=== PATIENT | male | born 1990 | race Caucasian/White ===

== ENCOUNTER 2017-10-04 20:56 | Inpatient (IN) | payer SELFPAY ==
[2017-10-04 20:58] VITALS: BP 128/55; PULSE 138; RESP 20; TEMP 37.9; O2SAT 96; BMI 20.7
--- NOTE | 2017-10-04 21:19 | RAD_ITS ---
STUDY: X-RAY - LEFT FOOT CLINICAL: Male, 27 years old. Left foot pain TECHNIQUE: 2 view(s) of the foot. COMPARISON: None. FINDINGS: Normal talus, calcaneus, and tarsal bones. Normal visualized subtalar, talonavicular, calcaneocuboid, tarsal and tarsometatarsal articulations. Normal metatarsi. Normal metatarsophalangeal joint of the great toe. Normal tibial and fibular sesamoid bones. Normal interphalangeal joint of the great toe. Normal phalanges of the great toe. Normal second through fifth metatarsophalangeal joints. Normal interphalangeal joints and phalanges of the lesser toes. The soft tissue structures are unremarkable. RAD/Foot 2 Views IMPRESSION: Normal x-ray examination of the foot. Electronically Signed: Ashley Sandra MD at 23:39 EDT Tel , Service support ,
--- NOTE | 2017-10-04 21:20 | RAD_ITS ---
STUDY: X-RAY - LEFT KNEE REASON FOR EXAM: Male, 27 years old. Pain TECHNIQUE: 2 view(s) of the knee. COMPARISON: None. FINDINGS: There is no evidence of fracture or dislocation. There are no significant degenerative changes. There are no radiodense foreign bodies. RAD/Knee 1 or 2 Views IMPRESSION: No fracture or dislocation. Electronically Signed: Keith You, at 23:22 EDT Tel , Service support ,
--- NOTE | 2017-10-04 21:21 | RAD_ITS ---
STUDY: X-RAY - PELVIS REASON FOR EXAM: Male, 27 years old. Pelvic pain TECHNIQUE: One view of the pelvis was obtained. COMPARISON: None. FINDINGS: There is a non-specific bowel gas pattern. Normal visualized soft tissue structures. Normal bilateral iliac wings, sacroiliac joints and visualized sacrum. Normal visualized bilateral superior and inferior pubic rami. Normal pubic symphysis. Normal ischial tuberosities. Bony bump at the lateral aspect of junction femoral head-neck suggesting cam type femoral acetabular impingement. Normal right acetabulum. Normal right hip joint. Bony bump at the lateral aspect of junction femoral head-neck suggesting cam type femoral acetabular impingement. Normal left acetabulum. Normal left hip joint. RAD/Pelvis 1 or 2 Views IMPRESSION: No acute bone injury of the pelvis. Electronically Signed: Ashley Sandra MD at 23:40 EDT Tel , Service support ,
[2017-10-04 22:14] LABS: Mean Corp Hgb Conc 35.1 g/gl (32-36); Mean Corpuscular Hgb 30.8 pg (27.0-32.0); Mean Corpuscular Volume 87.7 fL (80-94); Mean Platelet Vol. 11.9 fl (6.2-12.0); Platelet Count 134 K/mm3 (150-450); RBC Distribution Width CV 13.1 % (11.6-14.6); RBC Distribution Width SD 42.2 fl (35.1-43.9); Red Blood Count 4.22 M/mm3 (4.6-6.2); White Blood Count 14.2 K/mm3 (4.4-11.0)
--- NOTE | 2017-10-04 22:14 | RAD_ITS ---
XR Femur Min 2 Views INDICATION: SHOT UP WITH METH 3 WEEKS AGO IN LEFT FOOT. STATES PAIN PROGRESSING UP LEG, UNABLE TO WALK ON IT NOW COMPARISON: None TECHNIQUE: Frontal and lateral views of the left femur FINDINGS: The left femur is intact and there is normal alignment at the left hip and left knee. No evidence of radiopaque foreign body. RAD/Femur Min 2 Views IMPRESSION: Left femur is intact. at 2302 Reported and signed by: Michelle Alvarenga MD Electronically Signed: Michelle Alvarenga MD at 22:01 EDT Tel , Service support ,
[2017-10-04 22:15] LABS: Erythrocyte Sedimentation Rate 57 mm/hr (0-15)
[2017-10-04 22:16] LABS: Differential Indicated MANUAL DIFF; POSITIVE COUNT YES; POSITIVE DIFFERENTIAL YES; POSITIVE MORPHOLOGY YES
[2017-10-04 22:20] LABS: International Normalized Ratio 1.3; Prothrombin Time (Protime)PT. 16.6 SECONDS (11.7-14.9)
[2017-10-04] MEDS: 0.9% Normal Saline 1,000 ML 1000 ML IV (22:25)
[2017-10-04] MEDS: Morphine 4 MG/ML Syringe IV (22:25)
[2017-10-04 22:31] LABS: Alcohol, Blood (Medical)-Serum < 3.0 mg/dL
[2017-10-04 22:40] LABS: Lactic Acid 1.4 mmol/L (0.4-2.0)
[2017-10-04 22:47] LABS: ALB/GLOB Ratio 0.7 RATIO (0.9-2.4); AST(SGOT) 107 U/L (15-37); Alanine Aminotransfer ALT/SGPT 38 U/L (16-61); Albumin, Serum 2.8 g/dL (3.2-5.0); Alkaline Phosphatase 62 U/L (45-117); Anion Gap 12 (5-15); BUN 21 mg/dL (7-18); BUN/Creat Ratio 22.2 RATIO (10-20); Calcium,Total 8.5 mg/dL (8.5-10.1); Chloride 101 mmol/L (98-107); Creatinine, Serum 0.94 mg/dL (0.70-1.30); EST Glomerular Filtration Rate 100 mL/min (>60); Est Glom Filt Rate - Afr Amer 121 mL/min (>60); Estimated Creatinine Clearance 92.99 ml/min; Globulin 4.2 g/dL (2.2-4.2); Glucose 136 mg/dL (74-106); Potassium 4.1 mmol/L (3.5-5.1); Sodium Level 131 mmol/L (136-145)
--- NOTE | 2017-10-04 23:00 | ED.VISSUMM ---
- ER Visit Summary Date of Service: 10/04/17 Chief Complaint: [] Left lower extremity pain History of Present Illness: The patient is a 27 M [] planing of left lower extremity pain Physical Examination: [] Test Results: [] CBC shows elevated white blood cell count 14.2. BMP reveals sodium of 131, bicarbonate 18. INR 1.3. ESR 57. Lactic acid 1.4. X-rays of the hip/pelvis, femur, knee, foot do not reveal gas and are unremarkable. Emergency Department Course and Treatment: [] Patient received intravenous fluids, morphine for symptom relief. Patient was tachycardic in the 130s. Patient given intravenous vancomycin and Zosyn for intravenous drug abuse and new onset of cellulitis. In light of the patient's high white blood cell count and tachycardia he meets septic criteria. Blood cultures were obtained prior to administration of antibiotics. X-rays of the left lower extremity are negative for gas with concern for possible necrotizing fasciitis with a physical exam out of proportion for pain. Treatment Plan: [] Admission for intravenous antibiotics, fluids. Disposition: [] Admit, stable. Impression: [] Left foot cellulitis IV drug abuse Sepsis This note was generated with [employer] dictation software. It may contain incorrect words, spelling, and punctuation that were not noted in review of the chart prior to signing ED Disposition - Plan for ED Patient: Chief Complaint: Lower Extremity Injury Referrals: Care Physician,No Primary [Primary Care Provider] -
[2017-10-04 23:03] LABS: Absolute Lymphocyte Count 0.57 X10^3/ul (0.83-4.51); Absolute Neutrophil Count 11.9 X10^3/uL (2.0-7.7); Lymphocyte # 0.57 X10^3/ul (4.0); Neutrophil # 11.93 X10^3/uL (2.7-7.7); Neutrophil-Band 23 % (0-5); Neutrophil-Segmented 61 % (47-70)
[2017-10-04 23:04] LABS: Differential Comment SCANNED; Lymphocyte 4 % (19-41); Monocyte 12 % (0-10); Platelet Estimate SLT DEC (ADEQ)
[2017-10-04 23:06] LABS: Vacuolated Cells 2+
[2017-10-04 23:12] LABS: Total Cells Counted 100 (MANUAL DIFF)
[2017-10-04 23:30] VITALS: BP 142/84; PULSE 115; RESP 20; O2SAT 96
[2017-10-04 23:41] LABS: Vista UDS pH Range 6
--- NOTE | 2017-10-04 23:59 | HP.PCM_ITS ---
Problem List (1) Tobacco use Status: Chronic (2) IV drug user Status: Chronic (3) Heroin abuse Status: Chronic (4) Methamphetamine abuse Status: Chronic (5) Adderall use disorder, mild, abuse Status: Chronic (6) Left leg cellulitis Status: Acute History of Present Illness Date of Admission: 10/04/17 Chief Complaint: LLE erythema, pain, s/p IVDA The patient is a 27 y/o M w/ PMHx: Polysubstance abuse w/ IVDA w/ Heroine, Meth and Adderall, Tobacco use who presents to the [facility] ED on 10/04/17 with history of IV LLE foot injection ~ 2-3 weeks prior with meth with onset over the last several days severe LLE pain, increased warmth, severe debility with denied fevers, possible chills. Upon ED presentation he is in severe discomfort and was medicated, following falling asleep intermittently, poor historian to questioning. In the ED evaluation included T 100.3, HR 138-->115, BP 128/55, RR 20, 96% on RA, CBC w/ WBC 14.2, Hgb 13, Plts 134 with L shift, INR 1.3, CMP w/ Na 131, CO2 18, BUN/Cr 21/0.94, glucose 136, TBili 1.10, AST/ALT 107/38, CRP 297 , ESR 57, UDS pending, EtOH Unremarkable, plain films LLE without acute findings of free air per ED physician. Past Medical History Past Medical History (Chronic Problems): Chronic Problems Tobacco use (Chronic) IV drug user (Chronic) Heroin abuse (Chronic) Methamphetamine abuse (Chronic) Adderall use disorder, mild, abuse (Chronic) Allergies No Known Allergies Allergy (Verified 10/04/17 21:01) Home Medications: Ambulatory Orders Medication Instructions Recorded No Known/Unobtainable [No Known 04/24/17 Home Medications] Surgical History: no surgical history Psychiatric History: No pertinent psych hx Lives: Spouse/ Significant Other, With Family Smoking Status: Current every day smoker - 1 ppd. Tobacco Use: Cigarettes Alcohol: None Drugs: Heroin, - - Meth, Adderall all used IV. - *Family History Maternal History Items: Diabetes Paternal History Items: Diabetes Review of Systems Constitutional: Reports: Anorexia, Chills, Malaise, Weakness, Fatigue. Denies: Fever, Weight Change HEENT: Denies: Head Aches, Sinus Congestion, Sinus Drainage Cardiovascular: Denies: Chest Pain, Palpitations Respiratory: Denies: Cough, Shortness of breath at rest, Sputum production Gastrointestinal: Denies: Abdominal Pain, Nausea, Vomiting Genitourinary: Denies: Dysuria Musculoskeletal: Reports: Foot Pain, Leg Pain, Muscle pain. Denies: Joint Pain , Joint Tenderness Skin: Reports: Skin Changes. Denies: Rash, Wounds Neurological: Denies: Numbness, Tingling, Focal weakness Psychiatric: Denies: Anxiety, Depression, Homicidal Ideations, Suicidal Ideations Hematologic/ Lymphatic: Denies: Easy Bruising, Easy Bleeding VTE Information - Inpt Only VTE Present on Admission: No VTE Mechan Device Prophylaxis: SCD's VTE Pharm Prophylaxis ordered?: No Reason prophylaxis not ordered:: Medical Contraindication - Holding for any possible OR needs. Patient Problems: Active and Suspected Problems Left leg cellulitis (Acute) Subjective: Laying in the ED bed, fatigued appearance, severe pain with any palpation LLE. Objective: Physical Examination: General: patient awakens to stimuli, intermittently alert, oriented x 3 once awakened, cooperative, seated upright in the ED bed, severe pain w/ examination LLE. Skin: normal color, turgor, no icterus, cyanosis except LLE w/ mild erythema to the foot dorsally with obvious IVDA, mild erythema extending to proximal viramontes/ calf region, notable warm to touch LLE to upper thigh, severe out of proportion pain to palpation even gently LLE foot to thigh. HEENT: AT/NC, EOMI, PERRLA, dry MM, poor dentition (meth mouth), no carotid bruits or JVD noted. Lungs: CTA bilaterally, moderate effort, mild decrease BL bases, no rales, ronchi or wheezing. Heart: Tachycardic w/ regular rhythm; no gallop, rub audible. Abdomen: soft, thin habitus, NTTP, ND, normal BS, +HM. Extremities: no cyanosis, clubbing, see skin. Neurological: patient awakens to stimuli, intermittently alert, oriented x 3 once awakened; cognitive function suspect decreased from baseline; pupils equally reactive to light and accomodation, sluggish; cranial nerves II-XII grossly normal, moving all 4 extremities except severely limited LLE secondary to severe pain, strength accordingly severely globally decreased. Psychiatric: affect appears fatigued, no acute evidence of depressive or anxiety feelings. - Physical Exam Vital Signs Temp Pulse Resp BP Pulse Ox 100.3 F H 115 H 20 H 142/84 H 96 10/04/17 20:58 10/04/17 23:30 10/04/17 23:30 10/04/17 23:30 10/04/17 23:30 Oxygen Delivery Method Room Air Weight: 125 lb Body Mass Index (BMI) 20.7 Laboratory Tests Past 24 Hrs 10/04/17 10/04/17 10/04/17 21:55 21:55 21:55 WBC 14.2 H RBC 4.22 L Hgb 13.0 Hct 37.0 L MCV 87.7 MCH 30.8 MCHC 35.1 RDW 13.1 RDW Differential 42.2 Plt Count 134 L MPV 11.9 Neut % (Auto) Not Reportable Absolute Neuts (auto) 11.9 H Absolute Lymphs (auto) 0.57 L Total Counted 100 Neutrophils % (Manual) 61 Band Neutrophils % 23 H Lymphocytes % (Manual) 4 L Monocytes % (Manual) 12 H Differential Comment 2+ Diff Path Review May foll Platelet Estimate SLT DEC ESR 57 H PT 16.6 H INR 1.3 Sodium 131 L Potassium 4.1 Chloride 101 Carbon Dioxide 18.0 L Anion Gap 12 BUN 21 H Creatinine 0.94 Estim Creat Clear Calc 92.99 Est GFR (MDRD) Af Amer 121 Est GFR (MDRD) Non-Af 100 BUN/Creatinine Ratio 22.2 H Glucose 136 H Lactic Acid Calcium 8.5 Total Bilirubin 1.10 H AST 107 H ALT 38 Alkaline Phosphatase 62 C-React Prot Ext Range 297.00 H Total Protein 7.0 Albumin 2.8 L Globulin 4.2 Albumin/Globulin Ratio 0.7 L Urine Opiates Screen Urine Methadone Screen Ur Barbiturates Screen Ur Phencyclidine Scrn Ur Amphetamines Screen U Methamphetamin-MDMA U Benzodiazepines Scrn Urine Cocaine Screen U Cannabinoids Screen Ur Drug Screen Comment Ethyl Alcohol 10/04/17 10/04/17 10/04/17 21:55 21:55 23:20 WBC RBC Hgb Hct MCV MCH MCHC RDW RDW Differential Plt Count MPV Neut % (Auto) Absolute Neuts (auto) Absolute Lymphs (auto) Total Counted Neutrophils % (Manual) Band Neutrophils % Lymphocytes % (Manual) Monocytes % (Manual) Differential Comment Diff Path Review Platelet Estimate ESR PT INR Sodium Potassium Chloride Carbon Dioxide Anion Gap BUN Creatinine Estim Creat Clear Calc Est GFR (MDRD) Af Amer Est GFR (MDRD) Non-Af BUN/Creatinine Ratio Glucose Lactic Acid 1.4 Calcium Total Bilirubin AST ALT Alkaline Phosphatase C-React Prot Ext Range Total Protein Albumin Globulin Albumin/Globulin Ratio Urine Opiates Screen Pending Urine Methadone Screen Pending Ur Barbiturates Screen Pending Ur Phencyclidine Scrn Pending Ur Amphetamines Screen Pending U Methamphetamin-MDMA Pending U Benzodiazepines Scrn Pending Urine Cocaine Screen Pending U Cannabinoids Screen Pending Ur Drug Screen Comment Ethyl Alcohol < 3.0 Assessment/Plan Active and Suspected Problems Left leg cellulitis (Acute) The patient is a 27 y/o M w/ PMHx: Polysubstance abuse w/ IVDA w/ Heroine, Meth and Adderall, Tobacco use who presents to the [facility] ED on 10/04/17 with history of IV LLE foot injection ~ 2-3 weeks prior with meth with onset over the last several days severe LLE pain, increased warmth, severe debility with denied fevers, possible chills. (1) LLE Foot and Extremity Cellulitis w/ Severe Pain, Possible DVT, concern for Possible Soft Tissue Nec Infection: Will admit to MS, maintain on IV vanc and zosyn, plan repeat CBC in AM, continue affected extremity elevation above heart when seated and in bed, monitor erythema outline with VS checks. Givne presentation and severity of pain, plain films obtained in the ED to assure no evidence of free air which were unremarkable but this is only seen in rare or advanced case, CRP and ESR notably elevated, high risk patient w/ IVDA history for necrotizing soft tissue infection, will additionally obtain CT LLE w/ contrast and will also consult and contact Dr. Pack to evaluate patient, obtain TCK level. Will maintain NPO after midnight in case of operative needs. Hold on chemoprophylaxis pending evaluation in case of operative needs. PRN pain regimen, antiemetics. (2) Polysubstance Abuse, IVDA Hx w/ Elevated LFTs: Elevated LFTs w/ admission AST/ALT 107/38, denies ETOH use/abuse. Will obtain HIV, hepatitis panel. Notes heroine IV, meth IV as well as crushed adderall IV. He is a poor historian in regards to timeline and amount of usage. UDS pending upon admission. CM consulted. Notes he lives with his who is a non-user and children. (3) Tobacco Abuse: Encouraged cessation, inpatient consultation per RT, NR if desired. (4) Hyponatremia, Hypovolemic: Na 131 upon admission, BUN 21, suspect moderately dehydration, continue IVFs. (5) Hyperglycemia: Admission glucose 136, likely stress with acute infection. (6) DVT Prophylaxis: SCD to RLE, hold chemoprophylaxis pending CT LLE and Dr. Pack evaluation. Code Visit Inpatient E&M: 47490 Init Hosp L3
[2017-10-05] LABS: Amphetamine Urine VISTA POSITIVE (<1000 ng/mL); Barbiturate Urine VISTA NEGATIVE (< 200 ng/mL); Benzodiazepine Urine VISTA NEGATIVE (< 200 ng/mL); Cocaine Urine VISTA NEGATIVE (< 300 ng/mL); Ecstacy Urine VISTA NEGATIVE (< 500 ng/mL); Methadone Urine VISTA NEGATIVE (< 300 ng/mL); PCP Urine VISTA NEGATIVE (< 25 ng/mL); THC Urine VISTA NEGATIVE (< 50 ng/mL)
--- NOTE | 2017-10-05 00:28 | CT_ITS ---
STUDY: CT LEFT FEMUR WITH CONTRAST REASON FOR EXAM: Male, 27 years old. Extensive edema in the anterior medial and posterior compartments of the thigh. RADIATION DOSAGE (If Supplied By Facility): CTDIvol = ( 15.35 ) mGy, DLP = ( 1654.77 ) mGycm TECHNIQUE: Transaxial CT imaging of the femur was performed post contrast administration. The examination was performed with intravenous administration of 100ML ml of Isovue 300 contrast material. Sagittal and coronal images were reconstructed. Individualized dose optimization techniques were used for this CT. COMPARISON: None. FINDINGS: Normal visualized femur. There is extensive edema along the anterior, medial and posterior compartments of the thigh consistent with cellulitis. There is no evidence of abscess formation. There is no air in the soft tissues. There is no evidence of osteomyelitis. There is no enhancing abnormality. CT/Extremity Lower WITH Contrast IMPRESSION: Extensive edema in the anterior medial and posterior compartments of the thigh. Electronically Signed: Ashley Sandra MD at 2:28 EDT Tel , Service support ,
[2017-10-05 00:30] VITALS: BP 143/94; PULSE 108; RESP 16; TEMP 38; O2SAT 98
[2017-10-05 00:37] VITALS: BMI 21.5
[2017-10-05 00:45] VITALS: BMI 21.6
--- NOTE | 2017-10-05 00:59 | PCM.RX.CS ---
Consult Pharmacy has been consulted to manage selected antiobiotic: Vancomycin Type of Consult: New start Suspected Infection: Skin/Soft tissue Prior Doses of Antibiotics Received/Current Regimen: Medications Vancomycin HCl 750 mg/ (Dextrose) 265 mls @ 250 mls/hr IV Q8H MICHEL Discontinued Medications Vancomycin HCl 1,000 mg/ N/A 200 mls @ 200 mls/hr IV X1 THEN RX TO DOSE ONE Stop: 10/04/17 23:55 Last Admin: 10/05/17 00:06 Dose: 200 mls/hr Labs: Sodium 131 mmol/L (136-145) L 10/04/17 21:55 Potassium 4.1 mmol/L (3.5-5.1) 10/04/17 21:55 Chloride 101 mmol/L (98-107) 10/04/17 21:55 Carbon Dioxide 18.0 mmol/L (21.0-32.0) L 10/04/17 21:55 Anion Gap 12 (5-15) 10/04/17 21:55 BUN 21 mg/dL (7-18) H 10/04/17 21:55 Creatinine 0.94 mg/dL (0.70-1.30) 10/04/17 21:55 Est GFR (MDRD) Af Amer 121 mL/min (>60) 10/04/17 21:55 Est GFR (MDRD) Non-Af 100 mL/min (>60) 10/04/17 21:55 BUN/Creatinine Ratio 22.2 RATIO (10-20) H 10/04/17 21:55 Glucose 136 mg/dL (74-106) H 10/04/17 21:55 Weight used for dosin.8 kg Estimated Creatinine Clearance: 96 Goal Trough: 10-15 mcg/mL Pharmacy Plan for Drug Dosing: Pharmacy Service will continue to monitor and adjust dosing as required. Follow-Up Labs: Trough Vancomycin Labs to be done on [date and time ordered]: 10/06/17 @2795
--- NOTE | 2017-10-05 01:22 | NURSING ---
Pt taken to CT at this time per Lynette GILLETTE
--- NOTE | 2017-10-05 01:38 | NURSING ---
retuned to room from ct
[2017-10-05] MEDS: 0.9% Normal Saline 1,000 ML 999 ML IV (02:12)
[2017-10-05] MEDS: 0.9% NaCl Peripheral Flush Adult/Peds IV (02:12)
[2017-10-05 03:02] LABS: CPK Total, Creatine Kinase 3249 U/L (39-308); Magnesium 2.5 mg/dL (1.6-2.6); Phosphorus 1.7 mg/dL (2.5-4.9)
--- NOTE | 2017-10-05 03:04 | PCM.DC.SUM ---
Discharge Date and Diagnosis - Problem List Patient Problems: Active and Suspected Problems Left leg cellulitis (Acute) Date of Admission: 10/04/17 Date of Discharge: 10/05/17 - Primary Discharge Diagnosis Active and Suspected Problems Left leg cellulitis s/p IVDA with injection into L foot Acute LLE Thigh Compartment Syndrome IVDA (Heroin, Meth, Adderall) Tobacco use - Secondary Discharge Diagnosis Chronic Problems Tobacco use (Chronic) IV drug user (Chronic) Heroin abuse (Chronic) Methamphetamine abuse (Chronic) Adderall use disorder, mild, abuse (Chronic) Hospital Course and Treatment Imaging Results: 10/05/17 00:28 Extremity Lower WITH Contrast [CT] Stat Dr. Pack and Dr. Mckay were both consulted on the case and following discussions and review of imaging, patient transferred to Tertiary Care Facility Operations: None Procedures: None Summary of Care Provided: The patient is a 27 y/o M w/ PMHx: Polysubstance abuse w/ IVDA w/ Heroine, Meth and Adderall, Tobacco use who presented to the [facility] ED on 10/04/17 with history of IV LLE foot injection ~ 2-3 weeks prior with meth with onset over the last several days severe LLE pain, increased warmth, severe debility with denied fevers, possible chills. Upon ED presentation he is in severe discomfort and was medicated, following falling asleep intermittently, poor historian to questioning. In the ED evaluation included T 100.3, HR 138-->115, BP 128/55, RR 20, 96% on RA, CBC w/ WBC 14.2, Hgb 13, Plts 134 with L shift, INR 1.3, CMP w/ Na 131, CO2 18, BUN/Cr 21/0.94, glucose 136, TBili 1.10, AST/ALT 107/38, CRP 297, ESR 57, UDS w/ + opiate, meth, EtOH Unremarkable, plain films LLE without acute findings of free air per ED physician. The patient was admitted to SD, maintained on IV vanc and zosyn, affected extremity elevation above heart when seated and in bed, monitoring of erythema outline with VS checks. Given presentation and severity of pain, although plain films obtained in the ED to assure no evidence of free air which were unremarkable given severity of pain and atypical presentation w/ notably elevated CRP, ESR, high risk patient w/ IVDA history for necrotizing soft tissue infection, additionally obtained CT LLE w/ contrast and contacted Dr. Pack for possible operative needs. CT LLE resulted with thigh compartment syndrome w/ evidence cellulitis which was discussed with Dr. Pack, plastic surgeon who recommended Orthopedic surgery involvement. Case discussed with Dr. Mckay, who recommended transfer of patient to Tertiary care facility. [facility] was contacted and Orthopedic surgeon, Dr. Banegas agreed to transfer and care of this patient. Films and records requested from [facility] Staff to be prepared for transfer. contact number was utilized to attempt to relay current events and emergent need for contact, but the number is not longer function the recording notes. Discussed with RN on [facility] and they noted this was the only number they had available also. Given there severity of presentation patient to be transferred and requested nursing charge staff be on alert when spouse calls in to update on transfer. Home Medications: Medications to take at Discharge No Known/Unobtainable [No Known Home Medications] 04/24/17 Primary Care Physician: Care Physician,No Primary [Primary Care Provider] - Disposition: Acute care Hospital Minutes spent on discharge:: 45 Patient Condition:: Critical Medical Necessity - Tobacco Use Smoking Status: Current every day smoker Tobacco Use: Cigarettes Meaningful Use Info Meaningful Use Diagnoses (Choose all that apply): None applicable Code Visit OBSV E&M: 71092 Observ/hosp same date L3
--- NOTE | 2017-10-05 03:15 | NURSING ---
Dr. Ashley attempted to contact pt's with number on chart without success.
--- NOTE | 2017-10-05 03:17 | DS.PCM_ITS ---
Discharge Date and Diagnosis - Problem List Patient Problems: Active and Suspected Problems Left leg cellulitis (Acute) Date of Admission: 10/04/17 Date of Discharge: 10/05/17 - Primary Discharge Diagnosis Active and Suspected Problems Left leg cellulitis s/p IVDA with injection into L foot Acute LLE Thigh Compartment Syndrome IVDA (Heroin, Meth, Adderall) Tobacco use - Secondary Discharge Diagnosis Chronic Problems Tobacco use (Chronic) IV drug user (Chronic) Heroin abuse (Chronic) Methamphetamine abuse (Chronic) Adderall use disorder, mild, abuse (Chronic) Hospital Course and Treatment Imaging Results: 10/05/17 00:28 Extremity Lower WITH Contrast [CT] Stat Dr. Pack and Dr. Mckay were both consulted on the case and following discussions and review of imaging, patient transferred to Tertiary Care Facility Operations: None Procedures: None Summary of Care Provided: The patient is a 27 y/o M w/ PMHx: Polysubstance abuse w/ IVDA w/ Heroine, Meth and Adderall, Tobacco use who presented to the [facility] ED on 10/04/17 with history of IV LLE foot injection ~ 2-3 weeks prior with meth with onset over the last several days severe LLE pain, increased warmth, severe debility with denied fevers, possible chills. Upon ED presentation he is in severe discomfort and was medicated, following falling asleep intermittently, poor historian to questioning. In the ED evaluation included T 100.3, HR 138-->115, BP 128/55, RR 20, 96% on RA, CBC w/ WBC 14.2, Hgb 13, Plts 134 with L shift, INR 1.3, CMP w/ Na 131, CO2 18, BUN/Cr 21/0.94, glucose 136, TBili 1.10, AST/ALT 107/38, CRP 297 , ESR 57, UDS w/ + opiate, meth, EtOH Unremarkable, plain films LLE without acute findings of free air per ED physician. The patient was admitted to MD, maintained on IV vanc and zosyn, affected extremity elevation above heart when seated and in bed, monitoring of erythema outline with VS checks. Given presentation and severity of pain, although plain films obtained in the ED to assure no evidence of free air which were unremarkable given severity of pain and atypical presentation w/ notably elevated CRP, ESR, high risk patient w/ IVDA history for necrotizing soft tissue infection, additionally obtained CT LLE w/ contrast and contacted Dr. Pack for possible operative needs. CT LLE resulted with thigh compartment syndrome w/ evidence cellulitis which was discussed with Dr. Pack, plastic surgeon who recommended Orthopedic surgery involvement. Case discussed with Dr. Mckay, who recommended transfer of patient to Tertiary care facility. [facility] was contacted and Orthopedic surgeon, Dr. Banegas agreed to transfer and care of this patient. Films and records requested from [facility] Staff to be prepared for transfer. contact number was utilized to attempt to relay current events and emergent need for contact, but the number is not longer function the recording notes. Discussed with RN on [facility] and they noted this was the only number they had available also. Given there severity of presentation patient to be transferred and requested nursing charge staff be on alert when spouse calls in to update on transfer. Home Medications: Medications to take at Discharge No Known/Unobtainable [No Known Home Medications] 04/24/17 Primary Care Physician: Care Physician,No Primary [Primary Care Provider] - Disposition: Acute care Hospital Minutes spent on discharge:: 45 Patient Condition:: Critical Medical Necessity - Tobacco Use Smoking Status: Current every day smoker Tobacco Use: Cigarettes Meaningful Use Info Meaningful Use Diagnoses (Choose all that apply): None applicable Code Visit OBSV E&M: 85267 Observ/hosp same date L3
[2017-10-05 03:20] VITALS: O2SAT 98
--- NOTE | 2017-10-05 03:32 | NURSING ---
Report given to NAIN Plascencia at [facility]. Pt being transferred via [facility] to bed 5251.
[2017-10-05 03:45] VITALS: BP 133/75; PULSE 124; RESP 24; TEMP 39.3; O2SAT 96
--- NOTE | 2017-10-05 03:45 | NURSING ---
Report and care to [facility] Care per Lynette GILLETTE, pt transferred to [facility] at this time.
[2017-10-05 09:55] LABS: HIV - WCH Non-Reactive (Nonreactive)
[2017-10-05 14:46] LABS: Pathologist Review Reviewed
== END 2017-10-05 03:45 | disposition short-term general hospital (02) | DRG 872 ==
LOC: ED 22:11 → MS2 23:34
PROVIDERS: Admitting Provider Family Medicine; Emergency Provider Emergency Medicine; Visit Provider Family Medicine
DX: A41.9 Sepsis, unspecified organism (principal); T79.A22A Traumatic compartment syndrome of left lower extremity, initial encounter; L03.116 Cellulitis of left lower limb; E87.1 Hypo-osmolality and hyponatremia; E86.0 Dehydration; E86.1 Hypovolemia; R73.9 Hyperglycemia, unspecified; X58.XXXA Exposure to other specified factors, initial encounter; F11.10 Opioid abuse, uncomplicated; F15.10 Other stimulant abuse, uncomplicated; F17.210 Nicotine dependence, cigarettes, uncomplicated
CPT/HCPCS: 36415; 72170; 73552; 73560; 73620; 73701; 80053; 80307; 80320; 82550; 83605; 83735; 84100; 85025; 85610; 85652; 86140; 86703; 87040; 99285; J7030; Q9967; A4216; G0480

== ENCOUNTER 2017-11-30 16:24 | Emergency (ER) | payer SELFPAY ==
--- NOTE | 2017-11-30 16:24 | DT_ITS ---
This patient was seen during an EMR downtime November 30, 2017 - December 07, 2017. This patient may have a combination of paper and electronic documentation or all paper documentation. All documentation is viewable within the e-chart portion of [employer] for each patient visit.
[2017-12-03 12:12] LABS: Anion Gap 8 (5-15); BUN 6 mg/dL (7-18); BUN/Creat Ratio 10.7 RATIO (10-20); Calcium,Total 8.4 mg/dL (8.5-10.1); Chloride 97 mmol/L (98-107); Creatinine, Serum 0.56 mg/dL (0.70-1.30); EST Glomerular Filtration Rate 183 mL/min (>60); Est Glom Filt Rate - Afr Amer 222 mL/min (>60); Glucose 75 mg/dL (74-106); Potassium 3.7 mmol/L (3.5-5.1); Sodium Level 135 mmol/L (136-145)
[2017-12-04 09:01] LABS: Absolute Lymphocyte Count 2.76 X10^3/ul (0.83-4.51); Absolute Neutrophil Count 8.7 X10^3/uL (2.0-7.7); Basophil# 0.05 X10^3/uL; Basophil% 0.4 % (0-1); Differential Comment SCANNED; Differential Indicated SCAN CRITERIA MET; Eosinophil# 0.21 X10^3/uL; Eosinophils% 1.6 % (0-5); Hematocrit 31.6 % (40-54); Hemoglobin 10.2 g/dl (13.0-16.5); Lymphocyte # 2.76 X10^3/ul (4.0); Lymphocyte % 21.3 % (19-41); Mean Corp Hgb Conc 32.3 g/gl (32-36); Mean Corpuscular Hgb 28.1 pg (27.0-32.0); Mean Corpuscular Volume 27.1 fL (80-94); Monocyte% 9.3 % (0-10); Neutrophil # 8.69 X10^3/uL (2.7-7.7); Neutrophil % 67.1 % (47-70); POSITIVE COUNT NO; POSITIVE DIFFERENTIAL NO; POSITIVE MORPHOLOGY YES; Platelet Count 283 K/mm3 (150-450); RBC Distribution Width CV 14.2 % (11.6-14.6); RBC Distribution Width SD 43.8 fl (35.1-43.9); Red Blood Count 3.63 M/mm3 (4.6-6.2)
== END 2017-11-30 23:08 | disposition home or self-care (01) ==
LOC: ED 12-02 17:43
PROVIDERS: Emergency Provider Emergency Medicine
DX: Z09 Encounter for follow-up examination after completed treatment for conditions other than malignant neoplasm (principal); L02.414 Cutaneous abscess of left upper limb; Z72.0 Tobacco use
CPT/HCPCS: 36415; 80048; 85025; 87040; 96365; 96366; 99284; J7030; J7040; J7050; A4216

== ENCOUNTER 2018-04-17 05:15 | Emergency (ER) | payer MEDICAID, SELFPAY ==
[2018-04-17 05:16] VITALS: BP 133/89; PULSE 90; RESP 16; TEMP 36.5; O2SAT 99; BMI 21.6
--- NOTE | 2018-04-17 05:54 | ED.VISSUMM ---
- ER Visit Summary Date of Service: 04/17/18 Chief Complaint: Heroin abuse History of Present Illness: The patient is a 28 M who states that he spoke with [facility] on the phone yesterday and was told to come to the emergency department at 0500 hours and the ER has to admit him. He states that he last got high on night. He last injected yesterday at 1600 hrs. but it was not enough to get high. He states that he made the decision to get clean yesterday. He took some leftover Seroquel he had from when he was living in [place] and slept most of the day. He states he is having a lot of nausea but he last vomited yesterday. He also states he uses methamphetamines as well as drinks a pint of alcohol a day. The patient states that he is very sweaty in his legs and his arms are hurting him. He denies any auditory or visual hallucinations. He denies any suicidal homicidal Physical Examination: Afebrile vital signs are stable Please see T-sheet for details Emergency Department Course and Treatment: Patient scored a 10 on the CINA score. Patient scored a 12 on the CIWA-AR score. I explained to the patient that he did not meet the required number for admission and he became angry and left. The patient states that we can just see him again when he overdoses. I tried to explain to the patient that perhaps he needs to see if he develops any more withdrawal symptoms to meet inpatient detox otherwise I would recommend outpatient follow-up. Again he stormed out of the emergency department. Impression: 1. Polysubstance drug abuse This note was generated with [employer] dictation software. It may contain incorrect words, spelling, and punctuation that were not noted in review of the chart prior to signing ED Disposition - Plan for ED Patient: Disposition: Home or Assisted Living Chief Complaint: Substance Abuse Instructions: ED Drug Abuse General Referrals: EIGHTY,ONE [STAFF PHYSICIAN] - As soon as possible
[2018-04-17 06:10] VITALS: BP 132/41; PULSE 92; RESP 18; O2SAT 98
== END 2018-04-17 06:08 | disposition home or self-care (01) ==
PROVIDERS: Emergency Provider Emergency Medicine
DX: F11.10 Opioid abuse, uncomplicated (principal); F15.10 Other stimulant abuse, uncomplicated; R11.0 Nausea; Z72.0 Tobacco use
CPT/HCPCS: 99282

== ENCOUNTER 2018-04-19 11:02 | Inpatient (IN) | payer MEDICAID, SELFPAY ==
[2018-04-19 11:19] VITALS: BMI 22.0
[2018-04-19 11:22] VITALS: BMI 22.0
[2018-04-19 11:29] VITALS: BP 127/90; PULSE 95; PULSE 98; RESP 18; TEMP 36.4; O2SAT 100
[2018-04-19] MEDS: 0.9% Normal Saline 1,000 ML 999 ML IV (12:02)
[2018-04-19] MEDS: Methocarbamol 750 MG Tablet PO ×2 (12:32→20:21)
[2018-04-19] MEDS: Ondansetron ODT 4 MG Tablet PO (12:32)
[2018-04-19] MEDS: Dicyclomine 10 MG Capsule 20 MG PO (12:32)
[2018-04-19] MEDS: cloNIDine HCl 0.1 MG Tablet PO ×3 (12:32→20:20)
--- NOTE | 2018-04-19 12:37 | HP.PCM_ITS ---
Problem List (1) Alcohol withdrawal delirium, acute, hyperactive Status: Acute (2) Opioid withdrawal delirium, acute, hyperactive Status: Acute (3) Polysubstance (including opioids) dependence, daily use Status: Acute (4) Left leg cellulitis Status: Resolved (5) Adderall use disorder, mild, abuse Status: Chronic (6) Heroin abuse Status: Chronic (7) IV drug user Status: Chronic (8) Methamphetamine abuse Status: Chronic (9) Tobacco use Status: Chronic History of Present Illness Date of Admission: 04/19/18 Chief Complaint: Alcohol and opioid withdrawal symptoms The patient is a 28 year old M with history of polysubstance use including chronic alcohol use, heroin IV use, methamphetamine and nicotine was directly a dmitted on floor through [facility] program for medical stabilization of withdrawal symptoms. Patient is having nausea, vomiting and diarrhea started about 7 PM yesterday. Patient had about 5 watery diarrhea and vomited to 3 times bilious in nature. Patient is shivering, tremors, feeling cold hot flashes. Patient ALEXANDRIA a score is 23 and CIWA score is 24. Patient drinks 1 pint of vodka daily started at the age of 10. Last use on 04/18. Uses heroin 2 g IV daily since age of 18. Last use 04/18. Methamphetamine half grams daily since age of 19 last use 2 days ago. Smokes cigarettes 1 pack daily since age of 14, last used today Patient denies history of allergy with Suboxone but says his allergic to naloxone. Denies suicidal ideation or thoughts. Patient had left thigh cellulitis complicated into abscess which needs incision and drainage last year. The patient has surgical scar and all well-healed. [] Past Medical History Past Medical History (Chronic Problems): Chronic Problems Tobacco use (Chronic) IV drug user (Chronic) Heroin abuse (Chronic) Methamphetamine abuse (Chronic) Adderall use disorder, mild, abuse (Chronic) Allergies buprenorphine [From Suboxone] Allergy (Verified 04/17/18 05:23) Other naloxone [From Suboxone] Allergy (Verified 04/17/18 05:23) Other Home Medications: Ambulatory Orders Medication Instructions Recorded No Known/Unobtainable [No Known 04/24/17 Home Medications] Surgical History: no surgical history Psychiatric History: No pertinent psych hx Smoking Status: Heavy Smoker (>10/day) Tobacco Use: Cigarettes Alcohol: Heavy Drugs: Heroin, - - Methamphetamine - *Family History Maternal History Items: Diabetes Paternal History Items: Diabetes Review of Systems Constitutional: Reports: Chills, Malaise, Weakness, Fatigue. Denies: Fever, W eight Change Eyes: Reports: Blurred vision HEENT: Denies: Head Aches, Sinus Congestion, Sinus Drainage Cardiovascular: Denies: Chest Pain, Palpitations Respiratory: Denies: Cough, Shortness of breath at rest, Sputum production Gastrointestinal: Reports: Diarrhea, Vomiting. Denies: Abdominal Pain, Hematemesis, Hematochezia, Nausea Genitourinary: Denies: Dysuria Musculoskeletal: Reports: Muscle pain. Denies: Joint Pain, Joint Tenderness Skin: Denies: Rash, Wounds Neurological: Reports: Blurred vision, Incoordination. Denies: Focal weakness, Numbness, Tingling Psychiatric: Reports: Anxiety. Denies: Depression, Homicidal Ideations, Suicidal Ideations Hematologic/ Lymphatic: Denies: Easy Bruising, Easy Bleeding VTE Information - Inpt Only VTE Present on Admission: No VTE Mechan Device Prophylaxis: None VTE Pharm Prophylaxis ordered?: Yes Reason prophylaxis not ordered:: Procedure Not Indicated - Low risk. Patient Problems: Active and Suspected Problems Alcohol withdrawal delirium, acute, hyperactive (Acute) Opioid withdrawal delirium, acute, hyperactive (Acute) Polysubstance (including opioids) dependence, daily use (Acute) - Physical Exam General: Alert, Oriented x3, Cooperative, - - Hyperactive and restless HEENT: Atraumatic, PERRLA, EOMI, Normocephalic Oral: Dry Mucosa Neck: Supple, No JVD, Negative Carotid Bruits Lungs: Clear to auscultation, No rhonchi, No wheeze, No rales, Diminished Cardiovascular: Regular rate, No murmurs Abdomen: Bowel Sounds Present, Soft, Non Tender, Non-Distended Extremities: No edema, Capillary Refill Less than 3 Seconds Skin: No rashes, Rash Present - Skin track dougie of needle use in both arms., - - Surgical scar over posterior aspect of left thigh of previous abscess drainage Musculoskeletal: No Tenderness to Palpation of Joints or Extremities Neurological: Cranial nerves II-XII grossly intact, Motor Exam 5/5 strength throughout, - - Restless, hyperactive and tremor. Psych/Mental Status: Normal Affect, Appropriate Vital Signs Temp Pulse Resp BP Pulse Ox 97.5 F L 98 18 127/90 H 100 10/22/18 11:29 04/19/18 11:29 04/19/18 11:29 04/19/18 11:29 04/19/18 11:29 Oxygen Delivery Method Room Air Weight: 132 lb 8 oz Body Mass Index (BMI) 22.0 Assessment/Plan All Active Problems Left leg cellulitis (Resolved) Alcohol withdrawal delirium, acute, hyperactive (Acute) Opioid withdrawal delirium, acute, hyperactive (Acute) Polysubstance (including opioids) dependence, daily use (Acute) The patient is a 28 year old M with history of polysubstance use including chronic alcohol use, heroin IV use, methamphetamine and nicotine was directly ad mitted on floor through [facility] program for medical stabilization of withdrawal symptoms. Patient is having nausea, vomiting and diarrhea started about 7 PM yesterday. Patient had about 5 watery diarrhea and vomited to 3 times bilious in nature. Patient is shivering, tremors, feeling cold hot flashes. Patient ALEXANDRIA a score is 23 and CIWA score is 24. Patient drinks 1 pint of vodka daily started at the age of 10. Last use on 04/18. Uses heroin 2 g IV daily since age of 18. Last use 04/18. Methamphetamine half grams daily since age of 19 last use 2 days ago. Smokes cigarettes 1 pack daily since age of 14, last used today Patient denies history of allergy with Suboxone but says his allergic to naloxone. Denies suicidal ideation or thoughts. Patient had left thigh cellulitis complicated into abscess which needs incision and drainage last year. The patient has surgical scar and all well-healed. [] 1. Acute severe alcohol withdrawal, hyperactive with delirium with chronic alcohol use and dependence: Patient is being admitted on the regular floor. IV fluid normal saline 1 L bolus ordered and then 150 mils per hour. IV thiamine, IV Ativan as needed and Librium scheduled. On CIWA scale monitoring. Monitor intake and output. Folic acid and multivitamin. Labs ordered. 2. Acute opioid/heroin withdrawal with history of opioid use and dependence: On CINA scale monitoring. On Librium and buprenorphine taper. On medications as per [facility] protocol to control the withdrawal symptoms. 3. Methamphetamine use: General symptom management. Counseling done. 4. Nicotine use and dependence with cigarettes: On nicotine patch. DVT prophylaxis: Low risk; early ambulation encouraged. Code Visit Inpatient E&M: 47597 Init Hosp L3
[2018-04-19] MEDS: Buprenorphine HCl 2 MG TAB.SUBL 4 MG SL (12:55)
[2018-04-19] MEDS: chlordiazePOXIDE 25 MG Capsule PO ×2 (13:02→18:30)
[2018-04-19] MEDS: 0.9% Normal Saline 1,000 ML 150 ML IV (13:03)
[2018-04-19 13:35] LABS: Absolute Lymphocyte Count 2.11 X10^3/ul (0.83-4.51); Absolute Neutrophil Count 5.1 X10^3/uL (2.0-7.7); Basophil# 0.02 X10^3/uL; Basophil% 0.2 % (0-1); Eosinophils% 2.5 % (0-5); Hematocrit 40.1 % (40-54); Hemoglobin 13.2 g/dl (13.0-16.5); Lymphocyte # 2.11 X10^3/ul (4.0); Lymphocyte % 25.9 % (19-41); Mean Corp Hgb Conc 32.9 g/gl (32-36); Mean Corpuscular Hgb 29.8 pg (27.0-32.0); Mean Corpuscular Volume 90.5 fL (80-94); Mean Platelet Vol. 12.3 fl (6.2-12.0); Monocyte% 8.6 % (0-10); Neutrophil # 5.11 X10^3/uL (2.7-7.7); Neutrophil % 62.7 % (47-70); Platelet Count 173 K/mm3 (150-450); RBC Distribution Width CV 13.7 % (11.6-14.6); RBC Distribution Width SD 45.1 fl (35.1-43.9); Red Blood Count 4.43 M/mm3 (4.6-6.2); White Blood Count 8.2 K/mm3 (4.4-11.0)
[2018-04-19 13:46] LABS: POSITIVE COUNT NO; POSITIVE DIFFERENTIAL NO; POSITIVE MORPHOLOGY NO
[2018-04-19 13:50] LABS: Prothrombin Time (Protime)PT. 13.2 SECONDS (11.7-14.9)
[2018-04-19 13:51] LABS: Alcohol, Blood (Medical)-Serum < 3.0 mg/dL
[2018-04-19 13:52] LABS: Amphetamine Urine VISTA NEGATIVE (<1000 ng/mL); Barbiturate Urine VISTA NEGATIVE (< 200 ng/mL); Benzodiazepine Urine VISTA NEGATIVE (< 200 ng/mL); Cocaine Urine VISTA NEGATIVE (< 300 ng/mL); Ecstacy Urine VISTA NEGATIVE (< 500 ng/mL); Methadone Urine VISTA NEGATIVE (< 300 ng/mL); PCP Urine VISTA NEGATIVE (< 25 ng/mL); THC Urine VISTA NEGATIVE (< 50 ng/mL); Vista UDS pH Range 6
[2018-04-19 13:57] LABS: ALB/GLOB Ratio 0.9 RATIO (0.9-2.4); AST(SGOT) 20 U/L (15-37); Alanine Aminotransfer ALT/SGPT 18 U/L (16-61); Albumin, Serum 3.3 g/dL (3.2-5.0); Alkaline Phosphatase 73 U/L (45-117); Amylase 58 U/L (25-115); Anion Gap 6 (5-15); BUN 6 mg/dL (7-18); BUN/Creat Ratio 9.6 RATIO (10-20); Calcium,Total 8.1 mg/dL (8.5-10.1); Chloride 106 mmol/L (98-107); Creatinine, Serum 0.62 mg/dL (0.70-1.30); EST Glomerular Filtration Rate 161 mL/min (>60); Est Glom Filt Rate - Afr Amer 195 mL/min (>60); Globulin 3.7 g/dL (2.2-4.2); Glucose 95 mg/dL (74-106); Lipase 133 U/L (73-393); Potassium 4.4 mmol/L (3.5-5.1); Sodium Level 140 mmol/L (136-145)
[2018-04-19 14:47] LABS: Bacteria 0 SEEN /hpf (None Seen); Mucous, Urine 0 SEEN /hpf (<or=2+); Red Blood Cells-Urine 0 SEEN /hpf (0-5); Squamous Epithelial Cells - UA 0 SEEN /hpf (0-5); White Blood Cells 0 SEEN /hpf (0-5)
[2018-04-19 14:48] LABS: Color, Urine Yellow (Yellow); Glucose, Dipstick Normal (Normal); Ketone-Dipstick Negative (Negative); Leukocyte Esterase-Dipstick Negative /ul (Negative); Nitrite-Dipstick Negative (Negative); Occult Blood-Urine Negative /ul (Negative); Protein-Dipstick Negative (Negative); Urine Bilirubin Dipstick Negative (Negative); Urine Clarity Clear (Clear); Urine Urobilinogen Normal (Normal)
[2018-04-19 15:00] VITALS: BP 114/71; PULSE 63; RESP 18; TEMP 36.6; O2SAT 100
[2018-04-19] MEDS: Multivitamins,Therapeutic Tablet 1 TABLET PO (17:09)
[2018-04-19 18:27] VITALS: BP 129/74; PULSE 72; RESP 16; TEMP 36.4; O2SAT 98
[2018-04-19 20:13] VITALS: BP 122/69; PULSE 78; RESP 20; TEMP 36.7
[2018-04-19] MEDS: Pramipexole Di-HCl 0.25 MG Tablet PO (20:20)
[2018-04-19] MEDS: Buprenorphine HCl 2 MG TAB.SUBL SL (20:21)
[2018-04-19] MEDS: hydrOXYzine PAM 25 MG Capsule 50 MG PO (20:21)
[2018-04-19] MEDS: traZODone 50 MG Tablet PO (22:18)
[2018-04-20] VITALS (8 sets, daily range): BP systolic 105–117; BP diastolic 53–64; PULSE 74–81; RESP 16–18; TEMP 36.5–36.9; O2SAT 98–99
[2018-04-20] MEDS: chlordiazePOXIDE 25 MG Capsule PO ×4 (00:20→22:30)
[2018-04-20] MEDS: Buprenorphine HCl 2 MG TAB.SUBL SL ×3 (04:16→21:14)
[2018-04-20] MEDS: hydrOXYzine PAM 25 MG Capsule 50 MG PO ×3 (04:16→21:14)
[2018-04-20] MEDS: Mag Hydrox/Al Hydrox/Simeth 30 ML UDC PO (04:16)
--- NOTE | 2018-04-20 08:13 | PN_ITS ---
Patient Problems: Active and Suspected Problems Alcohol withdrawal delirium, acute, hyperactive (Acute) Opioid withdrawal delirium, acute, hyperactive (Acute) Polysubstance (including opioids) dependence, daily use (Acute) Subjective: Patient is feeling better in regards to the withdrawal symptoms. Tremor has improved. Stool has become more thick. IV fluid discontinued. Heart rate is controlled. No hallucinations/illusions. Vitals/I&O's: Vital Signs Temp Pulse Resp BP Pulse Ox 98.4 F 80 18 108/64 98 04/20/18 04:11 04/20/18 04:11 04/20/18 04:11 04/20/18 04:11 04/19/18 18:27 Oxygen Delivery Method Room Air Weight: 132 lb 8 oz Body Mass Index (BMI) 22.0 Intake and Output for Last 24 Hours 04/18/18 04/19/18 04/20/18 23:59 23:59 23:59 Intake Total 1981 Balance 1981 General: Alert, Oriented x3, Cooperative HEENT: Atraumatic, PERRLA, EOMI, Normocephalic Oral: Moist Mucosa Neck: Supple, No JVD, Negative Carotid Bruits Lungs: Clear to auscultation, Normal air movement Cardiovascular: Regular rate, No murmurs Abdomen: Bowel Sounds Present, Soft, Non Tender Extremities: No edema, Capillary Refill Less than 3 Seconds Skin: Rash Present - Small erythematous rash with this And surrounding cellulitis on the posterior aspect of right neck. Left posterior triangle lymphadenopathy. left axillary region small abscess with lymphadenopathy, - - Scar dougie of previous incision and drainage of abscess in the left posterior aspect of thigh Musculoskeletal: No Tenderness to Palpation of Joints or Extremities Lymphatic: - - Left posterior triangle lymphadenopathy. Left axillary lympha denopathy Neurological: Cranial nerves II-XII grossly intact, Deep Tendon Reflexes 2+/4 and Symmetrical, Neuro grossly intact, Motor Exam 5/5 strength throughout Psych/Mental Status: Appropriate, Anxious, Restless Laboratory Results 04/19/18 13:05: Urine Opiates Screen POSITIVE H, Urine Methadone Screen NEGATIVE, Ur Barbiturates Screen NEGATIVE, Ur Phencyclidine Scrn NEGATIVE, Ur Amphetamines Screen NEGATIVE, U Methamphetamin-MDMA NEGATIVE, U Benzodiazepines Scrn NEGATIVE, Urine Cocaine Screen NEGATIVE, U Cannabinoids Screen NEGATIVE, Ur Drug Screen Comment 04/19/18 13:05: Urine Color Yellow, Urine Clarity Clear, Urine pH 8.0, Ur Specific Zwingle 1.010, Urine Protein Negative, Urine Glucose (UA) Normal, Urine Ketones Negative, Urine Occult Blood Negative, Urine Nitrite Negative, Urine Bilirubin Negative, Urine Urobilinogen Normal, Ur Leukocyte Esterase Negative, Urine RBC 0 SEEN, Urine WBC 0 SEEN, Ur Squamous Epith Cells 0 SEEN, Urine Bacteria 0 SEEN, Urine Mucus 0 SEEN 04/19/18 13:20: WBC 8.2, RBC 4.43 L, Hgb 13.2, Hct 40.1, MCV 90.5, MCH 29.8, MCHC 32.9, RDW 13.7, RDW Differential 45.1 H, Plt Count 173, MPV 12.3 H, Immature Gran % (Auto) 0.100, Neut % (Auto) 62.7, Lymph % (Auto) 25.9, [place] % (Auto) 8.6, Eos % (Auto) 2.5, Baso % (Auto) 0.2, Absolute Neuts (auto) 5.1, Absolute Lymphs (auto) 2.11, Total Counted Not Reportable 04/19/18 13:20: PT 13.2, INR 1.0 04/19/18 13:20: Sodium 140, Potassium 4.4, Chloride 106, Carbon Dioxide 28.0, Anion Gap 6, BUN 6 L, Creatinine 0.62 L, Estim Creat Clear Calc 148.10, Est GFR (MDRD) Af Amer 195, Est GFR (MDRD) Non-Af 161, BUN/Creatinine Ratio 9.6 L, Glucose 95, Calcium 8.1 L, Total Bilirubin 0.30, AST 20, ALT 18, Alkaline Phosphatase 73, Total Protein 7.0, Albumin 3.3, Globulin 3.7, Albumin/Globulin Ratio 0.9, Amylase 58, Lipase 133 04/19/18 13:20: Ethyl Alcohol < 3.0 Current Medications Acetaminophen (Tylenol) 500 mg PO Q4H PRN PRN PRN Reason: Temp > 100.4 F Al Hydroxide/Mg Hydroxide (Mylanta Ii) 30 ml PO Q6H PRN PRN PRN Reason: dyspesia Last Admin: 04/20/18 04:16 Dose: 30 ml Bisacodyl (Dulcolax) 10 mg RECTAL DAILY PRN PRN Reason: Constipation Buprenorphine HCl (Buprenorphine Hcl) 4 mg SL Q8H [facility]; Taper Stop: 04/22/18 16:59 Last Admin: 04/20/18 04:16 Dose: 4 mg Chlordiazepoxide (Librium) 50 mg PO Q8H [facility]; Taper Stop: 04/22/18 14:59 Last Admin: 04/20/18 06:20 Dose: 50 mg Clonidine (Catapres) 0.1 mg PO Q2H PRN PRN PRN Reason: Hot/Cold Sweats or Anxiety Last Admin: 04/19/18 20:20 Dose: 0.1 mg Dicyclomine HCl (Bentyl) 20 mg PO Q6H PRN PRN PRN Reason: abdominal discomfort Last Admin: 04/19/18 12:32 Dose: 20 mg [facility] Hydroxyzine HCl (Vistaril Vial) 50 mg IM Q6H PRN PRN PRN Reason: Breakthrough Anxiety Hydroxyzine Pamoate (Vistaril Pamoate Capsule) 50 mg PO Q6H PRN PRN PRN Reason: Mild Anxiety (score 1/3) Last Admin: 04/20/18 04:16 Dose: 50 mg Ibuprofen (Motrin) 600 mg PO Q8H PRN PRN PRN Reason: Mild-Moderate Pain (1-5/10) Loperamide HCl (Imodium) 2 - 4 mg PO UD PRN PRN Reason: LOOSE STOOLS Lorazepam (Ativan) 1 mg IV Q4H PRN PRN PRN Reason: Severe Anxiety Lorazepam (Ativan) 2 mg IV X1 PRN PRN Reason: Seizure Methocarbamol (Methocarbamol) 750 mg PO Q6H PRN PRN PRN Reason: Muscle Aches Last Admin: 04/19/18 20:21 Dose: 750 mg Multivitamins ([facility]itamin) [facility] Last Admin: 04/19/18 17:09 Dose: 1 tablet Nicotine (Nicoderm Cq (Pbkc)) 21 mg TRANSDERM. DAILY [facility] Last Admin: 04/19/18 17:09 Dose: 21 mg Ondansetron HCl (Zofran Odt) 4 mg PO Q6H PRN PRN PRN Reason: NAUSEA Last Admin: 04/19/18 12:32 Dose: 4 mg Pramipexole Dihydrochloride (Mirapex) 0.25 mg PO Q12H PRN PRN PRN Reason: Restless Legs Last Admin: 04/19/18 20:20 Dose: 0.25 mg Senna (Senokot) 1 tablet PO QHS PRN PRN Reason: Constipation Thiamine HCl (Vitamin B1) 100 mg PO DAILYCM MICHEL Trazodone HCl (Desyrel) 50 mg PO QHS [facility] Last Admin: 04/19/18 22:18 Dose: 50 mg Medical Necessity - Tobacco Use Smoking Status: Heavy Smoker (>10/day) Tobacco Use: Cigarettes Assessment/Plan All Active Problems Left leg cellulitis (Resolved) Alcohol withdrawal delirium, acute, hyperactive (Acute) Opioid withdrawal delirium, acute, hyperactive (Acute) Polysubstance (including opioids) dependence, daily use (Acute) The patient is a 28 year old M with history of polysubstance use including chronic alcohol use, heroin IV use, methamphetamine and nicotine was directly admitted on floor through [facility] program for medical stabilization of withdrawal symptoms. Patient is having nausea, vomiting and diarrhea started about 7 PM yesterday. Patient had about 5 watery diarrhea and vomited to 3 times bilious in nature. Patient is shivering, tremors, feeling cold hot flashes. Patient ALEXANDRIA a score is 23 and CIWA score is 24. Patient drinks 1 pint of vodka daily started at the age of 10. Last use on 04/18. Uses heroin 2 g IV daily since age of 18. Last use 04/18. Methamphetamine half grams daily since age of 19 last use 2 days ago. Smokes cigarettes 1 pack daily since age of 14, last used today Patient denies history of allergy with Suboxone but says his allergic to naloxone. Denies suicidal ideation or thoughts. Patient had left thigh cellulitis complicated into abscess which needs incision and drainage last year. The patient has surgical scar and all well-healed. [] 1. Acute severe alcohol withdrawal, hyperactive with delirium with chronic alcohol use and dependence: Patient is being admitted on the regular floor. Initially patient was dehydrated and will rehydrate with IV fluid normal saline and then discontinued. IV thiamine switch to oral, IV Ativan as needed and Librium scheduled. On CIWA scale monitoring. Monitor intake and output. Folic acid and multivitamin. Labs reviewed. CBC within normal limit. CMP low BUN/creatinine mostly sec ondary to low muscle mass. LFTs within normal limit. UA within normal limit. U tox positive of opioids. Alcohol negative 2. Acute opioid/heroin withdrawal with history of opioid use and dependence: On CINA scale monitoring. On Librium and buprenorphine taper. On medications as per [facility] protocol to control the withdrawal symptoms. 3. Left small axillary abscess secondary to MRSA with, left axillary lymphadenopathy: Started on IV vancomycin. Wound care nurse. I think abscess small and probably will not need drainage but will follow. If needed, can consult Dr. Pack. Patient started on decontamination with chlorhexidine and Bactroban nasal ointment. Left posterior neck is With surrounding MRSA cellulitis: Methamphetamine use: General symptom management. Counseling done. 4. Nicotine use and dependence with cigarettes: On nicotine patch. DVT prophylaxis: Low risk; early ambulation encouraged. Laboratory Results 04/19/18 13:05: Urine Color Yellow, Urine Clarity Clear, Urine pH 8.0, Ur Specific Zwingle 1.010, Urine Protein Negative, Urine Glucose (UA) Normal, Urine Ketones Negative, Urine Occult Blood Negative, Urine Nitrite Negative, Urine Bilirubin Negative, Urine Urobilinogen Normal, Ur Leukocyte Esterase Negative, Urine RBC 0 SEEN, Urine WBC 0 SEEN, Ur Squamous Epith Cells 0 SEEN, Urine Bacteria 0 SEEN, Urine Mucus 0 SEEN 04/20/18 12:25: MRSA (PCR) Pending Code Visit Inpatient E&M: 58286 [facility] Hosp L3
[2018-04-20] MEDS: Folic Acid 1 MG Tablet PO (11:58)
[2018-04-20] MEDS: Multivitamins,Therapeutic Tablet 1 TABLET PO (11:58)
[2018-04-20] MEDS: Thiamine Hydrochloride 100 MG Tablet PO (11:58)
[2018-04-20] MEDS: Pramipexole Di-HCl 0.25 MG Tablet PO (12:04)
[2018-04-20] MEDS: Ibuprofen 600 MG Tablet PO (12:04)
--- NOTE | 2018-04-20 12:51 | NURSING ---
PT RESTING QUIETLY IN BED, EYES CLOSED, RESP EASY
[2018-04-20 14:30] LABS: M R Staph aureus DNA By PCR POSITIVE (Negative); Probe Check PASS
--- NOTE | 2018-04-20 15:18 | PCM.RX.CS ---
Consult Pharmacy has been consulted to manage selected antiobiotic: Vancomycin Type of Consult: New start Suspected Infection: Other Labs: Sodium 140 mmol/L (136-145) 04/19/18 13:20 Potassium 4.4 mmol/L (3.5-5.1) 04/19/18 13:20 Chloride 106 mmol/L (98-107) 04/19/18 13:20 Carbon Dioxide 28.0 mmol/L (21.0-32.0) 04/19/18 13:20 Anion Gap 6 (5-15) 04/19/18 13:20 BUN 6 mg/dL (7-18) L 04/19/18 13:20 Creatinine 0.62 mg/dL (0.70-1.30) L 04/19/18 13:20 Est GFR (MDRD) Af Amer 195 mL/min (>60) 04/19/18 13:20 Est GFR (MDRD) Non-Af 161 mL/min (>60) 04/19/18 13:20 BUN/Creatinine Ratio 9.6 RATIO (10-20) L 04/19/18 13:20 Glucose 95 mg/dL (74-106) 04/19/18 13:20 Weight used for dosin kg Estimated Creatinine Clearance: > 100 Goal Trough: 10-15 mcg/mL Pharmacy Plan for Drug Dosing: Got an order from Dr Davenport to start vancomycin 1g IV q8 (without using the protocol initially) with a trough prior to the 5th dose. After initial level, refer to the protocol for adjustments. Pharmacy Service will continue to monitor and adjust dosing as required. Follow-Up Labs: Trough Vancomycin - 04/21 @ 2200
[2018-04-20] MEDS: Vancomycin IV 1,000 MG/200 ML BAG 200 MG IV ×2 (15:55→21:14)
--- NOTE | 2018-04-20 16:59 | CHAPLAIN ---
Type of Pastoral Visit _x__ Initial Visit ___ Follow-up Visit ___ On-call Visit ___ General Patient Visit ___ Spiritual Assessment ___ Family Conference ___ Bereavement ___ Rapid Response ___ Code Blue ___ Other (describe below) Pastoral Care Referral From _x__ Patient ___ Family ___ Nurse ___ Physician ___ Core Inspector ___ Equipment Sterilizer ___ Other (describe below) Sacrament/Intervention _x__ Active listening ___ Anointing ___ Restoration ___ Bereavement ___ Communion _x__ Kathrin exploration ___ _x__ Life review _x__ Prayer ___ Reconciliation ___ Sacrament of Sick _x__ Supportive presence ___ Wedding ___ Other (describe below) Pastoral Comments
[2018-04-20] MEDS: Mupirocin Ointment 22gm Tube 1 APPLIC NASAL ×2 (17:22→21:15)
[2018-04-20] MEDS: cloNIDine HCl 0.1 MG Tablet PO (17:29)
[2018-04-20] MEDS: traZODone 50 MG Tablet PO (21:14)
[2018-04-20] MEDS: QUEtiapine 25 MG Tablet PO (22:30)
[2018-04-21] MEDS: Mag Hydrox/Al Hydrox/Simeth 30 ML UDC PO (00:54)
[2018-04-21 03:18] VITALS: BP 112/53; PULSE 76; RESP 18; TEMP 36.9
[2018-04-21] MEDS: Vancomycin IV 1,000 MG/200 ML BAG 200 MG IV ×3 (05:30→22:13)
[2018-04-21] MEDS: hydrOXYzine PAM 25 MG Capsule 50 MG PO ×2 (05:30→17:25)
[2018-04-21] MEDS: Buprenorphine HCl 2 MG TAB.SUBL SL ×2 (05:30→17:17)
[2018-04-21] MEDS: chlordiazePOXIDE 25 MG Capsule PO ×2 (06:37→17:17)
[2018-04-21] MEDS: Folic Acid 1 MG Tablet PO (08:48)
[2018-04-21] MEDS: Thiamine Hydrochloride 100 MG Tablet PO (08:48)
[2018-04-21] MEDS: CHLORHEXIDINE GLUC 2% CLOTH 1 EACH TOWELETTE TOPICAL (08:48)
[2018-04-21] MEDS: Mupirocin Ointment 22gm Tube 1 APPLIC NASAL ×2 (08:48→22:14)
[2018-04-21] MEDS: QUEtiapine 25 MG Tablet PO ×2 (08:49→17:25)
[2018-04-21] MEDS: cloNIDine HCl 0.1 MG Tablet PO ×2 (08:49→17:25)
[2018-04-21] MEDS: Pramipexole Di-HCl 0.25 MG Tablet PO (08:49)
[2018-04-21 08:53] VITALS: BP 104/62; PULSE 71; RESP 18; TEMP 36.6
--- NOTE | 2018-04-21 11:31 | NURSING ---
CREOSOTING ENGINEER came to this nurse with concerns of pt's behavior, states change in behavior from this a.m. Discussed this concern with primary RN and CREOSOTING ENGINEER. RN to evaluate patient.
[2018-04-21 11:36] VITALS: BP 103/49; PULSE 79; RESP 16; TEMP 36.6
--- NOTE | 2018-04-21 11:38 | NURSING ---
Dr. Davenport updated on concern regarding pt's behavior and mentation following female visitor being here. Dr. Davenport requesting we inform [facility] and asking that the door to the room stay open, and discussed if we could limit visitors- again instructed to talk with [facility] regarding this. Dr. Davenport was informed, pt is already on the camera as had been placed on it by previous shift following concern or incident yesterday of female visitor being here and concern that pt may have taken an unknown substance. Discussed need for IV, unable to dc at this time as requiring IV vanco.
--- NOTE | 2018-04-21 11:44 | NURSING ---
left message for [facility]
[2018-04-21 13:15] LABS: M R Staph aureus DNA By PCR POSITIVE (Negative); Probe Check PASS; Staph aureus DNA By PCR POSITIVE (Negative)
--- NOTE | 2018-04-21 13:17 | PCM.PN.HOSP ---
Patient Problems: Active and Suspected Problems Alcohol withdrawal delirium, acute, hyperactive (Acute) Opioid withdrawal delirium, acute, hyperactive (Acute) Polysubstance (including opioids) dependence, daily use (Acute) Subjective: Patient left axillary swelling got little bigger, painful and tender she is also speaking history. Right neck swelling is also tender and swollen. The patient was started on IV vancomycin yesterday. No fever or chills. Bedside small I&D was done and both left axillary abscess and right posterior triangle neck cellulitis with abscess Vitals/I&O's: Vital Signs Temp Pulse Resp BP Pulse Ox 97.8 F 79 16 103/49 L 98 04/21/18 11:36 04/21/18 11:36 04/21/18 11:36 04/21/18 11:36 04/20/18 17:20 Oxygen Delivery Method Room Air Weight: 132 lb 8 oz Body Mass Index (BMI) 22.0 Intake and Output for Last 24 Hours 04/19/18 04/20/18 04/21/18 23:59 23:59 23:59 Intake Total 1981 970 / 970 700 / 700 Balance 1981 970 / 970 700 / 700 General: Alert, Oriented x3, Cooperative HEENT: Atraumatic, PERRLA, EOMI, Normocephalic Oral: Moist Mucosa Neck: Supple, No JVD, Negative Carotid Bruits Lungs: Clear to auscultation, Normal air movement, No rhonchi Cardiovascular: Regular rate, No murmurs Abdomen: Bowel Sounds Present, Soft, Non Tender Extremities: No edema, Capillary Refill Less than 3 Seconds Skin: Ulcer/ Wound - Indurated swelling with tenderness, localized pus suggestive of abscess and surrounding cellulitis on the posterior aspect of right neck and left axillary follicular abscess Left posterior triangle lymphadenopathy. Scar dougie of previous incision and drainage of abscess in the left posterior aspect of thigh, Rash Present - Localized erythematous rash capsulitis present around the wound Musculoskeletal: No Tenderness to Palpation of Joints or Extremities Neurological: Cranial nerves II-XII grossly intact Psych/Mental Status: Normal Affect, Appropriate Laboratory Results 04/20/18 12:25: MRSA (PCR) POSITIVE H 04/21/18 11:15: S.aureus Protein A PCR POSITIVE H, MRSA (PCR) POSITIVE H Current Medications Acetaminophen (Tylenol) 500 mg PO Q4H PRN PRN PRN Reason: Temp > 100.4 F Al Hydroxide/Mg Hydroxide (Mylanta Ii) 30 ml PO Q6H PRN PRN PRN Reason: dyspesia Last Admin: 04/21/18 00:54 Dose: 30 ml Bisacodyl (Dulcolax) 10 mg RECTAL DAILY PRN PRN Reason: Constipation Buprenorphine HCl (Buprenorphine Hcl) 2 mg SL Q12H MICHEL; Taper Stop: 04/22/18 16:59 Last Admin: 04/21/18 05:30 Dose: 2 mg Chlordiazepoxide (Librium) 50 mg PO Q8H MICHEL; Taper Stop: 04/22/18 14:59 Last Admin: 04/21/18 06:37 Dose: 50 mg Chlorhexidine Gluconate () 1 each TOPICAL DAILY [facility] Last Admin: 04/21/18 08:48 Dose: 1 each Clonidine (Catapres) 0.1 mg PO Q2H PRN PRN PRN Reason: Hot/Cold Sweats or Anxiety Last Admin: 04/21/18 08:49 Dose: 0.1 mg Dicyclomine HCl (Bentyl) 20 mg PO Q6H PRN PRN PRN Reason: abdominal discomfort Last Admin: 04/19/18 12:32 Dose: 20 mg Folic Acid (Folic Acid) 1 mg PO DAILYCM [facility] Last Admin: 04/21/18 08:48 Dose: 1 mg Hydroxyzine HCl (Vistaril Vial) 50 mg IM Q6H PRN PRN PRN Reason: Breakthrough Anxiety Hydroxyzine Pamoate (Vistaril Pamoate Capsule) 50 mg PO Q6H PRN PRN PRN Reason: Mild Anxiety (score 1/3) Last Admin: 04/21/18 05:30 Dose: 50 mg Vancomycin IV Pharmacy to Dose (1 ea/ Sodium Chloride) 500 mls @ 250 mls/hr IV PRN MICHEL; Protocol Vancomycin HCl (Vancomycin) 1,000 mg in 200 mls @ 200 mls/hr IV Q8H MICHEL Last Admin: 04/21/18 05:30 Dose: 200 mls/hr Ibuprofen (Motrin) 600 mg PO Q8H PRN PRN PRN Reason: Mild-Moderate Pain (1-5/10) Last Admin: 04/20/18 12:04 Dose: 600 mg Loperamide HCl (Imodium) 2 - 4 mg PO UD PRN PRN Reason: LOOSE STOOLS Lorazepam (Ativan) 1 mg IV Q4H PRN PRN PRN Reason: Severe Anxiety Lorazepam (Ativan) 2 mg IV X1 PRN PRN Reason: Seizure Methocarbamol (Methocarbamol) 750 mg PO Q6H PRN PRN PRN Reason: Muscle Aches Last Admin: 04/19/18 20:21 Dose: 750 mg [facility]ivit[facility] ([facility]itamin) [address] [facility] Last Admin: 04/20/18 11:58 Dose: 1 tablet Mupirocin (Bactroban) 1 applic NASAL BID [facility]; Protocol Stop: 04/24/18 22:01 Last Admin: 04/21/18 08:48 Dose: 1 applicatio Nicotine (Nicoderm Cq (Pbkc)) 21 mg TRANSDERM. DAILY [facility] Last Admin: 04/21/18 08:49 Dose: 21 mg Ondansetron HCl (Zofran Odt) 4 mg PO Q6H PRN PRN PRN Reason: NAUSEA Last Admin: 04/19/18 12:32 Dose: 4 mg Pramipexole Dihydrochloride (Mirapex) 0.25 mg PO Q12H PRN PRN PRN Reason: Restless Legs Last Admin: 04/21/18 08:49 Dose: 0.25 mg Quetiapine Fumarate (Seroquel) 25 mg PO Q6H PRN PRN PRN Reason: agitation, anxiety, insomnia Last Admin: 04/21/18 08:49 Dose: 25 mg Senna (Senokot) 1 tablet PO QHS PRN PRN Reason: Constipation Thiamine HCl (Vitamin B1) [address] [facility] Last Admin: 04/21/18 08:48 Dose: 100 mg Trazodone HCl (Desyrel) 50 mg PO QHS [facility] Last Admin: 04/20/18 21:14 Dose: 50 mg Medical Necessity - Tobacco Use Smoking Status: Heavy Smoker (>10/day) Tobacco Use: Cigarettes Assessment/Plan All Active Problems Left leg cellulitis (Resolved) Alcohol withdrawal delirium, acute, hyperactive (Acute) Opioid withdrawal delirium, acute, hyperactive (Acute) Polysubstance (including opioids) dependence, daily use (Acute) The patient is a 28 year old M with history of polysubstance use including chronic alcohol use, heroin IV use, methamphetamine and nicotine was directly admitted on floor through [facility] program for medical stabilization of withdrawal symptoms. Patient is having nausea, vomiting and diarrhea started about 7 PM yesterday. Patient had about 5 watery diarrhea and vomited to 3 times bilious in nature. Patient is shivering, tremors, feeling cold hot flashes. Patient ALEX[place]RIA a score is 23 and CIWA score is 24. Patient drinks 1 pint of vodka daily started at the age of 10. Last use on 04/18. Uses heroin 2 g IV daily since age of 18. Last use 04/18. Methamphetamine half grams daily since age of 19 last use 2 days ago. Smokes cigarettes 1 pack daily since age of 14, last used today Patient denies history of allergy with Suboxone but says his allergic to naloxone. Denies suicidal ideation or thoughts. Patient had left thigh cellulitis complicated into abscess which needs incision and drainage last year. The patient has surgical scar and all well-healed. [] 1. Left small axillary lingular abscess secondary to MRSA with, left axillary lymphadenopathy, right posterior triangle small indurated abscess with posterior triangle lymphadenopathy with surrounding MRSA cellulitis: Local bedside small I&D was done at both sites of left axilla and posterior side of neck. Local procedure was assisted by Wound care nurse, Keyla. The patient is already started on IV vancomycin. Patient started on decontamination with chlorhexidine and Bactroban nasal ointment. Dose of vancomycin discussed with the pharmacist. 2. Acute severe alcohol withdrawal, hyperactive with delirium with chronic alcohol use and dependence: Patient is being admitted on the regular floor. Initially patient was dehydrated and will rehydrate with IV fluid normal saline and then discontinued. IV thiamine switch to oral, IV Ativan as needed and Librium scheduled. On CIWA scale monitoring. Monitor intake and output. Folic acid and multivitamin. Labs reviewed. CBC within normal limit. CMP low BUN/creatinine mostly secondary to low muscle mass. LFTs within normal limit. UA within normal limit. U tox positive of opioids. Alcohol negative 3. Acute opioid/heroin withdrawal with history of opioid use and dependence: On CINA scale monitoring. On Librium and buprenorphine taper. On medications as per [facility] protocol to control the withdrawal symptoms. 4 Methamphetamine use: General symptom management. Counseling done. 5. Nicotine use and dependence with cigarettes: On nicotine patch. DVT prophylaxis: Low risk; early ambulation encouraged. Laboratory Results 04/19/18 13:05: Urine Color Yellow, Urine Clarity Clear, Urine pH 8.0, Ur Specific [place] 1.010, Urine Protein Negative, Urine Glucose (UA) Normal, Urine Ketones Negative, Urine Occult Blood Negative, Urine Nitrite Negative, Urine Bilirubin Negative, Urine Urobilinogen Normal, Ur Leukocyte Esterase Negative, Urine RBC 0 SEEN, Urine WBC 0 SEEN, Ur Squamous Epith Cells 0 SEEN, Urine Bacteria 0 SEEN, Urine Mucus 0 SEEN 04/20/18 12:25: MRSA (PCR) Pending Code Visit Inpatient E&M: 84617 Subs Hosp L3
--- NOTE | 2018-04-21 13:23 | PN_ITS ---
Patient Problems: Active and Suspected Problems Alcohol withdrawal delirium, acute, hyperactive (Acute) Opioid withdrawal delirium, acute, hyperactive (Acute) Polysubstance (including opioids) dependence, daily use (Acute) Subjective: Patient left axillary swelling got little bigger, painful and tender she is also speaking history. Right neck swelling is also tender and swollen. The patient was started on IV vancomycin yesterday. No fever or chills. Bedside small I&D was done and both left axillary abscess and right posterior triangle neck cellulitis with abscess Vitals/I&O's: Vital Signs Temp Pulse Resp BP Pulse Ox 97.8 F 79 16 103/49 L 98 04/21/18 11:36 04/21/18 11:36 04/21/18 11:36 04/21/18 11:36 04/20/18 17:20 Oxygen Delivery Method Room Air Weight: 132 lb 8 oz Body Mass Index (BMI) 22.0 Intake and Output for Last 24 Hours 04/19/18 04/20/18 04/21/18 23:59 23:59 23:59 Intake Total 1981 970 / 970 700 / 700 Balance 1981 970 / 970 700 / 700 General: Alert, Oriented x3, Cooperative HEENT: Atraumatic, PERRLA, EOMI, Normocephalic Oral: Moist Mucosa Neck: Supple, No JVD, Negative Carotid Bruits Lungs: Clear to auscultation, Normal air movement, No rhonchi Cardiovascular: Regular rate, No murmurs Abdomen: Bowel Sounds Present, Soft, Non Tender Extremities: No edema, Capillary Refill Less than 3 Seconds Skin: Ulcer/ Wound - Indurated swelling with tenderness, localized pus suggestive of abscess and surrounding cellulitis on the posterior aspect of right neck and left axillary follicular abscess Left posterior triangle lymphadenopathy. Scar dougie of previous incision and drainage of abscess in the left posterior aspect of thigh, Rash Present - Localized erythematous rash capsulitis present around the wound Musculoskeletal: No Tenderness to Palpation of Joints or Extremities Neurological: Cranial nerves II-XII grossly intact Psych/Mental Status: Normal Affect, Appropriate Laboratory Results 04/20/18 12:25: MRSA (PCR) POSITIVE H 04/21/18 11:15: S.aureus Protein A PCR POSITIVE H, MRSA (PCR) POSITIVE H Current Medications Acetaminophen (Tylenol) 500 mg PO Q4H PRN PRN PRN Reason: Temp > 100.4 F Al Hydroxide/Mg Hydroxide (Mylanta Ii) 30 ml PO Q6H PRN PRN PRN Reason: dyspesia Last Admin: 04/21/18 00:54 Dose: 30 ml Bisacodyl (Dulcolax) 10 mg RECTAL DAILY PRN PRN Reason: Constipation Buprenorphine HCl (Buprenorphine Hcl) 2 mg SL Q12H MICHEL; Taper Stop: 04/22/18 16:59 Last Admin: 04/21/18 05:30 Dose: 2 mg Chlordiazepoxide (Librium) 50 mg PO Q8H MICHEL; Taper Stop: 04/22/18 14:59 Last Admin: 04/21/18 06:37 Dose: 50 mg Chlorhexidine Gluconate () 1 each TOPICAL DAILY [facility]HEL Last Admin: 04/21/18 08:48 Dose: 1 each Clonidine (Catapres) 0.1 mg PO Q2H PRN PRN PRN Reason: Hot/Cold Sweats or Anxiety Last Admin: 04/21/18 08:49 Dose: 0.1 mg Dicyclomine HCl (Bentyl) 20 mg PO Q6H PRN PRN PRN Reason: abdominal discomfort Last Admin: 04/19/18 12:32 Dose: 20 mg Folic Acid (Folic Acid) 1 mg PO DAILYCM MICHEL Last Admin: 04/21/18 08:48 Dose: 1 mg Hydroxyzine HCl (Vistaril Vial) 50 mg IM Q6H PRN PRN PRN Reason: Breakthrough Anxiety Hydroxyzine Pamoate (Vistaril Pamoate Capsule) 50 mg PO Q6H PRN PRN PRN Reason: Mild Anxiety (score 1/3) Last Admin: 04/21/18 05:30 Dose: 50 mg Vancomycin IV Pharmacy to Dose (1 ea/ Sodium Chloride) 500 mls @ 250 mls/hr IV PRN MICHEL; Protocol Vancomycin HCl (Vancomycin) 1,000 mg in 200 mls @ 200 mls/hr IV Q8H [facility]HEL Last Admin: 04/21/18 05:30 Dose: 200 mls/hr Ibuprofen (Motrin) 600 mg PO Q8H PRN PRN PRN Reason: Mild-Moderate Pain (1-5/10) Last Admin: 04/20/18 12:04 Dose: 600 mg Loperamide HCl (Imodium) 2 - 4 mg PO UD PRN PRN Reason: LOOSE STOOLS Lorazepam (Ativan) 1 mg IV Q4H PRN PRN PRN Reason: Severe Anxiety Lorazepam (Ativan) 2 mg IV X1 PRN PRN Reason: Seizure Methocarbamol (Methocarbamol) 750 mg PO Q6H PRN PRN PRN Reason: Muscle Aches Last Admin: 04/19/18 20:21 Dose: 750 mg [facility]) [facility] Last Admin: 04/20/18 11:58 Dose: 1 tablet Mupirocin (Bactroban) 1 applic NASAL BID [facility]; Protocol Stop: 04/24/18 22:01 Last Admin: 04/21/18 08:48 Dose: 1 applicatio Nicotine (Nicoderm Cq (Pbkc)) 21 mg TRANSDERM. DAILY [facility] Last Admin: 04/21/18 08:49 Dose: 21 mg Ondansetron HCl (Zofran Odt) 4 mg PO Q6H PRN PRN PRN Reason: NAUSEA Last Admin: 04/19/18 12:32 Dose: 4 mg Pramipexole Dihydrochloride (Mirapex) 0.25 mg PO Q12H PRN PRN PRN Reason: Restless Legs Last Admin: 04/21/18 08:49 Dose: 0.25 mg Quetiapine Fumarate (Seroquel) 25 mg PO Q6H PRN PRN PRN Reason: agitation, anxiety, insomnia Last Admin: 04/21/18 08:49 Dose: 25 mg Senna (Senokot) 1 tablet PO QHS PRN PRN Reason: Constipation Thiamine HCl ([facility]itamin B1) [facility] Last Admin: 04/21/18 08:48 Dose: 100 mg Trazodone HCl (Desyrel) 50 mg PO QHS [facility] Last Admin: 04/20/18 21:14 Dose: 50 mg Medical Necessity - Tobacco Use Smoking Status: Heavy Smoker (>10/day) Tobacco Use: Cigarettes Assessment/Plan All Active Problems Left leg cellulitis (Resolved) Alcohol withdrawal delirium, acute, hyperactive (Acute) Opioid withdrawal delirium, acute, hyperactive (Acute) Polysubstance (including opioids) dependence, daily use (Acute) The patient is a 28 year old M with history of polysubstance use including chronic alcohol use, heroin IV use, methamphetamine and nicotine was directly admitted on floor through [facility] program for medical stabilization of withdrawal symptoms. Patient is having nausea, vomiting and diarrhea started about 7 PM yesterday. Patient had about 5 watery diarrhea and vomited to 3 times bilious in nature. Patient is shivering, tremors, feeling cold hot flashes. Patient [place] a score is 23 and CIWA score is 24. Patient drinks 1 pint of vodka daily started at the age of 10. Last use on 04/18. Uses heroin 2 g IV daily since age of 18. Last use 04/18. Methamphetamine half grams daily since age of 19 last use 2 days ago. Smokes cigarettes 1 pack daily since age of 14, last used today Patient denies history of allergy with Suboxone but says his allergic to naloxone. Denies suicidal ideation or thoughts. Patient had left thigh cellulitis complicated into abscess which needs incision and drainage last year. The patient has surgical scar and all well-healed. [] 1. Left small axillary lingular abscess secondary to MRSA with, left axillary lymphadenopathy, right posterior triangle small indurated abscess with posterior triangle lymphadenopathy with surrounding MRSA cellulitis: Local bedside small I&D was done at both sites of left axilla and posterior side of neck. Local procedure was assisted by Wound care nurse, Keyla. The patient is already started on IV vancomycin. Patient started on decontamination with chlorhexidine and Bactroban nasal ointment. Dose of vancomycin discussed with the pharmacist. 2. Acute severe alcohol withdrawal, hyperactive with delirium with chronic alcohol use and dependence: Patient is being admitted on the regular floor. Initially patient was dehydrated and will rehydrate with IV fluid normal saline and then discontinued. IV thiamine switch to oral, IV Ativan as needed and Librium scheduled. On CIWA scale monitoring. Monitor intake and output. Folic acid and multivitamin. Labs reviewed. CBC within normal limit. CMP low BUN/creatinine mostly secondary to low muscle mass. LFTs within normal limit. UA within normal limit. U tox positive of opioids. Alcohol negative 3. Acute opioid/heroin withdrawal with history of opioid use and dependence: On CINA scale monitoring. On Librium and buprenorphine taper. On medications as per [facility] protocol to control the withdrawal symptoms. 4 Methamphetamine use: General symptom management. Counseling done. 5. Nicotine use and dependence with cigarettes: On nicotine patch. DVT prophylaxis: Low risk; early ambulation encouraged. Laboratory Results 04/19/18 13:05: Urine Color Yellow, Urine Clarity Clear, Urine pH 8.0, Ur Specific [place] 1.010, Urine Protein Negative, Urine Glucose (UA) Normal, Urine Ketones Negative, Urine Occult Blood Negative, Urine Nitrite Negative, Urine Bilirubin Negative, Urine Urobilinogen Normal, Ur Leukocyte Esterase Negative, Urine RBC 0 SEEN, Urine WBC 0 SEEN, Ur Squamous Epith Cells 0 SEEN, Urine Bacteria 0 SEEN, Urine Mucus 0 SEEN 04/20/18 12:25: MRSA (PCR) Pending Code Visit Inpatient E&M: 54102 Subs Hosp L3
--- NOTE | 2018-04-21 13:27 | PCM.OP.BLANK ---
Problem List (1) Alcohol withdrawal delirium, acute, hyperactive Status: Acute (2) Opioid withdrawal delirium, acute, hyperactive Status: Acute (3) Polysubstance (including opioids) dependence, daily use Status: Acute (4) Left leg cellulitis Status: Resolved (5) Adderall use disorder, mild, abuse Status: Chronic (6) Heroin abuse Status: Chronic (7) IV drug user Status: Chronic (8) Methamphetamine abuse Status: Chronic (9) Tobacco use Status: Chronic (10) Abscess of left axilla Status: Acute (11) Abscess of skin of neck Status: Acute Comment: Posterior triangle of neck Operative Report Date of Procedure: 04/21/18 Under aseptic technique, left axillary region and right side of neck was cleaned and draped. Bedside small stab incision was given. Small amount of purulent and sanguinous discharge drained from left axillary region. Small stab incision was given on the right posterior triangle of neck and mainly infected/necrotic bloody discharge drained. Dressing was done by wound care nurse Keyla. Patient tolerated the procedure well. Code Visit Procedures: 21497 Drain Skin Abscess
--- NOTE | 2018-04-21 15:32 | CHAPLAIN ---
Type of Pastoral Visit ___ Initial Visit _x__ Follow-up Visit ___ On-call Visit ___ General Patient Visit ___ Spiritual Assessment ___ Family Conference ___ Bereavement ___ Rapid Response ___ Code Blue ___ Other (describe below) Pastoral Care Referral From _x__ Patient ___ Family ___ Nurse ___ Physician ___ Rail Detector Car Operator ___ Gynecological Assistant ___ Other (describe below) Sacrament/Intervention _x__ Active listening ___ Anointing ___ Adventist ___ Bereavement ___ Communion ___ Kathrin exploration ___ _x__ Life review _x__ Prayer ___ Reconciliation ___ Sacrament of Sick _x__ Supportive presence ___ Wedding ___ Other (describe below) Pastoral Comments patient says that and children came to visit today; pt makes a comment that he told God will not give you more than you can handle; asked pt if he believed that for himself which created an opening for a spiritual conversation; pt welcomes visit and prayer;
[2018-04-21] MEDS: Methocarbamol 750 MG Tablet PO (17:25)
[2018-04-21 17:27] VITALS: BP 106/53; PULSE 88; RESP 16; TEMP 36.4
[2018-04-21 22:03] VITALS: BP 110/55; PULSE 75; RESP 18; TEMP 36.8
[2018-04-21] MEDS: traZODone 50 MG Tablet PO (22:13)
[2018-04-21] MEDS: Ibuprofen 600 MG Tablet PO (22:17)
[2018-04-21 22:25] LABS: Anion Gap 4 (5-15); BUN 13 mg/dL (7-18); BUN/Creat Ratio 17.9 RATIO (10-20); Calcium,Total 8.3 mg/dL (8.5-10.1); Chloride 104 mmol/L (98-107); Creatinine, Serum 0.73 mg/dL (0.70-1.30); EST Glomerular Filtration Rate 135 mL/min (>60); Est Glom Filt Rate - Afr Amer 163 mL/min (>60); Estimated Creatinine Clearance 125.78 ml/min; Glucose 109 mg/dL (74-106); Potassium 4.1 mmol/L (3.5-5.1); Sodium Level 138 mmol/L (136-145)
[2018-04-21 22:39] LABS: Vancomycin, Trough Level 18.5 ug/mL (5.0-15.0)
[2018-04-22] MEDS: QUEtiapine 25 MG Tablet PO ×2 (00:10→09:07)
[2018-04-22] MEDS: Methocarbamol 750 MG Tablet PO ×2 (00:10→11:38)
--- NOTE | 2018-04-22 01:50 | PCM.RX.CS ---
Consult Pharmacy has been consulted to manage selected antiobiotic: Vancomycin Type of Consult: Follow-up Suspected Infection: Skin/Soft tissue Labs: Sodium 138 mmol/L (136-145) 04/21/18 21:50 Potassium 4.1 mmol/L (3.5-5.1) 04/21/18 21:50 Chloride 104 mmol/L (98-107) 04/21/18 21:50 Carbon Dioxide 30.0 mmol/L (21.0-32.0) 04/21/18 21:50 Anion Gap 4 (5-15) L 04/21/18 21:50 BUN 13 mg/dL (7-18) 04/21/18 21:50 Creatinine 0.73 mg/dL (0.70-1.30) 04/21/18 21:50 Est GFR (MDRD) Af Amer 163 mL/min (>60) 04/21/18 21:50 Est GFR (MDRD) Non-Af 135 mL/min (>60) 04/21/18 21:50 BUN/Creatinine Ratio 17.9 RATIO (10-20) 04/21/18 21:50 Glucose 109 mg/dL (74-106) H 04/21/18 21:50 Vancomycin Trough 18.5 ug/mL (5.0-15.0) H 04/21/18 21:50 Goal Trough: 10-15 mcg/mL Pharmacy Plan for Drug Dosing: Pharmacy Service will continue to monitor and adjust dosing as required. DOSE SCHEDULED AT 1400 WAS GIVEN 2 HOURS LATE, TROUGH WAS 18.5, RESCHEDULED VANCO TROUGH FOR 04/22 AT 1600 Follow-Up Labs: Trough Vancomycin Labs to be done on [date and time ordered]: 04/22 @ 1600
[2018-04-22 03:18] VITALS: BP 94/43; PULSE 68; RESP 18; TEMP 36.4
[2018-04-22] MEDS: chlordiazePOXIDE 25 MG Capsule PO (03:23)
[2018-04-22] MEDS: Vancomycin IV 1,000 MG/200 ML BAG 200 MG IV (05:09)
[2018-04-22] MEDS: Buprenorphine HCl 2 MG TAB.SUBL SL (05:10)
--- NOTE | 2018-04-22 07:30 | DCINST_ITS ---
- Discharge Diagnoses Current Active Problems: Current Active and Chronic Problems Alcohol withdrawal delirium, acute, hyperactive (Acute) Opioid withdrawal delirium, acute, hyperactive (Acute) Polysubstance (including opioids) dependence, daily use (Acute) Abscess of left axilla (Acute) Abscess of skin of neck (Acute) Posterior triangle of neck You will use the following diet at home:: Regular Discharge Activity: May Not Drive Weight Bearing Status: Weight bearing as tolerated Call your doctor if you observe: Fever of 101 or Higher, Inability to have a bowel movement, Shortness of breath, Dizziness, Fainting spells, Swelling in the ankles, Chest pain Additional Instructions: F/U [facility] Allergies/Adverse Reactions: Allergies buprenorphine [From Suboxone] Allergy (Verified 04/17/18 05:23) Other naloxone [From Suboxone] Allergy (Verified 04/17/18 05:23) Other Medications to take at Discharge Chlorhexidine Gluconate [Antiseptic Skin Cleanser] 237 ml TP DAILY #2 bottle 04/22/18 Folic Acid 1 mg PO DAILYCM tablet 04/22/18 Mupirocin Calcium [Bactroban Nasal] 1 gm NS BID #1 oint...g. 04/22/18 Sulfamethoxazole/Trimethoprim [Bactrim Ds Tablet] 1 ea PO BID #28 tab 04/22/18 Thiamine Hydrochloride [Vitamin B1] 100 mg PO DAILYCM tablet 04/22/18 The following prescriptions were given: Chlorhexidine Gluconate [Antiseptic Skin Cleanser] 237 ml TP DAILY #2 bottle Mupirocin Calcium [Bactroban Nasal] 1 gm NS BID #1 oint...g. Sulfamethoxazole/Trimethoprim [Bactrim Ds Tablet] 1 ea PO BID #28 tab Primary Care Physician: Care Physician,No Primary [Primary Care Provider] - Please follow up with your Primary Care Physician in: in 1-2 weeks Test Results: Test results from this visit will be discussed in further detail at your follow- up appointment, if applicable. Please Follow Up With: Lonnie Brown MD When: in 1-2 weeks for MRSA wound/cellulitis
--- NOTE | 2018-04-22 07:30 | DS.PCM_ITS ---
Discharge Date and Diagnosis - Problem List Patient Problems: Active and Suspected Problems Alcohol withdrawal delirium, acute, hyperactive (Acute) Opioid withdrawal delirium, acute, hyperactive (Acute) Polysubstance (including opioids) dependence, daily use (Acute) Abscess of left axilla (Acute) Abscess of skin of neck (Acute) Posterior triangle of neck Date of Admission: 04/19/18 Date of Discharge: 04/22/18 - Primary Discharge Diagnosis Active and Suspected Problems Alcohol withdrawal delirium, acute, hyperactive (Acute) Opioid withdrawal delirium, acute, hyperactive (Acute) Polysubstance (including opioids) dependence, daily use (Acute) Abscess of left axilla (Acute) Abscess of skin of neck (Acute) Posterior triangle of neck Left small axillary lingular abscess secondary to MRSA with, left axillary lymphadenopathy, right posterior triangle small indurated abscess with posterior triangle lymphadenopathy with surrounding MRSA cellulitis; present on admission - Secondary Discharge Diagnosis Chronic Problems Tobacco use (Chronic) IV drug user (Chronic) Heroin abuse (Chronic) Methamphetamine abuse (Chronic) Adderall use disorder, mild, abuse (Chronic) Hospital Course and Treatment Consultations 04/20/18 14:49 Consult: Onc/Wound/machine printer Routine Comment: dressing Reason for Consult:: MRSA small abscess in left axillary region Comments:: and right post neck Operations: None Summary of Care Provided: [] The patient is a 28 year old M with history of polysubstance use including chronic alcohol use, heroin IV use, methamphetamine and nicotine was directly admitted on floor through [facility] for medical stabilization of withdrawal symptoms. Patient is having nausea, vomiting and diarrhea started about 7 PM yesterday. Patient had about 5 watery diarrhea and vomited to 3 times bilious in nature. Patient is shivering, tremors, feeling cold hot flashes. Patient A[place] a score is 23 and CIWA score is 24. Patient drinks 1 pint of vodka daily started at the age of 10. Last use on 04/18. Uses heroin 2 g IV daily since age of 18. Last use 04/18. Methamphetamine half grams daily since age of 19 last use 2 days ago. Smokes cigarettes 1 pack daily since age of 14, last used today Patient denies history of allergy with Suboxone but says his allergic to naloxone. Denies suicidal ideation or thoughts. Patient had left thigh cellulitis complicated into abscess which needs incision and drainage last year. The patient has surgical scar and all well-healed. [] 1. Left small axillary lingular abscess secondary to MRSA with, left axillary lymphadenopathy, right posterior triangle small indurated abscess with posterior triangle lymphadenopathy with surrounding MRSA cellulitis; present on admission: Local bedside small I&D was done at both sites of left axilla and posterior side of neck. Local procedure was assisted by Wound care nurse, Keyla. The patient is already started on IV vancomycin. Patient started on decontamination with chlorhexidine and Bactroban nasal ointment. Dose of vancomycin discussed with the pharmacist. The patient cellulitis and abscess right improved on IV vancomycin. The patient is discharged on Bactrim DS for 2 weeks, chlorhexidine topical skin described below neck daily for 2 weeks, then every other day for another 2 weeks. Bactroban nasal ointment for 3 more days. 2. Acute severe alcohol withdrawal, hyperactive with delirium with chronic alcohol use and dependence: Patient is being admitted on the regular floor. Initially patient was dehydrated and will rehydrate with IV fluid normal saline and then discontinued. IV thiamine switch to oral, IV Ativan as needed and Librium scheduled. On CIWA scale monitoring. Monitor intake and output. Folic acid and multivitamin. Labs reviewed. CBC within normal limit. CMP low BUN/creatinine mostly secondary to low muscle mass. LFTs within normal limit. UA within normal limit. U tox positive of opioids. Alcohol negative. On the patient's persistent request that he needs clonidine and Seroquel to keep him sober otherwise he will go back on heroin and alcohol, 7 tablets each of Seroquel and clonidine were given. The patient case coordinator to work early on getting PCP appointment to take over from it. Patient also advised to follow with a psychiatrist in 1-2 weeks. Follow-up with [facility] rehab program for which she has follow-up tomorrow. 3. Acute opioid/heroin withdrawal with history of opioid use and dependence: On CINA scale monitoring. On Librium and buprenorphine taper. On medications as per [facility] protocol to control the withdrawal symptoms. 4 Methamphetamine use: General symptom management. Counseling done. 5. Nicotine use and dependence with cigarettes: On nicotine patch. DVT prophylaxis: Low risk; early ambulation encouraged. Discharge medication reconciliation done. Discharge follow-up which was completed. Discharge meds and follow-up was also discussed with the patient and compliance reinforced. Total time spent, exact 35 minutes on discharge meds reconciliation, examination, review of imaging and blood test and discussion with the patient on follow-up instructions. Patient Problems: Active and Suspected Problems Alcohol withdrawal delirium, acute, hyperactive (Acute) Opioid withdrawal delirium, acute, hyperactive (Acute) Polysubstance (including opioids) dependence, daily use (Acute) Abscess of left axilla (Acute) Abscess of skin of neck (Acute) Posterior triangle of neck - Physical Exam Vital Signs Temp Pulse Resp BP Pulse Ox 97.6 F L 68 18 94/43 L 98 04/22/18 03:18 04/22/18 03:18 04/22/18 03:18 04/22/18 03:18 04/20/18 17:20 Oxygen Delivery Method Room Air Weight: 132 lb 8 oz Body Mass Index (BMI) 22.0 Intake and Output for Last 24 Hours 04/20/18 04/21/18 04/22/18 23:59 23:59 23:59 Intake Total 970 / 970 700 / 700 850 / 850 Balance 970 / 970 700 / 700 850 / 850 Laboratory Tests Past 24 Hrs 04/21/18 04/21/18 04/21/18 11:15 21:50 21:50 Sodium 138 Potassium 4.1 Chloride 104 Carbon Dioxide 30.0 Anion Gap 4 L BUN 13 Creatinine 0.73 Estim Creat Clear Calc 125.78 Est GFR (MDRD) Af Amer 163 Est GFR (MDRD) Non-Af 135 BUN/Creatinine Ratio 17.9 Glucose 109 H Calcium 8.3 L Vancomycin Trough 18.5 H S.aureus Protein A PCR POSITIVE H MRSA (PCR) POSITIVE H Discharge Activity: May Not Drive Weight Bearing Status: Weight bearing as tolerated Call your doctor if you observe: Fever of 101 or Higher, Inability to have a bowel movement, Shortness of breath, Dizziness, Fainting spells, Swelling in the ankles, Chest pain Home Medications: Medications to take at Discharge Chlorhexidine Gluconate [Antiseptic Skin Cleanser] 237 ml TP DAILY #2 bottle 04/22/18 Clonidine HCl 0.1 mg PO BID PRN PRN #7 tab 04/22/18 Folic Acid 1 mg PO DAILYCM tablet 04/22/18 Mupirocin Calcium [Bactroban Nasal] 1 gm NS BID #1 oint...g. 04/22/18 Quetiapine Fumarate [Seroquel] 50 mg PO DAILY PRN PRN #7 tab 04/22/18 Sulfamethoxazole/Trimethoprim [Bactrim Ds Tablet] 1 ea PO BID #28 tab 04/22/18 Thiamine Hydrochloride [Vitamin B1] 100 mg PO DAILYCM tablet 04/22/18 Following Prescrptions Were Given to Patient: Chlorhexidine Gluconate [Antiseptic Skin Cleanser] 237 ml TP DAILY #2 bottle Clonidine HCl 0.1 mg PO BID PRN PRN #7 tab PRN Reason: withdrawal symtom Quetiapine Fumarate [Seroquel] 50 mg PO DAILY PRN PRN #7 tab PRN Reason: insomnia] Mupirocin Calcium [Bactroban Nasal] 1 gm NS BID #1 oint...g. Sulfamethoxazole/Trimethoprim [Bactrim Ds Tablet] 1 ea PO BID #28 tab Primary Care Physician: Care Physician,No Primary [Primary Care Provider] - Please follow up with your Primary Care Physician in: in 1-2 weeks Medical Necessity - Tobacco Use Smoking Status: Heavy Smoker (>10/day) Tobacco Use: Cigarettes Meaningful Use Info Meaningful Use Diagnoses (Choose all that apply): None applicable Code Visit Inpatient E&M: 55029 Disch Hosp
[2018-04-22 08:54] VITALS: BP 91/38; PULSE 66; RESP 16; TEMP 36.4
[2018-04-22] MEDS: Mupirocin Ointment 22gm Tube 1 APPLIC NASAL (09:08)
[2018-04-22] MEDS: Folic Acid 1 MG Tablet PO (09:14)
[2018-04-22] MEDS: Thiamine Hydrochloride 100 MG Tablet PO (09:14)
[2018-04-22] MEDS: Multivitamins,Therapeutic Tablet 1 TABLET PO (09:14)
--- NOTE | 2018-04-22 10:09 | CASEMGMT ---
As per CM, pt would like information on PCP's and [facility]. CM printed list of PCP's that take pt's insurance. SW brought this to pt along w/information on [facility] and other mental health agencies in the area. Pt states he would like to go to [facility] as he would like to get back on Seroquel and Klonopin. Pt states he was taking this for anxiety and to sleep. Pt states he needs these medications in order to stay off of the dope. Pt agreeable to have SW set up an appointment. TANNER explained that SW can set up an intake appt, though it may take a little while to get in to see the psychiatrist. Pt states understanding. TANNER called [facility], set up an intake appointment for 04/26/18 at 10:15am. SW gave pt the information for the appointment, no further needs are anticipated, pt is going home today. VALENTINA Parrish, OUTPATIENT ADMITTING CLERK
[2018-04-22 11:36] VITALS: BP 112/68; PULSE 88
[2018-04-22] MEDS: cloNIDine HCl 0.1 MG Tablet PO (11:38)
== END 2018-04-22 12:25 | disposition home or self-care (01) | DRG 773 ==
PROVIDERS: Admitting Provider Internal Medicine; Referring Provider Internal Medicine; Visit Provider Internal Medicine
DX: F10.231 Alcohol dependence with withdrawal delirium (principal); Y90.0 Blood alcohol level of less than 20 mg/100 ml; F11.23 Opioid dependence with withdrawal; F17.210 Nicotine dependence, cigarettes, uncomplicated; L02.412 Cutaneous abscess of left axilla; B95.62 Methicillin resistant Staphylococcus aureus infection as the cause of diseases classified elsewhere; L02.11 Cutaneous abscess of neck; F15.10 Other stimulant abuse, uncomplicated
CPT/HCPCS: 36415; 80048; 80053; 80202; 80307; 80320; 81001; 82150; 83690; 85025; 85610; 87070; 87077; 87186; 87205; 87640; 87641; 99282; 99406; J7030; A4216; G0480; J3490

== ENCOUNTER 2018-05-24 11:56 | Inpatient (IN) | payer MEDICAID, SELFPAY ==
[2018-05-24] VITALS (10 sets, daily range): BP systolic 112–127; BP diastolic 72–94; PULSE 84–111; RESP 14–20; TEMP 36.7–37.6; O2SAT 94–98; BMI 20.7; BMI 20.6
[2018-05-24 14:26] LABS: Absolute Lymphocyte Count 1.84 X10^3/ul (0.83-4.51); Absolute Neutrophil Count 11.7 X10^3/uL (2.0-7.7); Basophil# 0.06 X10^3/uL; Basophil% 0.4 % (0-1); Eosinophil# 0.07 X10^3/uL; Eosinophils% 0.5 % (0-5); Hematocrit 35.2 % (40-54); Lymphocyte # 1.84 X10^3/ul (4.0); Lymphocyte % 11.9 % (19-41); Mean Corp Hgb Conc 34.1 g/gl (32-36); Mean Corpuscular Hgb 29.1 pg (27.0-32.0); Mean Corpuscular Volume 85.4 fL (80-94); Mean Platelet Vol. 11.7 fl (6.2-12.0); Monocyte# 1.75 X10^3/uL; Monocyte% 11.3 % (0-10); Neutrophil # 11.65 X10^3/uL (2.7-7.7); Neutrophil % 75.2 % (47-70); Platelet Count 180 K/mm3 (150-450); RBC Distribution Width CV 13.3 % (11.6-14.6); Red Blood Count 4.12 M/mm3 (4.6-6.2); White Blood Count 15.5 K/mm3 (4.4-11.0)
[2018-05-24 14:29] LABS: Anion Gap 5 (5-15); BUN 8 mg/dL (7-18); BUN/Creat Ratio 16.7 RATIO (10-20); Calcium,Total 7.9 mg/dL (8.5-10.1); Chloride 97 mmol/L (98-107); Creatinine, Serum 0.48 mg/dL (0.70-1.30); EST Glomerular Filtration Rate 218 mL/min (>60); Est Glom Filt Rate - Afr Amer 264 mL/min (>60); Estimated Creatinine Clearance 180.47 ml/min; Glucose 103 mg/dL (74-106); Potassium 3.7 mmol/L (3.5-5.1); Sodium Level 127 mmol/L (136-145)
[2018-05-24 14:30] LABS: Differential Indicated SCAN CRITERIA MET; POSITIVE COUNT NO; POSITIVE DIFFERENTIAL YES; POSITIVE MORPHOLOGY YES
--- NOTE | 2018-05-24 16:08 | ED.VISSUMM ---
- ER Visit Summary Date of Service: 05/24/18 Chief Complaint: Chills, fatigue, skin lesions History of Present Illness: The patient is a 28 M who has history of alcohol and drug use presents with subjective fever and chills. He also reports generalized weakness with fatigue. He states he is concerned he has a MRSA infection scalp. He denies headache, photophobia or neck stiffness. He does complain of unusual sensation. He does report palpitations. He denies change in vision, blurred vision or double vision. He denies rhinorrhea, congestion postnasal drainage. Denies sore throat. He denies vomiting or diarrhea. He denies urologic symptoms. He denies bruising easily. He denies history of SBE. He does have history of IV heroin drug use 5-6 times a day. Patient complains of his body hurting everywhere. Physical Examination: Vital signs are remarkable for temperature 99.7 heart rate of 111. He appears ill. He has a crusting scalp lesion with alopecia over the occiput and there is one near the right parietal occipital area. There is no lymphangitis. There is no posterior cervical lymphadenopathy. Patient complains of pain with movement of his neck but does not have according to presents to sign. Heart is rapid and regular. Question of a murmur. Lungs are clear to auscultation. Abdomen is benign. He has multiple fresh track clark right and left upper extremity. Neuro exam is nonfocal. Test Results: White count is 15.5 thousand. Sodium is 127 with a chloride 97. He denies drinking any water. He states he had decreased p.o. intake. Lactate is pending. Blood cultures were obtained. Emergency Department Course and Treatment: Concern patient has sepsis with tachycardia white count. Lactate was obtained to determine if he has severe sepsis. Need to evaluate for bacterial endocarditis. He does have evidence of skin infection; however, in my professional medical opinion not believe this is the cause of his tachycardia or white count. Urine osmolarity and serum osmolarity were obtained to evaluate for SIADH. Right external jugular line was placed however the line infiltrated and could not be used. A left external jugular line was placed and blood was drawn from the external jugular vein on the left by me. He received 1 g of Rocephin, 25 mg/kg vancomycin and 5 mg/kg of gentamicin after blood cultures were obtained. Treatment Plan: Case was discussed with hospitalist for admission to PCU Disposition: PCU Impression: 1. Sepsis 2. Cellulitis scalp 3. Evaluate for endocarditis 4. Hyponatremia rule out SIADH This note was generated with [employer] dictation software. It may contain incorrect words, spelling, and punctuation that were not noted in review of the chart prior to signing ED Disposition - Plan for ED Patient: Chief Complaint: Fatigue Referrals: Care Physician,No Primary [Primary Care Provider] -
--- NOTE | 2018-05-24 16:15 | ED.DCSUM_ITS ---
- ER Visit Summary Date of Service: 05/24/18 Chief Complaint: Chills, fatigue, skin lesions History of Present Illness: The patient is a 28 M who has history of alcohol and drug use presents with subjective fever and chills. He also reports generalized weakness with fatigue. He states he is concerned he has a MRSA infection scalp. He denies headache, photophobia or neck stiffness. He does complain of unusual sensation. He does report palpitations. He denies change in vision, blurred vision or double vision. He denies rhinorrhea, congestion postnasal drainage. Denies sore throat. He denies vomiting or diarrhea. He denies urologic symptoms. He denies bruising easily. He denies history of SBE. He does have history of IV heroin drug use 5-6 times a day. Patient complains of his body hurting everywhere. Physical Examination: Vital signs are remarkable for temperature 99.7 heart rate of 111. He appears ill. He has a crusting scalp lesion with alopecia over the occiput and there is one near the right parietal occipital area. There is no lymphangitis. There is no posterior cervical lymphadenopathy. Patient complains of pain with movement of his neck but does not have according to presents to sign. Heart is rapid and regular. Question of a murmur. Lungs are clear to auscultation. Abdomen is benign. He has multiple fresh track clark right and left upper extremity. Neuro exam is nonfocal. Test Results: White count is 15.5 thousand. Sodium is 127 with a chloride 97. He denies drinking any water. He states he had decreased p.o. intake. Lactate is pending. Blood cultures were obtained. Emergency Department Course and Treatment: Concern patient has sepsis with tachycardia white count. Lactate was obtained to determine if he has severe sepsis. Need to evaluate for bacterial endocarditis. He does have evidence of skin infection; however, in my professional medical opinion not believe this is the cause of his tachycardia or white count. Urine osmolarity and serum osmolar ity were obtained to evaluate for SIADH. Right external jugular line was placed however the line infiltrated and could not be used. A left external jugular line was placed and blood was drawn from t he external jugular vein on the left by me. He received 1 g of Rocephin, 25 mg/kg vancomycin and 5 mg/kg of gentamicin after blood cultures were obtained. Treatment Plan: Case was discussed with hospitalist for admission to PCU Disposition: PCU Impression: 1. Sepsis 2. Cellulitis scalp 3. Evaluate for endocarditis 4. Hyponatremia rule out SIADH This note was generated with [employer] dictation software. It may contain incorrect words, spelling, and punctuation that were not noted in review of the chart prior to signing ED Disposition - Plan for ED Patient: Chief Complaint: Fatigue Referrals: Care Physician,No Primary [Primary Care Provider] -
--- NOTE | 2018-05-24 16:58 | NURSING ---
third culture obtained for pt right foot. pt has a hx of heroin abuse. antibiotic's started prior to transfer. julian porter rn [id number]
[2018-05-24 17:25] LABS: Lactic Acid 0.6 mmol/L (0.4-2.0)
--- NOTE | 2018-05-24 17:57 | PCM.RX.CS ---
Consult Pharmacy has been consulted to manage selected antiobiotic: Vancomycin Type of Consult: New start Suspected Infection: Sepsis Labs: Sodium 127 mmol/L (136-145) L 05/24/18 14:04 Potassium 3.7 mmol/L (3.5-5.1) 05/24/18 14:04 Chloride 97 mmol/L (98-107) L 05/24/18 14:04 Carbon Dioxide 25.0 mmol/L (21.0-32.0) 05/24/18 14:04 Anion Gap 5 (5-15) 05/24/18 14:04 BUN 8 mg/dL (7-18) 05/24/18 14:04 Creatinine 0.48 mg/dL (0.70-1.30) L 05/24/18 14:04 Est GFR (MDRD) Af Amer 264 mL/min (>60) 05/24/18 14:04 Est GFR (MDRD) Non-Af 218 mL/min (>60) 05/24/18 14:04 BUN/Creatinine Ratio 16.7 RATIO (10-20) 05/24/18 14:04 Glucose 103 mg/dL (74-106) 05/24/18 14:04 Weight used for dosin lb 7.342 oz Estimated Creatinine Clearance: 180 Goal Trough: 10-15 mcg/mL Pharmacy Plan for Drug Dosing: Vancomycin 1500mg loading dose given in ED Trough will be done on 05/26 prior to 4th dose at 0430 Pharmacy Service will continue to monitor and adjust dosing as required.
[2018-05-24 17:59] LABS: Osmolality, Serum 272 mOsm/KG (275-295)
[2018-05-24 18:01] LABS: Osmolality, Urine 206 mOsm/KG
[2018-05-24] MEDS: chlordiazePOXIDE 25 MG Capsule PO ×2 (18:48→23:43)
[2018-05-24] MEDS: Dicyclomine 10 MG Capsule 20 MG PO (18:48)
[2018-05-24] MEDS: Folic Acid 1 MG Tablet PO (18:49)
[2018-05-24] MEDS: Multivitamins,Therapeutic Tablet 1 TABLET PO (18:49)
--- NOTE | 2018-05-24 18:51 | PCM.HP.STD ---
Problem List (1) Alcohol abuse Status: Chronic (2) Cellulitis Status: Acute (3) Tobacco use Status: Chronic (4) IV drug user Status: Chronic (5) Heroin abuse Status: Chronic History of Present Illness Date of Admission: 05/24/18 Chief Complaint: Right arm pain The patient is a 28 year old M with a past medical history as a below presenting with severe right arm pain and says that he is unable to move it. He was injecting heroin yesterday into that arm and woke up this am with arm pain, redness. No fevers, chills but he has had chest wall pain but no SOB. He presented to the ED with tachycardia and a leukocytosis to 15. He was recently admitted for heroin withdrawal to [facility] in march. In the ER he was started on vancomycin, however there was a delay in obtaining any IV given his IV drug use history and currently has an EJ. He also admits to drinking a pint of EtOH yesterday as well which was his last drink. Past Medical History Past Medical History (Chronic Problems): Chronic Problems Tobacco use (Chronic) IV drug user (Chronic) Heroin abuse (Chronic) Methamphetamine abuse (Chronic) Adderall use disorder, mild, abuse (Chronic) Alcohol abuse (Chronic) Allergies naloxone [From Suboxone] Allergy (Verified 05/24/18 17:42) makes my mouth go home buprenorphine [From Suboxone] Adverse Reaction (Verified 05/24/18 17:48) makes my mouth go numb Pt states ok to take subutex Home Medications: Ambulatory Orders Medication Instructions Recorded Clonidine HCl [Catapres] 0.1 mg PO DAILY PRN 05/24/18 Quetiapine Fumarate [Seroquel] 50 mg PO 4X/DAY 05/24/18 Surgical History: no surgical history Psychiatric History: No pertinent psych hx Smoking Status: Current every day smoker Tobacco Use: Cigarettes - *Family History Maternal History Items: Diabetes Paternal History Items: Diabetes Review of Systems Constitutional: Denies: Chills, Fever, Weight Change HEENT: Denies: Head Aches, Sinus Congestion, Sinus Drainage Cardiovascular: Reports: Chest Pain - Wall pain. Denies: Palpitations Respiratory: Denies: Cough, Shortness of breath at rest, Sputum production Gastrointestinal: Denies: Abdominal Pain, Nausea, Vomiting Genitourinary: Denies: Dysuria Musculoskeletal: Denies: Joint Pain, Joint Tenderness Skin: Reports: Skin Changes - induration and redness. Denies: Rash, Wounds Neurological: Denies: Numbness, Tingling, Focal weakness Psychiatric: Denies: Anxiety, Depression Hematologic/ Lymphatic: Denies: Easy Bruising, Easy Bleeding VTE Information - Inpt Only VTE Present on Admission: No Patient Problems: Active and Suspected Problems Cellulitis (Acute) - Physical Exam General: Alert, Oriented x3, Cooperative, No apparent distress HEENT: Atraumatic, PERRLA, EOMI, Normocephalic Oral: Dry Mucosa Neck: Supple, No JVD Lungs: Clear to auscultation, Normal air movement, No rhonchi, No wheeze, No rales Cardiovascular: Regular rate, Regular Rhythm, Normal S1, Normal S2, No murmurs Abdomen: Soft, Non Tender, Non-Distended, No Hepato-splenomegaly Extremities: No edema, Capillary Refill Less than 3 Seconds Skin: - - mild redness with induration in his right forearm. Multiple track sites on both UE Musculoskeletal: Tenderness - when trying to move his RUE, no trauma Neurological: Neuro grossly intact, Sensory exam intact to light touch and pain Psych/Mental Status: Normal Affect, Appropriate Vital Signs Temp Pulse Resp BP Pulse Ox 98.9 F 96 20 H 121/74 H 98 05/24/18 18:03 05/24/18 18:03 05/24/18 18:03 05/24/18 18:04 05/24/18 18:03 Oxygen Delivery Method Room Air Weight: 124 lb 1.924 oz Body Mass Index (BMI) 20.6 Laboratory Tests Past 24 Hrs 05/24/18 05/24/18 05/24/18 14:04 14:04 16:41 WBC 15.5 H RBC 4.12 L Hgb 12.0 L Hct 35.2 L MCV 85.4 MCH 29.1 MCHC 34.1 RDW 13.3 RDW Differential 41.0 Plt Count 180 MPV 11.7 Immature Gran % (Auto) 0.700 Neut % (Auto) 75.2 H Lymph % (Auto) 11.9 L [place] % (Auto) 11.3 H Eos % (Auto) 0.5 Baso % (Auto) 0.4 Absolute Neuts (auto) 11.7 H Absolute Lymphs (auto) 1.84 Total Counted Not Reportable Differential Comment COMMENT Diff Path Review May foll Sodium 127 L Potassium 3.7 Chloride 97 L Carbon Dioxide 25.0 Anion Gap 5 BUN 8 Creatinine 0.48 L Estim Creat Clear Calc 180.47 Est GFR (MDRD) Af Amer 264 Est GFR (MDRD) Non-Af 218 BUN/Creatinine Ratio 16.7 Glucose 103 Serum Osmolality Lactic Acid 0.6 Calcium 7.9 L Urine Osmolality 05/24/18 05/24/18 16:41 17:03 WBC RBC Hgb Hct MCV MCH MCHC RDW RDW Differential Plt Count MPV Immature Gran % (Auto) Neut % (Auto) Lymph % (Auto) [place] % (Auto) Eos % (Auto) Baso % (Auto) Absolute Neuts (auto) Absolute Lymphs (auto) Total Counted Differential Comment Diff Path Review Sodium Potassium Chloride Carbon Dioxide Anion Gap BUN Creatinine Estim Creat Clear Calc Est GFR (MDRD) Af Amer Est GFR (MDRD) Non-Af BUN/Creatinine Ratio Glucose Serum Osmolality 272 L Lactic Acid Calcium Urine Osmolality 206 Assessment/Plan All Active Problems Left leg cellulitis (Resolved) Alcohol withdrawal delirium, acute, hyperactive (Acute) Opioid withdrawal delirium, acute, hyperactive (Acute) Polysubstance (including opioids) dependence, daily use (Acute) Abscess of left axilla (Acute) Abscess of skin of neck (Acute) Cellulitis (Acute) 1. Sepsis 2/2 Cellulitis with induration after IV drug use - Will start on vancomycin and zosyn and monitor - Blood cx are pending, no murmur so will hold off on echo at this time - lactate is 0.6 - IVF@150 2. EtOH and Opiod abuse/Hyponatremia - Will start on EtOH and Opiod tapers with subutex and librium - Will follow the [facility] protocols - discussed cessation - Low sodium secondary to EtOH 3. Tobacco abuse - Advised cessation DVT: None Diet: Cardiac Code Visit Inpatient E&M: 74969 Init Hosp L3
[2018-05-24] MEDS: 0.9% Normal Saline 1,000 ML 150 ML IV ×2 (18:54→22:13)
[2018-05-24] MEDS: Buprenorphine HCl 2 MG TAB.SUBL SL (20:49)
[2018-05-24] MEDS: Piperacil/Tazobactam 3.375 GM/50 ML ML IV (20:50)
[2018-05-24] MEDS: QUEtiapine 25 MG Tablet 50 MG PO (22:13)
[2018-05-24] MEDS: cloNIDine HCl 0.1 MG Tablet PO (23:43)
[2018-05-25] VITALS (12 sets, daily range): BP systolic 117–133; BP diastolic 57–73; PULSE 73–107; RESP 12–20; TEMP 36.9–37.4; O2SAT 96–100
[2018-05-25] MEDS: Buprenorphine HCl 2 MG TAB.SUBL SL ×3 (04:05→20:59)
[2018-05-25] MEDS: chlordiazePOXIDE 25 MG Capsule PO ×3 (06:25→21:00)
[2018-05-25] MEDS: Vancomycin IV 1,000 MG/200 ML BAG 200 MG IV ×2 (06:25→16:54)
[2018-05-25 06:49] LABS: Anion Gap 10 (5-15); BUN 5 mg/dL (7-18); BUN/Creat Ratio 9.8 RATIO (10-20); Chloride 103 mmol/L (98-107); Creatinine, Serum 0.51 mg/dL (0.70-1.30); EST Glomerular Filtration Rate 202 mL/min (>60); Est Glom Filt Rate - Afr Amer 244 mL/min (>60); Estimated Creatinine Clearance 168.65 ml/min; Glucose 115 mg/dL (74-106); Potassium 3.7 mmol/L (3.5-5.1); Sodium Level 137 mmol/L (136-145)
[2018-05-25 07:12] LABS: Absolute Lymphocyte Count 2.02 X10^3/ul (0.83-4.51); Absolute Neutrophil Count 9.1 X10^3/uL (2.0-7.7); Basophil# 0.02 X10^3/uL; Basophil% 0.2 % (0-1); Eosinophil# 0.05 X10^3/uL; Eosinophils% 0.4 % (0-5); Hematocrit 29.8 % (40-54); Lymphocyte # 2.02 X10^3/ul (4.0); Lymphocyte % 16.1 % (19-41); Mean Corp Hgb Conc 33.6 g/gl (32-36); Mean Corpuscular Hgb 28.6 pg (27.0-32.0); Mean Corpuscular Volume 85.1 fL (80-94); Mean Platelet Vol. 12.1 fl (6.2-12.0); Monocyte# 1.39 X10^3/uL; Monocyte% 11.1 % (0-10); Neutrophil # 9.06 X10^3/uL (2.7-7.7); Platelet Count 190 K/mm3 (150-450); RBC Distribution Width CV 13.5 % (11.6-14.6); RBC Distribution Width SD 42.3 fl (35.1-43.9); White Blood Count 12.6 K/mm3 (4.4-11.0)
[2018-05-25 07:13] LABS: POSITIVE COUNT NO; POSITIVE DIFFERENTIAL NO; POSITIVE MORPHOLOGY NO
[2018-05-25] MEDS: Methocarbamol 750 MG Tablet PO (07:36)
[2018-05-25] MEDS: 0.9% Normal Saline 1,000 ML 150 ML IV ×3 (07:36→21:01)
[2018-05-25] MEDS: Piperacil/Tazobactam 3.375 GM/50 ML ML IV (07:36)
[2018-05-25] MEDS: QUEtiapine 25 MG Tablet 50 MG PO ×4 (08:44→21:01)
[2018-05-25] MEDS: Multivitamins,Therapeutic Tablet 1 TABLET PO (08:45)
[2018-05-25] MEDS: Thiamine Hydrochloride 100 MG Tablet PO (08:45)
[2018-05-25] MEDS: Folic Acid 1 MG Tablet PO (08:45)
[2018-05-25] MEDS: 0.9% NaCl Peripheral Flush Adult/Peds IV ×2 (08:45→17:00)
--- NOTE | 2018-05-25 10:18 | ECHOCS_ITS ---
Reason For Study: Murmur Procedure This was a 2D Doppler, Color Flow transthoracic echocardiogram. The study was technically difficult. Contrast injection was performed. Exam performed portable in patient room. Left Ventricle Normal LV size. Left ventricular systolic function is normal. The estimated ejection fraction is 70 %. Diastolic function is indeterminate. No regional wall motion abnormalities noted. Right Ventricle Normal RV size. Normal systolic function. Atria Normal left atrium. Normal right atrium. No doppler evidence for ASD. Mitral Valve There is no mitral annular calcification. Mild focal mitral valve calcification of the anterior leaflet. Trivial mitral valve insufficiency. Tricuspid Valve Normal tricuspid valve. Trivial tricuspid valve insufficiency. Unable to estimate RV systolic pressure/pulmonary artery pressure due to technically difficult study. Aortic Valve The aortic valve is not well visualized. Pulmonic Valve The pulmonic valve is not well visualized. Great Vessels The aortic root is not well visualized. Pericardium/Pleural No pericardial effusion. Medication Diluted definity 1ml given slow IV push to enhance endocardial definition. MMode/2D Measurements & Calculations LVIDd: 4.3 cm IVSd: 0.74 cm LA dimension: 3.2 cm LVIDs: 2.7 cm LVPWd: 1.1 cm RVDd: 2.8 cm FS: 38.1 % LAV(MOD-sp4): 46.1 ml LA A4 area: 15.8 cm2 RA A4 area: 13.8 cm2 Time Measurements MV dec time: 0.20 sec Doppler Measurements & Calculations MV E max theodore: 91.3 cm/sec Ao V2 max: 161.1 cm/sec LV V1 max: 135.2 cm/sec MV A max theodore: 62.7 cm/sec Ao max P.4 mmHg LV V1 max P.3 mmHg MV E/A: 1.5 Ao V2 mean: 108.7 cm/sec LV V1 mean P.5 mmHg Ao mean P.5 mmHg LV V1 mean: 86.7 cm/sec Ao V2 VTI: 26.8 cm LV V1 VTI: 24.1 cm PA V2 max: 115.6 cm/sec Interpretation Summary The study was technically difficult. Contrast injection was performed. Left ventricular systolic function is normal. The estimated ejection fraction is 70 %. Mild focal mitral valve calcification of the anterior leaflet. Trivial mitral valve insufficiency. Trivial tricuspid valve insufficiency. Unable to estimate RV systolic pressure/pulmonary artery pressure due to technically difficult study. Diastolic function is indeterminate. Ordering Physician: Jonatan Martell Performed By: Pee Tai RCS
--- NOTE | 2018-05-25 10:44 | PCM.PN.HOSP ---
Patient Problems: Active and Suspected Problems Cellulitis (Acute) Subjective: No complaints, resting comfortably Vitals/I&O's: Vital Signs Temp Pulse Resp BP Pulse Ox 99.4 F H 97 18 129/69 H 100 05/25/18 09:10 05/25/18 09:10 05/25/18 09:10 05/25/18 09:10 05/25/18 09:10 Oxygen Delivery Method Room Air Weight: 124 lb 1.924 oz Body Mass Index (BMI) 20.6 Intake and Output for Last 24 Hours 05/23/18 05/24/18 05/25/18 23:59 23:59 23:59 Intake Total 3280 / 3280 Output Total 1875 / 1875 Balance 1405 / 1405 General: Alert, Oriented x3, Cooperative, No apparent distress HEENT: Atraumatic, PERRLA, EOMI, Normocephalic Oral: Dry Mucosa Neck: Supple, No JVD Lungs: Clear to auscultation, Normal air movement, No rhonchi, No wheeze, No rales Cardiovascular: Regular rate, Regular Rhythm, Normal S1, Normal S2, No murmurs Abdomen: Soft, Non Tender, Non-Distended, No Hepato-splenomegaly Extremities: No edema, Capillary Refill Less than 3 Seconds Skin: - - mild redness with induration in his right forearm. Multiple track sites on both UE Musculoskeletal: Tenderness - when trying to move his RUE, no trauma Neurological: Neuro grossly intact, Sensory exam intact to light touch and pain Psych/Mental Status: Normal Affect, Appropriate Microbiology Past 72 Hours 05/24/18 15:00 Blood Culture (Wb) - Neck Blood Culture - Preliminary 05/24/18 16:41 Blood Culture (Wb) - Venous Bacteria Detection (PCR) - Final Staphylococcus aureus mecA Resistance Marker 05/24/18 16:41 Blood Culture (Wb) - Venous Blood Culture - Preliminary Laboratory Results 05/24/18 14:04: WBC 15.5 H, RBC 4.12 L, Hgb 12.0 L, Hct 35.2 L, MCV 85.4, MCH 29.1, MCHC 34.1, RDW 13.3, RDW Differential 41.0, Plt Count 180, MPV 11.7, Immature Gran % (Auto) 0.700, Neut % (Auto) 75.2 H, Lymph % (Auto) 11.9 L, Teller % (Auto) 11.3 H, Eos % (Auto) 0.5, Baso % (Auto) 0.4, Absolute Neuts (auto) 11.7 H, Absolute Lymphs (auto) 1.84, Total Counted Not Reportable, Differential Comment COMMENT, Diff Path Review October05/24/18 14:04: Sodium 127 L, Potassium 3.7, Chloride 97 L, Carbon Dioxide 25.0, Anion Gap 5, BUN 8, Creatinine 0.48 L, Estim Creat Clear Calc 180.47, Est GFR (MDRD) Af Amer 264, Est GFR (MDRD) Non-Af 218, BUN/Creatinine Ratio 16.7, Glucose 103, Calcium 7.9 L 05/24/18 16:41: Lactic Acid 0.6 05/24/18 16:41: Serum Osmolality 272 L 05/24/18 17:03: Urine Osmolality 206 05/25/18 05:20: WBC 12.6 H, RBC 3.50 L, Hgb 10.0 L, Hct 29.8 L, MCV 85.1, MCH 28.6, MCHC 33.6, RDW 13.5, RDW Differential 42.3, Plt Count 190, MPV 12.1 H, Immature Gran % (Auto) 0.200, Neut % (Auto) 72.0 H, Lymph % (Auto) 16.1 L, Teller % (Auto) 11.1 H, Eos % (Auto) 0.4, Baso % (Auto) 0.2, Absolute Neuts (auto) 9.1 H, Absolute Lymphs (auto) 2.02, Total Counted Not Reportable 05/25/18 05:20: Sodium 137, Potassium 3.7, Chloride 103, Carbon Dioxide 24.0, Anion Gap 10, BUN 5 L, Creatinine 0.51 L, Estim Creat Clear Calc 168.65, Est GFR (MDRD) Af Amer 244, Est GFR (MDRD) Non-Af 202, BUN/Creatinine Ratio 9.8 L, Glucose 115 H, Calcium 8.0 L Current Medications Buprenorphine HCl (Buprenorphine Hcl) 4 mg SL Q8H MICHEL; Taper Stop: 05/27/18 23:59 Last Admin: 05/25/18 04:05 Dose: 4 mg Chlordiazepoxide (Librium) 50 mg PO Q6H MICHEL; Taper Stop: 05/27/18 19:59 Last Admin: 05/25/18 06:25 Dose: 50 mg Clonidine (Catapres) 0.1 mg PO DAILY PRN PRN Reason: withdrawl symptoms Last Admin: 05/24/18 23:43 Dose: 0.1 mg Dicyclomine HCl (Bentyl) 20 mg PO Q6H PRN PRN PRN Reason: abdominal discomfort Last Admin: 05/24/18 18:48 Dose: 20 [facility] Last Admin: 05/25/18 08:45 Dose: 1 mg Hydroxyzine Pamoate (Vistaril Pamoate Capsule) 50 mg PO Q6H PRN PRN PRN Reason: Mild Anxiety (score 1/3) Sodium Chloride () 1,000 mls @ 150 mls/hr IV .Q6H40M [facility] Last Admin: 05/25/18 07:36 Dose: 150 mls/hr Vancomycin IV Pharmacy to Dose (1 ea/ Sodium Chloride) 500 mls @ 250 mls/hr IV X1 PRN; Protocol PRN Reason: Rx to Dose Vancomycin HCl (Vancomycin) 1,000 mg in 200 mls @ 200 mls/hr IV Q12H [facility] Last Admin: 05/25/18 06:25 Dose: 200 mls/hr Lorazepam (Ativan) 1 mg IV Q4H PRN PRN PRN Reason: Severe Anxiety Magnesium Hydroxide (Milk Of Magnesia) 30 ml PO DAILY PRN PRN Reason: Constipation Methocarbamol (Methocarbamol) 750 mg PO Q6H PRN PRN PRN Reason: Muscle Aches Last Admin: 05/25/18 07:36 Dose: 750 mg [facility]it[facility] ([facility]amin) [facility] Last Admin: 05/25/18 08:45 Dose: 1 tablet Nutritional Formula (Lactose Free) (Ensure Enlive) 120 ml PO 4X/DAY [facility] Last Admin: 05/25/18 08:45 Dose: 120 ml Quetiapine Fumarate (Seroquel) 50 mg PO 4X/DAY [facility] Last Admin: 05/25/18 08:44 Dose: 50 mg Sodium Chloride () 5 - 30 ml IV UD PRN PRN Reason: SALINE FLUSH Last Admin: 05/25/18 08:45 Dose: 10 ml Thiamine HCl ([facility]itamin B[facility]) [facility] Last Admin: 05/25/18 08:45 Dose: 100 mg Medical Necessity - Tobacco Use Smoking Status: Current every day smoker Tobacco Use: Cigarettes Assessment/Plan All Active Problems Left leg cellulitis (Resolved) Alcohol withdrawal delirium, acute, hyperactive (Acute) Opioid withdrawal delirium, acute, hyperactive (Acute) Polysubstance (including opioids) dependence, daily use (Acute) Abscess of left axilla (Acute) Abscess of skin of neck (Acute) Cellulitis (Acute) 1. Sepsis 2/2 Cellulitis with induration after IV drug use - Prelim MRSA in the blood - Repeat blood cx today, c/w vanc and will dc zosyn - Since he is an IV drug user, will not place picc line and he will likely need PO zyvox to complete treatment - Echo today, if poor study may need CHRISTINE - C/s to ID 2. EtOH and Opiod abuse/Hyponatremia (resolved - C/w EtOH and Opiod tapers with subutex and librium - discussed cessation 3. Tobacco abuse - Advised cessation DVT: None Diet: Cardiac Code Visit Inpatient E&M: 23245 Subs Hosp L2
--- NOTE | 2018-05-25 10:47 | PN_ITS ---
Patient Problems: Active and Suspected Problems Cellulitis (Acute) Subjective: No complaints, resting comfortably Vitals/I&O's: Vital Signs Temp Pulse Resp BP Pulse Ox 99.4 F H 97 18 129/69 H 100 05/25/18 09:10 05/25/18 09:10 05/25/18 09:10 05/25/18 09:10 05/25/18 09:10 Oxygen Delivery Method Room Air Weight: 124 lb 1.924 oz Body Mass Index (BMI) 20.6 Intake and Output for Last 24 Hours 05/23/18 05/24/18 05/25/18 23:59 23:59 23:59 Intake Total 3280 / 3280 Output Total 1875 / 1875 Balance 1405 / 1405 General: Alert, Oriented x3, Cooperative, No apparent distress HEENT: Atraumatic, PERRLA, EOMI, Normocephalic Oral: Dry Mucosa Neck: Supple, No JVD Lungs: Clear to auscultation, Normal air movement, No rhonchi, No wheeze, No rales Cardiovascular: Regular rate, Regular Rhythm, Normal S1, Normal S2, No murmurs Abdomen: Soft, Non Tender, Non-Distended, No Hepato-splenomegaly Extremities: No edema, Capillary Refill Less than 3 Seconds Skin: - - mild redness with induration in his right forearm. Multiple track sites on both UE Musculoskeletal: Tenderness - when trying to move his RUE, no trauma Neurological: Neuro grossly intact, Sensory exam intact to light touch and pain Psych/Mental Status: Normal Affect, Appropriate Microbiology Past 72 Hours 05/24/18 15:00 Blood Culture (Wb) - Neck Blood Culture - Preliminary 05/24/18 16:41 Blood Culture (Wb) - Venous Bacteria Detection (PCR) - Final Staphylococcus aureus mecA Resistance Marker 05/24/18 16:41 Blood Culture (Wb) - Venous Blood Culture - Preliminary Laboratory Results 05/24/18 14:04: WBC 15.5 H, RBC 4.12 L, Hgb 12.0 L, Hct 35.2 L, MCV 85.4, MCH 29.1, MCHC 34.1, RDW 13.3, RDW Differential 41.0, Plt Count 180, MPV 11.7, Immature Gran % (Auto) 0.700, Neut % (Auto) 75.2 H, Lymph % (Auto) 11.9 L, Hodgeman % (Auto) 11.3 H, Eos % (Auto) 0.5, Baso % (Auto) 0.4, Absolute Neuts (auto) 11.7 H, Absolute Lymphs (auto) 1.84, Total Counted Not Reportable, Differential Comment COMMENT, Diff Path Review October05/24/18 14:04: Sodium 127 L, Potassium 3.7, Chloride 97 L, Carbon Dioxide 25.0, Anion Gap 5, BUN 8, Creatinine 0.48 L, Estim Creat Clear Calc 180.47, Est GFR (MDRD) Af Amer 264, Est GFR (MDRD) Non-Af 218, BUN/Creatinine Ratio 16.7, Glucose 103, Calcium 7.9 L 05/24/18 16:41: Lactic Acid 0.6 05/24/18 16:41: Serum Osmolality 272 L 05/24/18 17:03: Urine Osmolality 206 05/25/18 05:20: WBC 12.6 H, RBC 3.50 L, Hgb 10.0 L, Hct 29.8 L, MCV 85.1, MCH 28.6, MCHC 33.6, RDW 13.5, RDW Differential 42.3, Plt Count 190, MPV 12.1 H, Immature Gran % (Auto) 0.200, Neut % (Auto) 72.0 H, Lymph % (Auto) 16.1 L, Hodgeman % (Auto) 11.1 H, Eos % (Auto) 0.4, Baso % (Auto) 0.2, Absolute Neuts (auto) 9.1 H, Absolute Lymphs (auto) 2.02, Total Counted Not Reportable 05/25/18 05:20: Sodium 137, Potassium 3.7, Chloride 103, Carbon Dioxide 24.0, Anion Gap 10, BUN 5 L, Creatinine 0.51 L, Estim Creat Clear Calc 168.65, Est GFR (MDRD) Af Amer 244, Est GFR (MDRD) Non-Af 202, BUN/Creatinine Ratio 9.8 L, Glucose 115 H, Calcium 8.0 L Current Medications Buprenorphine HCl (Buprenorphine Hcl) 4 mg SL Q8H MICHEL; Taper Stop: 05/27/18 23:59 Last Admin: 05/25/18 04:05 Dose: 4 mg Chlordiazepoxide (Librium) 50 mg PO Q6H MICHEL; Taper Stop: 05/27/18 19:59 Last Admin: 05/25/18 06:25 Dose: 50 mg Clonidine (Catapres) 0.1 mg PO DAILY PRN PRN Reason: withdrawl symptoms Last Admin: 05/24/18 23:43 Dose: 0.1 mg Dicyclomine HCl (Bentyl) 20 mg PO Q6H PRN PRN PRN Reason: abdominal discomfort Last Admin: 05/24/18 18:48 Dose: 20 [facility] Last Admin: 05/25/18 08:45 Dose: 1 mg Hydroxyzine Pamoate (Vistaril Pamoate Capsule) 50 mg PO Q6H PRN PRN PRN Reason: Mild Anxiety (score 1/3) Sodium Chloride () 1,000 mls @ 150 mls/hr IV .Q6H40M [facility] Last Admin: 05/25/18 07:36 Dose: 150 mls/hr Vancomycin IV Pharmacy to Dose (1 ea/ Sodium Chloride) 500 mls @ 250 mls/hr IV X1 PRN; Protocol PRN Reason: Rx to Dose Vancomycin HCl (Vancomycin) 1,000 mg in 200 mls @ 200 mls/hr IV Q12H [facility] Last Admin: 05/25/18 06:25 Dose: 200 mls/hr Lorazepam (Ativan) 1 mg IV Q4H PRN PRN PRN Reason: Severe Anxiety Magnesium Hydroxide (Milk Of Magnesia) 30 ml PO DAILY PRN PRN Reason: Constipation Methocarbamol (Methocarbamol) 750 mg PO Q6H PRN PRN PRN Reason: Muscle Aches Last Admin: 05/25/18 07:36 Dose: 750 mg [facility]ivit[facility] ([facility]amin) [facility] Last Admin: 05/25/18 08:45 Dose: 1 tablet Nutritional Formula (Lactose Free) (Ensure Enlive) 120 ml PO 4X/DAY [facility] Last Admin: 05/25/18 08:45 Dose: 120 ml Quetiapine Fumarate (Seroquel) 50 mg PO 4X/DAY [facility] Last Admin: 05/25/18 08:44 Dose: 50 mg Sodium Chloride () 5 - 30 ml IV UD PRN PRN Reason: SALINE FLUSH Last Admin: 05/25/18 08:45 Dose: 10 ml Thiamine HCl ([facility]itamin B1) [facility] Last Admin: 05/25/18 08:45 Dose: 100 mg Medical Necessity - Tobacco Use Smoking Status: Current every day smoker Tobacco Use: Cigarettes Assessment/Plan All Active Problems Left leg cellulitis (Resolved) Alcohol withdrawal delirium, acute, hyperactive (Acute) Opioid withdrawal delirium, acute, hyperactive (Acute) Polysubstance (including opioids) dependence, daily use (Acute) Abscess of left axilla (Acute) Abscess of skin of neck (Acute) Cellulitis (Acute) 1. Sepsis 2/2 Cellulitis with induration after IV drug use - Prelim MRSA in the blood - Repeat blood cx today, c/w vanc and will dc zosyn - Since he is an IV drug user, will not place picc line and he will likely need PO zyvox to complete treatment - Echo today, if poor study may need CHRISTINE - C/s to ID 2. EtOH and Opiod abuse/Hyponatremia (resolved - C/w EtOH and Opiod tapers with subutex and librium - discussed cessation 3. Tobacco abuse - Advised cessation DVT: None Diet: Cardiac Code Visit Inpatient E&M: 35534 Subs Hosp L2
--- NOTE | 2018-05-25 11:59 | CASEMGMT ---
Social Work Unit - PCU Attempt made to complete initial case management assessment today, for assessment of needs and resources. Per physician patient does have MRSA in blood at this time. Spoke with bedside RN who reports patient has been sleepy today, pleasant but not real responsive to questions and interventions. Attempted to meet with patient in room. Patient sleeping but woke slightly when this television writer attempted to speak to patient. Patient made sound in the affirmative that could wake up and talk to this television writer, but continued on with eyes closed and appearing sleepy. Unable to complete assessment today based on patient's appearing sleepiness. Noted in chart that patient was with [facility] for detox, as well as seen by hospital outreach and education social worker in March 2018. side door worker provided a PCP list then as well as an intake appointment [facility]. Will attempt again as able for assessment. -VALENTINA Hussein, [employer]
[2018-05-25 12:08] LABS: Pathologist Review Reviewed
[2018-05-26] VITALS (12 sets, daily range): BP systolic 115–134; BP diastolic 60–89; PULSE 96–103; RESP 14–18; TEMP 36.7–37.7; O2SAT 97–100
[2018-05-26] MEDS: Methocarbamol 750 MG Tablet PO ×3 (00:45→17:09)
[2018-05-26] MEDS: 0.9% Normal Saline 1,000 ML 150 ML IV ×3 (04:15→17:10)
[2018-05-26] MEDS: chlordiazePOXIDE 25 MG Capsule PO ×3 (04:58→20:44)
[2018-05-26] MEDS: Buprenorphine HCl 2 MG TAB.SUBL SL ×2 (04:59→12:45)
[2018-05-26] MEDS: Vancomycin IV 1,000 MG/200 ML BAG 200 MG IV (06:12)
[2018-05-26 07:19] LABS: Absolute Lymphocyte Count 2.22 X10^3/ul (0.83-4.51); Absolute Neutrophil Count 9.9 X10^3/uL (2.0-7.7); Basophil# 0.04 X10^3/uL; Basophil% 0.3 % (0-1); Eosinophil# 0.04 X10^3/uL; Eosinophils% 0.3 % (0-5); Hematocrit 31.2 % (40-54); Hemoglobin 10.4 g/dl (13.0-16.5); Lymphocyte # 2.22 X10^3/ul (4.0); Lymphocyte % 16.5 % (19-41); Mean Corp Hgb Conc 33.3 g/gl (32-36); Mean Corpuscular Hgb 29.1 pg (27.0-32.0); Mean Corpuscular Volume 87.4 fL (80-94); Monocyte# 1.18 X10^3/uL; Monocyte% 8.8 % (0-10); Neutrophil # 9.88 X10^3/uL (2.7-7.7); Neutrophil % 73.7 % (47-70); POSITIVE COUNT NO; POSITIVE DIFFERENTIAL NO; POSITIVE MORPHOLOGY YES; Platelet Count 229 K/mm3 (150-450); RBC Distribution Width CV 13.5 % (11.6-14.6); RBC Distribution Width SD 42.2 fl (35.1-43.9); Red Blood Count 3.57 M/mm3 (4.6-6.2); White Blood Count 13.4 K/mm3 (4.4-11.0)
[2018-05-26 07:20] LABS: Differential Indicated SCAN CRITERIA MET
[2018-05-26] MEDS: Multivitamins,Therapeutic Tablet 1 TABLET PO (08:35)
[2018-05-26] MEDS: Thiamine Hydrochloride 100 MG Tablet PO (08:35)
[2018-05-26] MEDS: QUEtiapine 25 MG Tablet 50 MG PO ×4 (08:35→21:01)
[2018-05-26] MEDS: Folic Acid 1 MG Tablet PO (08:35)
--- NOTE | 2018-05-26 08:56 | PCM.RX.CS ---
Consult Pharmacy has been consulted to manage selected antiobiotic: Vancomycin Type of Consult: Follow-up Suspected Infection: Skin/Soft tissue Prior Doses of Antibiotics Received/Current Regimen: Patient has been on 1gm iv q12h. Labs: Sodium 137 mmol/L (136-145) 05/25/18 05:20 Potassium 3.7 mmol/L (3.5-5.1) 05/25/18 05:20 Chloride 103 mmol/L (98-107) 05/25/18 05:20 Carbon Dioxide 24.0 mmol/L (21.0-32.0) 05/25/18 05:20 Anion Gap 10 (5-15) 05/25/18 05:20 BUN 5 mg/dL (7-18) L 05/25/18 05:20 Creatinine 0.51 mg/dL (0.70-1.30) L 05/25/18 05:20 Est GFR (MDRD) Af Amer 244 mL/min (>60) 05/25/18 05:20 Est GFR (MDRD) Non-Af 202 mL/min (>60) 05/25/18 05:20 BUN/Creatinine Ratio 9.8 RATIO (10-20) L 05/25/18 05:20 Glucose 115 mg/dL (74-106) H 05/25/18 05:20 Vancomycin Trough 3.0 ug/mL (5.0-15.0) L 05/26/18 04:48 Microbiology: Microbiology 05/25/18 12:10 Blood Culture (Wb) - Right Hand Blood Culture - Preliminary 05/25/18 12:00 Blood Culture (Wb) - Right Hand Blood Culture - Preliminary 05/24/18 16:41 Blood Culture (Wb) - Venous Bacteria Detection (PCR) - Final Staphylococcus aureus mecA Resistance Marker 05/24/18 16:41 Blood Culture (Wb) - Venous Blood Culture - Preliminary 05/24/18 15:00 Blood Culture (Wb) - Neck Blood Culture - Preliminary Weight used for dosin.3 kg Estimated Creatinine Clearance: ~180ml/min Goal Trough: 10-15 mcg/mL Pharmacy Plan for Drug Dosing: Trough 05.26.18 was 3.0 (goal range 10-15). Renal function unchanged. Will increase dose to 1250mg iv q8h and get repeat trough level before 4th dose of new regimen on 05.27.18. Pharmacy Service will continue to monitor and adjust dosing as required. Follow-Up Labs: Trough Vancomycin - 05.27.18 @63531 before 1400 dose
--- NOTE | 2018-05-26 10:45 | PCM.PN.HOSP ---
Patient Problems: Active and Suspected Problems Cellulitis (Acute) Subjective: No complaints overnight, resting comfortably, no signs of active withdrawal at the moment Vitals/I&O's: Vital Signs Temp Pulse Resp BP Pulse Ox 98.9 F 97 14 115/62 97 05/26/18 08:37 05/26/18 08:37 05/26/18 08:37 05/26/18 08:37 05/26/18 08:37 Oxygen Delivery Method Room Air Weight: 124 lb 1.924 oz Body Mass Index (BMI) 20.6 Intake and Output for Last 24 Hours 05/24/18 05/25/18 05/26/18 23:59 23:59 23:59 Intake Total 6912 / 6912 2847 / 2847 Output Total 5090 / 5090 2400 / 2400 Balance 1822 / 1822 447 / 447 General: Alert, Oriented x3, Cooperative, No apparent distress HEENT: Atraumatic, PERRLA, EOMI, Normocephalic Oral: Dry Mucosa Neck: Supple, No JVD Lungs: Clear to auscultation, Normal air movement, No rhonchi, No wheeze, No rales Cardiovascular: Regular rate, Regular Rhythm, Normal S1, Normal S2, No murmurs Abdomen: Soft, Non Tender, Non-Distended, No Hepato-splenomegaly Extremities: No edema, Capillary Refill Less than 3 Seconds Skin: - - mild redness with induration in his right forearm. Multiple track sites on both UE Musculoskeletal: Tenderness - when trying to move his RUE, no trauma Neurological: Neuro grossly intact, Sensory exam intact to light touch and pain Psych/Mental Status: Normal Affect, Appropriate Microbiology Past 72 Hours 05/25/18 12:10 Blood Culture (Wb) - Right Hand Blood Culture - Preliminary 05/25/18 12:00 Blood Culture (Wb) - Right Hand Blood Culture - Preliminary 05/24/18 16:41 Blood Culture (Wb) - Venous Bacteria Detection (PCR) - Final Staphylococcus aureus mecA Resistance Marker 05/24/18 16:41 Blood Culture (Wb) - Venous Blood Culture - Preliminary 05/24/18 15:00 Blood Culture (Wb) - Neck Blood Culture - Preliminary Laboratory Results 05/24/18 14:04: Diff Path Review Reviewed 05/26/18 04:48: Vancomycin Trough 3.0 L 05/26/18 04:48: WBC 13.4 H, RBC 3.57 L, Hgb 10.4 L, Hct 31.2 L, MCV 87.4, MCH 29.1, MCHC 33.3, RDW 13.5, RDW Differential 42.2, Plt Count 229, MPV 12.0, Immature Gran % (Auto) 0.400, Neut % (Auto) 73.7 H, Lymph % (Auto) 16.5 L, Cecil % (Auto) 8.8, Eos % (Auto) 0.3, Baso % (Auto) 0.3, Absolute Neuts (auto) 9.9 H, Absolute Lymphs (auto) 2.22, Total Counted Not Reportable Current Medications Buprenorphine HCl (Buprenorphine Hcl) 2 mg SL Q8H MICHEL; Taper Stop: 05/27/18 23:59 Last Admin: 05/26/18 04:59 Dose: 2 mg Chlordiazepoxide (Librium) 50 mg PO Q8H MICHEL; Taper Stop: 05/27/18 19:59 Last Admin: 05/26/18 04:58 Dose: 50 mg Clonidine (Catapres) 0.1 mg PO DAILY PRN PRN Reason: withdrawl symptoms Last Admin: 05/24/18 23:43 Dose: 0.1 mg Dicyclomine HCl (Bentyl) 20 mg PO Q6H PRN PRN PRN Reason: abdominal discomfort Last Admin: 05/24/18 18:48 Dose: 20 mg Folic Acid (Folic Acid) 1 mg PO DAILYCM [facility] Last Admin: 05/26/18 08:35 Dose: 1 mg Hydroxyzine Pamoate (Vistaril Pamoate Capsule) 50 mg PO Q6H PRN PRN PRN Reason: Mild Anxiety (score 1/3) Sodium Chloride () 1,000 mls @ 150 mls/hr IV .Q6H40M [facility] Last Admin: 05/26/18 04:15 Dose: 150 mls/hr Vancomycin IV Pharmacy to Dose (1 ea/ Sodium Chloride) 500 mls @ 250 mls/hr IV X1 PRN; Protocol PRN Reason: Rx to Dose Vancomycin HCl 1,250 mg/ (Sodium Chloride) 275 mls @ 167 mls/hr IV Q8H MICHEL Lorazepam (Ativan) 1 mg IV Q4H PRN PRN PRN Reason: Severe Anxiety Magnesium Hydroxide (Milk Of Magnesia) 30 ml PO DAILY PRN PRN Reason: Constipation Methocarbamol (Methocarbamol) 750 mg PO Q6H PRN PRN PRN Reason: Muscle Aches Last Admin: 05/26/18 08:35 Dose: 750 mg [facility]ivitamins ([facility]ivitamin) [address] [facility] Last Admin: 05/26/18 08:35 Dose: 1 tablet Nutritional Formula (Lactose Free) (Ensure Enlive) 120 ml PO 4X/DAY [facility] Last Admin: 05/26/18 08:35 Dose: 120 ml Quetiapine Fumarate (Seroquel) 50 mg PO 4X/DAY [facility] Last Admin: 05/26/18 08:35 Dose: 50 mg Sodium Chloride () 5 - 30 ml IV UD PRN PRN Reason: SALINE FLUSH Last Admin: 05/25/18 17:00 Dose: 20 ml Thiamine HCl (Vitamin B1) [address] [facility] Last Admin: 05/26/18 08:35 Dose: 100 mg Medical Necessity - Tobacco Use Smoking Status: Current every day smoker Tobacco Use: Cigarettes Assessment/Plan All Active Problems Left leg cellulitis (Resolved) Alcohol withdrawal delirium, acute, hyperactive (Acute) Opioid withdrawal delirium, acute, hyperactive (Acute) Polysubstance (including opioids) dependence, daily use (Acute) Abscess of left axilla (Acute) Abscess of skin of neck (Acute) Cellulitis (Acute) 1. Sepsis 2/2 Cellulitis with induration after IV drug use - Prelim MRSA in the blood, repeat cultures yesterday with gram positive cocci - c/w vanc - Since he is an IV drug user, will not place picc line and he will likely need PO zyvox to complete treatment - Echo today, no sign of vegetations, though it was a technically difficult study. Will discuss with ID the need for CHRISTINE - C/s to ID 2. EtOH and Opiod abuse/Hyponatremia (resolved - C/w EtOH and Opiod tapers with subutex and librium - discussed cessation 3. Tobacco abuse - Advised cessation DVT: Ambulation Diet: Cardiac Code Visit Inpatient E&M: 23198 Subs Hosp L2
--- NOTE | 2018-05-26 10:48 | PN_ITS ---
Patient Problems: Active and Suspected Problems Cellulitis (Acute) Subjective: No complaints overnight, resting comfortably, no signs of active withdrawal at the moment Vitals/I&O's: Vital Signs Temp Pulse Resp BP Pulse Ox 98.9 F 97 14 115/62 97 05/26/18 08:37 05/26/18 08:37 05/26/18 08:37 05/26/18 08:37 05/26/18 08:37 Oxygen Delivery Method Room Air Weight: 124 lb 1.924 oz Body Mass Index (BMI) 20.6 Intake and Output for Last 24 Hours 05/24/18 05/25/18 05/26/18 23:59 23:59 23:59 Intake Total 6912 / 6912 2847 / 2847 Output Total 5090 / 5090 2400 / 2400 Balance 1822 / 1822 447 / 447 General: Alert, Oriented x3, Cooperative, No apparent distress HEENT: Atraumatic, PERRLA, EOMI, Normocephalic Oral: Dry Mucosa Neck: Supple, No JVD Lungs: Clear to auscultation, Normal air movement, No rhonchi, No wheeze, No rales Cardiovascular: Regular rate, Regular Rhythm, Normal S1, Normal S2, No murmurs Abdomen: Soft, Non Tender, Non-Distended, No Hepato-splenomegaly Extremities: No edema, Capillary Refill Less than 3 Seconds Skin: - - mild redness with induration in his right forearm. Multiple track sites on both UE Musculoskeletal: Tenderness - when trying to move his RUE, no trauma Neurological: Neuro grossly intact, Sensory exam intact to light touch and pain Psych/Mental Status: Normal Affect, Appropriate Microbiology Past 72 Hours 05/25/18 12:10 Blood Culture (Wb) - Right Hand Blood Culture - Preliminary 05/25/18 12:00 Blood Culture (Wb) - Right Hand Blood Culture - Preliminary 05/24/18 16:41 Blood Culture (Wb) - Venous Bacteria Detection (PCR) - Final Staphylococcus aureus mecA Resistance Marker 05/24/18 16:41 Blood Culture (Wb) - Venous Blood Culture - Preliminary 05/24/18 15:00 Blood Culture (Wb) - Neck Blood Culture - Preliminary Laboratory Results 05/24/18 14:04: Diff Path Review Reviewed 05/26/18 04:48: Vancomycin Trough 3.0 L 05/26/18 04:48: WBC 13.4 H, RBC 3.57 L, Hgb 10.4 L, Hct 31.2 L, MCV 87.4, MCH 29.1, MCHC 33.3, RDW 13.5, RDW Differential 42.2, Plt Count 229, MPV 12.0, Immature Gran % (Auto) 0.400, Neut % (Auto) 73.7 H, Lymph % (Auto) 16.5 L, [place] % (Auto) 8.8, Eos % (Auto) 0.3, Baso % (Auto) 0.3, Absolute Neuts (auto) 9.9 H, Absolute Lymphs (auto) 2.22, Total Counted Not Reportable Current Medications Buprenorphine HCl (Buprenorphine Hcl) 2 mg SL Q8H MICHEL; Taper Stop: 05/27/18 23:59 Last Admin: 05/26/18 04:59 Dose: 2 mg Chlordiazepoxide (Librium) 50 mg PO Q8H MICHEL; Taper Stop: 05/27/18 19:59 Last Admin: 05/26/18 04:58 Dose: 50 mg Clonidine (Catapres) 0.1 mg PO DAILY PRN PRN Reason: withdrawl symptoms Last Admin: 05/24/18 23:43 Dose: 0.1 mg Dicyclomine HCl (Bentyl) 20 mg PO Q6H PRN PRN PRN Reason: abdominal discomfort Last Admin: 05/24/18 18:48 Dose: 20 mg Folic Acid (Folic Acid) 1 mg PO DAILYCM [facility] Last Admin: 05/26/18 08:35 Dose: 1 mg Hydroxyzine Pamoate (Vistaril Pamoate Capsule) 50 mg PO Q6H PRN PRN PRN Reason: Mild Anxiety (score 1/3) Sodium Chloride () 1,000 mls @ 150 mls/hr IV .Q6H40M [facility] Last Admin: 05/26/18 04:15 Dose: 150 mls/hr Vancomycin IV Pharmacy to Dose (1 ea/ Sodium Chloride) 500 mls @ 250 mls/hr IV X1 PRN; Protocol PRN Reason: Rx to Dose Vancomycin HCl 1,250 mg/ (Sodium Chloride) 275 mls @ 167 mls/hr IV Q8H MICHEL Lorazepam (Ativan) 1 mg IV Q4H PRN PRN PRN Reason: Severe Anxiety Magnesium Hydroxide (Milk Of Magnesia) 30 ml PO DAILY PRN PRN Reason: Constipation Methocarbamol (Methocarbamol) 750 mg PO Q6H PRN PRN PRN Reason: Muscle Aches Last Admin: 05/26/18 08:35 Dose: 750 mg [facility] Last Admin: 05/26/18 08:35 Dose: 1 tablet Nutritional Formula (Lactose Free) (Ensure Enlive) 120 ml PO 4X/DAY [facility] Last Admin: 05/26/18 08:35 Dose: 120 ml Quetiapine Fumarate (Seroquel) 50 mg PO 4X/DAY [facility] Last Admin: 05/26/18 08:35 Dose: 50 mg Sodium Chloride () 5 - 30 ml IV UD PRN PRN Reason: SALINE FLUSH Last Admin: 05/25/18 17:00 Dose: 20 ml Thiamine HCl ([facility]itamin B1) [facility] Last Admin: 05/26/18 08:35 Dose: 100 mg Medical Necessity - Tobacco Use Smoking Status: Current every day smoker Tobacco Use: Cigarettes Assessment/Plan All Active Problems Left leg cellulitis (Resolved) Alcohol withdrawal delirium, acute, hyperactive (Acute) Opioid withdrawal delirium, acute, hyperactive (Acute) Polysubstance (including opioids) dependence, daily use (Acute) Abscess of left axilla (Acute) Abscess of skin of neck (Acute) Cellulitis (Acute) 1. Sepsis 2/2 Cellulitis with induration after IV drug use - Prelim MRSA in the blood, repeat cultures yesterday with gram positive cocci - c/w vanc - Since he is an IV drug user, will not place picc line and he will likely need PO zyvox to complete treatment - Echo today, no sign of vegetations, though it was a technically difficult study. Will discuss with ID the need for CHRISTINE - C/s to ID 2. EtOH and Opiod abuse/Hyponatremia (resolved - C/w EtOH and Opiod tapers with subutex and librium - discussed cessation 3. Tobacco abuse - Advised cessation DVT: Ambulation Diet: Cardiac Code Visit Inpatient E&M: 20820 Subs Hosp L2
--- NOTE | 2018-05-26 11:53 | CASEMGMT ---
SW attempted to meet with patient again this am. He was sleeping, SW did try and wake him. He briefly woke up and SW asked him if he would like resources for treatment. He mumbled no and went back to sleep. SW will try and meet with patient another time. Estela ELLSWORTH MSW
--- NOTE | 2018-05-26 14:04 | CON.PCM_ITS ---
Problem List (1) MRSA bacteremia Status: Acute Reason for Consult: mrsa bacteremia Consulted by: Dr. Martell History of Present Illness: The patient is a 28 year old M []with h/o IVDU heroin and meth use, hep C, recurrent mrsa skin abscess who presented with sudden onset RUE pain, swelling, redness after injecting into that arm; also c/o severe continuous pain across his chest. Admitted a month ago from [facility] with L axillary abscess. Bedside I&D done 04/[address] Davenport, cx with MRSA, CoNS, and GBS. Sent out on bactrim. Came to [facility] 05/02 with 2 draining abscesses on back of his head. No cx sent, given bactrim and keflex. Has continued to have swelling and pain with some drainage in back of head since then. Has ongoing IVDU, mostly injecting into his arms. No sharing needles, does not lick his needles or injection sites. Does not recall when last HIV test was. Arm and chest pain now resolved. No new joint or back pain now. On iv vanc, bcx with MRSA. Full ROS performed and neg except as noted above. - Medical History Past Medical History (Chronic Problems): Chronic Problems Tobacco use (Chronic) IV drug user (Chronic) Heroin abuse (Chronic) Methamphetamine abuse (Chronic) Adderall use disorder, mild, abuse (Chronic) Alcohol abuse (Chronic) Allergies/Adverse Reactions: Allergies naloxone [From Suboxone] Allergy (Verified 05/24/18 17:42) makes my mouth go home buprenorphine [From Suboxone] Adverse Reaction (Verified 05/24/18 17:48) makes my mouth go numb Pt states ok to take subutex Home Medications: Ambulatory Orders Medication Instructions Recorded Clonidine HCl [Catapres] 0.1 mg PO DAILY PRN 05/24/18 Quetiapine Fumarate [Seroquel] 50 mg PO 4X/DAY 05/24/18 - Social History Tobacco Use: cigarettes Drug Use: heroin Vital Signs Temp Pulse Resp BP Pulse Ox 98.9 F 98 16 124/70 H 100 05/26/18 12:35 05/26/18 12:35 05/26/18 12:35 05/26/18 12:35 05/26/18 12:35 Oxygen Delivery Method Room Air Weight: 56.3 kg Body Mass Index (BMI) 20.6 Microbiology Past 72 Hours 05/25/18 12:10 Blood Culture - Preliminary Blood Culture (Wb) - Right Hand 05/25/18 12:00 Blood Culture - Preliminary Blood Culture (Wb) - Right Hand 05/24/18 16:41 Bacteria Detection (PCR) - Final Blood Culture (Wb) - Venous Staphylococcus aureus mecA Resistance Marker Blood Culture - Preliminary 05/24/18 15:00 Blood Culture - Preliminary Blood Culture (Wb) - Neck Laboratory Tests Past 24 Hrs 05/26/18 05/26/18 04:48 04:48 WBC 13.4 H RBC 3.57 L Hgb 10.4 L Hct 31.2 L MCV 87.4 MCH 29.1 MCHC 33.3 RDW 13.5 RDW Differential 42.2 Plt Count 229 MPV 12.0 Immature Gran % (Auto) 0.400 Neut % (Auto) 73.7 H Lymph % (Auto) 16.5 L [place] % (Auto) 8.8 Eos % (Auto) 0.3 Baso % (Auto) 0.3 Absolute Neuts (auto) 9.9 H Absolute Lymphs (auto) 2.22 Total Counted Not Reportable Vancomycin Trough 3.0 L - Other Studies Radiology: [] reviewed Other Studies: [] Route of nutrition/ use of supplements: [] Nutritional Intake: [] IV Site: [] Frye Catheter: [] - Physical Exam General: Alert, Oriented x3, Cooperative, No apparent distress, - - ill appearing HEENT: Atraumatic, PERRLA, EOMI Neck: Supple, No Nodes, No Nuchal Rigidity Lungs: Clear to auscultation, Normal air movement Cardiovascular: Regular rate, Regular Rhythm, No murmurs Abdomen: Soft, Non Tender, Non-Distended Extremities: No edema Skin: - - fluctuant large crusted ulcer on back of head. No janeway/osler/splinter hemorrhages on hands or feet Musculoskeletal: No Tenderness to Palpation of Joints or Extremities - including spine Neurological: Cranial nerves II-XII grossly intact - Assessment/Plan Antibiotics: [] Assessment/Plan: [] Active and Suspected Problems Cellulitis (Acute) MRSA bacteremia from posterior scalp abscess - will consult surgery for I&D of fluctuant abscess on back of head which should help with bcx clearance. TTE showed no veg. Repeat bcx today. Continue iv vanc. Will need CHRISTINE later this admission. No sign of metastatic infection on exam. IVDU with h/o hep C - will check hiv, hep C pcr, hep b studies. Will follow, thank you, d/w Dr. Martell and nursing.
--- NOTE | 2018-05-26 15:18 | PCM.CONS.GEN ---
Reason for Consult Date of Consultation: 05/26/18 Reason for Consultation: right posterior scalp abscess History of Present Illness: The patient is a 28 year old M presented to the ER due to right upper extremity pain while trying to inject heroin. Patient had a leukocytosis on admission and was found to have a positive blood culture for MRSA. Patient states he does heroin daily, recently he was admitted for [facility] for withdraw. Last month he also had an I&D of his arm due to abscess due to the IV drug use. Patient states he had fevers and chills when he came in. Patient is able to answer questions however he does so with his eyes closed for the entire interview. Patient states that he has had this abscess on the back of his head for about 1 month and it does drain on its own denies any trauma to that site prior to getting the abscess. Patient also has healing scab on the right lateral occiput with a patch of alopecia, as patient states his hair just fell out in that area. Past Medical History Past Medical History (Chronic Problems): Chronic Problems Tobacco use (Chronic) IV drug user (Chronic) Heroin abuse (Chronic) Methamphetamine abuse (Chronic) Adderall use disorder, mild, abuse (Chronic) Alcohol abuse (Chronic) Allergies naloxone [From Suboxone] Allergy (Verified 05/24/18 17:42) makes my mouth go home buprenorphine [From Suboxone] Adverse Reaction (Verified 05/24/18 17:48) makes my mouth go numb Pt states ok to take subutex Home Medications: Ambulatory Orders Medication Instructions Recorded Clonidine HCl [Catapres] 0.1 mg PO DAILY PRN 05/24/18 Quetiapine Fumarate [Seroquel] 50 mg PO 4X/DAY 05/24/18 Surgical History: no surgical history Psychiatric History: No pertinent psych hx Smoking Status: Current every day smoker Tobacco Use: Cigarettes - *Family History Maternal History Items: Diabetes Paternal History Items: Diabetes Review of Systems Constitutional: Reports: Fever - Prior to coming in HEENT: Denies: Difficulty Swallowing Cardiovascular: Denies: Chest Pain - Currently Respiratory: Denies: Shortness of Breath - Currently Gastrointestinal: Denies: Abdominal Pain, Nausea, Vomiting Musculoskeletal: Reports: Back Pain Skin: Denies: Jaundice Psychiatric: Denies: Anxiety Hematologic/ Lymphatic: Denies: Easy Bruising, Easy Bleeding Patient Problems: Active and Suspected Problems Cellulitis (Acute) MRSA bacteremia (Acute) - Physical Exam General: Cooperative, No apparent distress, - - Somnolent, patient does answer questions however keeps his eyes closed the entire time. Lungs: Normal air movement Cardiovascular: Regular rate Abdomen: Soft, Non Tender, Non-Distended Extremities: No clubbing, No cyanosis, No edema Skin: - - 3x3cm scab over right occiput with purulent drainage, healing scab on the right lateral/posterior scalp with alopecia patch Neurological: Cranial nerves II-XII grossly intact Psych/Mental Status: Flat Affect Vital Signs Temp Pulse Resp BP Pulse Ox 98.9 F 98 16 124/70 H 100 05/26/18 12:35 05/26/18 12:35 05/26/18 12:35 05/26/18 12:35 05/26/18 12:35 Oxygen Delivery Method Room Air Weight: 124 lb 1.924 oz Body Mass Index (BMI) 20.6 Intake and Output for Last 24 Hours 05/24/18 05/25/18 05/26/18 23:59 23:59 23:59 Intake Total 6912 / 6912 4237 / 4237 Output Total 5090 / 5090 4200 / 4200 Balance 1822 / 1822 37 / 37 Microbiology Past 72 Hours 05/25/18 12:10 Blood Culture - Preliminary Blood Culture (Wb) - Right Hand 05/25/18 12:00 Blood Culture - Preliminary Blood Culture (Wb) - Right Hand 05/24/18 16:41 Bacteria Detection (PCR) - Final Blood Culture (Wb) - Venous Staphylococcus aureus mecA Resistance Marker Blood Culture - Preliminary 05/24/18 15:00 Blood Culture - Preliminary Blood Culture (Wb) - Neck Laboratory Tests Past 24 Hrs 05/26/18 05/26/18 04:48 04:48 WBC 13.4 H RBC 3.57 L Hgb 10.4 L Hct 31.2 L MCV 87.4 MCH 29.1 MCHC 33.3 RDW 13.5 RDW Differential 42.2 Plt Count 229 MPV 12.0 Immature Gran % (Auto) 0.400 Neut % (Auto) 73.7 H Lymph % (Auto) 16.5 L [place] % (Auto) 8.8 Eos % (Auto) 0.3 Baso % (Auto) 0.3 Absolute Neuts (auto) 9.9 H Absolute Lymphs (auto) 2.22 Total Counted Not Reportable Vancomycin Trough 3.0 L Assessment/Plan All Active Problems Left leg cellulitis (Resolved) Alcohol withdrawal delirium, acute, hyperactive (Acute) Opioid withdrawal delirium, acute, hyperactive (Acute) Polysubstance (including opioids) dependence, daily use (Acute) Abscess of left axilla (Acute) Abscess of skin of neck (Acute) Cellulitis (Acute) MRSA bacteremia (Acute) 28 y/o male IV drug user (heroin), MRSA bacteremia, right occiput abscess 1. After consent was obtained, the right occiput abscess was prepped with betadine, lidocaine 1% w epi was used 2 cc over the area of the scab with purulent drainage. 11 blade scapel was used to make a oval incision in the scab to allow the purulent material to drain, obtained only about 3 cc of purulent material, cx obtained, wound irrigated with saline, packed with 1/4 iodoform and dressed with gauze. Pt tolerated the procedure well. ok to remove packing in 1 day. Mary Ivy M.D. Pager: [phone] [facility] [address] [place] [address], Outpatient [facility], [address] [place] [address] Office: [phone] Code Visit Inpatient E&M: 04502 Init Hosp L1
--- NOTE | 2018-05-26 15:25 | CON.PCM_ITS ---
Reason for Consult Date of Consultation: 05/26/18 Reason for Consultation: right posterior scalp abscess History of Present Illness: The patient is a 28 year old M presented to the ER due to right upper extremity pain while trying to inject heroin. Patient had a leukocytosis on admission and was found to have a positive blood culture for MRSA. Patient states he does heroin daily, recently he was admitted for [facility] for withdraw. Last month he also had an I&D of his arm due to abscess due to the IV drug use. Patient states he had fevers and chills when he came in. Patient is able to answer questions however he does so with his eyes closed for the entire interview. Yolette rivero states that he has had this abscess on the back of his head for about 1 month and it does drain on its own denies any trauma to that site prior to getting the abscess. Patient also has healing scab on the right lateral occiput with a patch of alopecia, as patient states his hair just fell out in that area. Past Medical History Past Medical History (Chronic Problems): Chronic Problems Tobacco use (Chronic) IV drug user (Chronic) Heroin abuse (Chronic) Methamphetamine abuse (Chronic) Adderall use disorder, mild, abuse (Chronic) Alcohol abuse (Chronic) Allergies naloxone [From Suboxone] Allergy (Verified 05/24/18 17:42) makes my mouth go home buprenorphine [From Suboxone] Adverse Reaction (Verified 05/24/18 17:48) makes my mouth go numb Pt states ok to take subutex Home Medications: Ambulatory Orders Medication Instructions Recorded Clonidine HCl [Catapres] 0.1 mg PO DAILY PRN 05/24/18 Quetiapine Fumarate [Seroquel] 50 mg PO 4X/DAY 05/24/18 Surgical History: no surgical history Psychiatric History: No pertinent psych hx Smoking Status: Current every day smoker Tobacco Use: Cigarettes - *Family History Maternal History Items: Diabetes Paternal History Items: Diabetes Review of Systems Constitutional: Reports: Fever - Prior to coming in HEENT: Denies: Difficulty Swallowing Cardiovascular: Denies: Chest Pain - Currently Respiratory: Denies: Shortness of Breath - Currently Gastrointestinal: Denies: Abdominal Pain, Nausea, Vomiting Musculoskeletal: Reports: Back Pain Skin: Denies: Jaundice Psychiatric: Denies: Anxiety Hematologic/ Lymphatic: Denies: Easy Bruising, Easy Bleeding Patient Problems: Active and Suspected Problems Cellulitis (Acute) MRSA bacteremia (Acute) - Physical Exam General: Cooperative, No apparent distress, - - Somnolent, patient does answer questions however keeps his eyes closed the entire time. Lungs: Normal air movement Cardiovascular: Regular rate Abdomen: Soft, Non Tender, Non-Distended Extremities: No clubbing, No cyanosis, No edema Skin: - - 3x3cm scab over right occiput with purulent drainage, healing scab on the right lateral/posterior scalp with alopecia patch Neurological: Cranial nerves II-XII grossly intact Psych/Mental Status: Flat Affect Vital Signs Temp Pulse Resp BP Pulse Ox 98.9 F 98 16 124/70 H 100 05/26/18 12:35 05/26/18 12:35 05/26/18 12:35 05/26/18 12:35 05/26/18 12:35 Oxygen Delivery Method Room Air Weight: 124 lb 1.924 oz Body Mass Index (BMI) 20.6 Intake and Output for Last 24 Hours 05/24/18 05/25/18 05/26/18 23:59 23:59 23:59 Intake Total 6912 / 6912 4237 / 4237 Output Total 5090 / 5090 4200 / 4200 Balance 1822 / 1822 37 / 37 Microbiology Past 72 Hours 05/25/18 12:10 Blood Culture - Preliminary Blood Culture (Wb) - Right Hand 05/25/18 12:00 Blood Culture - Preliminary Blood Culture (Wb) - Right Hand 05/24/18 16:41 Bacteria Detection (PCR) - Final Blood Culture (Wb) - Venous Staphylococcus aureus mecA Resistance Marker Blood Culture - Preliminary 05/24/18 15:00 Blood Culture - Preliminary Blood Culture (Wb) - Neck Laboratory Tests Past 24 Hrs 05/26/18 05/26/18 04:48 04:48 WBC 13.4 H RBC 3.57 L Hgb 10.4 L Hct 31.2 L MCV 87.4 MCH 29.1 MCHC 33.3 RDW 13.5 RDW Differential 42.2 Plt Count 229 MPV 12.0 Immature Gran % (Auto) 0.400 Neut % (Auto) 73.7 H Lymph % (Auto) 16.5 L [place] % (Auto) 8.8 Eos % (Auto) 0.3 Baso % (Auto) 0.3 Absolute Neuts (auto) 9.9 H Absolute Lymphs (auto) 2.22 Total Counted Not Reportable Vancomycin Trough 3.0 L Assessment/Plan All Active Problems Left leg cellulitis (Resolved) Alcohol withdrawal delirium, acute, hyperactive (Acute) Opioid withdrawal delirium, acute, hyperactive (Acute) Polysubstance (including opioids) dependence, daily use (Acute) Abscess of left axilla (Acute) Abscess of skin of neck (Acute) Cellulitis (Acute) MRSA bacteremia (Acute) 28 y/o male IV drug user (heroin), MRSA bacteremia, right occiput abscess 1. After consent was obtained, the right occiput abscess was prepped with betadine, lidocaine 1% w epi was used 2 cc over the area of the scab with purulent drainage. 11 blade scapel was used to make a oval incision in the scab to allow the purulent material to drain, obtained only about 3 cc of purulent material, cx obtained, wound irrigated with saline, packed with 1/4 iodoform and dressed with gauze. Pt tolerated the procedure well. ok to remove packing in 1 day. Mary Ivy M.D. Pager: [phone] [facility] [address] [place] [address], Outpatient [facility], [address] [place] [address] Office: [phone] Code Visit Inpatient E&M: 15710 Init Hosp L1
[2018-05-27] VITALS (13 sets, daily range): BP systolic 106–126; BP diastolic 56–70; PULSE 89–101; RESP 18–20; TEMP 36.8–37.5; O2SAT 96–99
[2018-05-27] MEDS: 0.9% Normal Saline 1,000 ML 150 ML IV ×3 (00:43→21:57)
[2018-05-27] MEDS: Buprenorphine HCl 2 MG TAB.SUBL SL ×2 (00:43→11:56)
[2018-05-27] MEDS: Methocarbamol 750 MG Tablet PO ×2 (03:21→20:11)
[2018-05-27 07:12] LABS: Anion Gap 11 (5-15); BUN 4 mg/dL (7-18); BUN/Creat Ratio 8.8 RATIO (10-20); Calcium,Total 7.6 mg/dL (8.5-10.1); Chloride 104 mmol/L (98-107); Creatinine, Serum 0.45 mg/dL (0.70-1.30); EST Glomerular Filtration Rate 232 mL/min (>60); Est Glom Filt Rate - Afr Amer 280 mL/min (>60); Estimated Creatinine Clearance 191.14 ml/min; Glucose 100 mg/dL (74-106); Sodium Level 138 mmol/L (136-145)
[2018-05-27] MEDS: Multivitamins,Therapeutic Tablet 1 TABLET PO (08:22)
[2018-05-27] MEDS: Folic Acid 1 MG Tablet PO (08:22)
[2018-05-27] MEDS: chlordiazePOXIDE 25 MG Capsule PO (08:22)
[2018-05-27] MEDS: Thiamine Hydrochloride 100 MG Tablet PO (08:22)
--- NOTE | 2018-05-27 08:28 | PN.SURG_ITS ---
Patient Problems: Active and Suspected Problems Cellulitis (Acute) MRSA bacteremia (Acute) Subjective: Patient's blood cultures positive for staph aureus, patient denies any pain at the right occiput abscess site. - Physical Exam General: Alert, Cooperative, No apparent distress Skin: - - Right occiput abscess site still has some purulent material under some of the scab, shallow wound base with viable tissue Vital Signs Temp Pulse Resp BP Pulse Ox 99.5 F H 91 18 108/56 L 96 05/27/18 08:00 05/27/18 08:00 05/27/18 08:00 05/27/18 08:00 05/27/18 08:00 Oxygen Delivery Method Room Air Weight: 124 lb 1.924 oz Body Mass Index (BMI) 20.6 Intake and Output for Last 24 Hours 05/25/18 05/26/18 05/27/18 23:59 23:59 23:59 Intake Total 6912 / 6912 6191 / 6191 2978 / 2978 Output Total 5090 / 5090 5415 / 5415 2300 / 2300 Balance 1822 / 1822 776 / 776 678 / 678 Microbiology Past 72 Hours 05/24/18 16:41 Bacteria Detection (PCR) - Final Blood Culture (Wb) - Venous Staphylococcus aureus mecA Resistance Marker Blood Culture - Final Staphylococcus aureus 05/24/18 15:00 Blood Culture - Final Blood Culture (Wb) - Neck Meth. resistant Staph. aureus 05/25/18 12:10 Blood Culture - Preliminary Blood Culture (Wb) - Right Hand 05/25/18 12:00 Blood Culture - Preliminary Blood Culture (Wb) - Right Hand Laboratory Tests Past 24 Hrs 05/27/18 05/27/18 05/27/18 06:32 06:32 06:32 Sodium 138 Potassium 4.0 Chloride 104 Carbon Dioxide 23.0 Anion Gap 11 BUN 4 L Creatinine 0.45 L Estim Creat Clear Calc 191.14 Est GFR (MDRD) Af Amer 280 Est GFR (MDRD) Non-Af 232 BUN/Creatinine Ratio 8.8 L Glucose 100 Calcium 7.6 L Hep Bs Antigen Pending Hep B Core Total Ab Pending Hepatitis C Ab (EIA) Pending HCV RNA Quant (PCR) Pending HIV 1&2 Antibody Pending Medical Necessity - Tobacco Use Smoking Status: Current every day smoker Tobacco Use: Cigarettes Assessment/Plan All Active Problems Left leg cellulitis (Resolved) Alcohol withdrawal delirium, acute, hyperactive (Acute) Opioid withdrawal delirium, acute, hyperactive (Acute) Polysubstance (including opioids) dependence, daily use (Acute) Abscess of left axilla (Acute) Abscess of skin of neck (Acute) Cellulitis (Acute) MRSA bacteremia (Acute) 28 y/o male IV drug user (heroin), MRSA bacteremia, right occiput abscess 1. Packing was removed and the rest of the scab was debrided to allow wound care to the base. Did talk with Keyla the wound nurse and she recommended Aquacel AG dressings applied daily. Mary Ivy M.D. Pager: [phone] [facility] [address] [place] [address], [address] [place] [id number] Office: [phone]
--- NOTE | 2018-05-27 10:24 | PCM.PN.ID ---
Patient Problems: Active and Suspected Problems Cellulitis (Acute) MRSA bacteremia (Acute) Subjective: Feeling ok, no pain in arm. Head is sore s/p I&D. No fever. - Physical Exam General: Alert, Cooperative, No apparent distress Lungs: Clear to auscultation, Normal air movement Cardiovascular: Regular rate, Regular Rhythm Abdomen: Soft, Non Tender, Non-Distended Skin: Ulcer/ Wound - on occiput Vital Signs Temp Pulse Resp BP Pulse Ox 99.5 F H 91 18 108/56 L 96 05/27/18 08:00 05/27/18 08:00 05/27/18 08:00 05/27/18 08:00 05/27/18 08:00 Oxygen Delivery Method Room Air Weight: 56.3 kg Body Mass Index (BMI) 20.6 Intake and Output for Last 24 Hours 05/25/18 05/26/18 05/27/18 23:59 23:59 23:59 Intake Total 6912 / 6912 6191 / 6191 2978 / 2978 Output Total 5090 / 5090 5415 / 5415 2300 / 2300 Balance 1822 / 1822 776 / 776 678 / 678 Microbiology Past 72 Hours 05/24/18 16:41 Bacteria Detection (PCR) - Final Blood Culture (Wb) - Venous Staphylococcus aureus mecA Resistance Marker Blood Culture - Final Staphylococcus aureus 05/24/18 15:00 Blood Culture - Final Blood Culture (Wb) - Neck Meth. resistant Staph. aureus 05/25/18 12:10 Blood Culture - Preliminary Blood Culture (Wb) - Right Hand 05/25/18 12:00 Blood Culture - Preliminary Blood Culture (Wb) - Right Hand Laboratory Tests Past 24 Hrs 05/27/18 05/27/18 05/27/18 06:32 06:32 06:32 Sodium 138 Potassium 4.0 Chloride 104 Carbon Dioxide 23.0 Anion Gap 11 BUN 4 L Creatinine 0.45 L Estim Creat Clear Calc 191.14 Est GFR (MDRD) Af Amer 280 Est GFR (MDRD) Non-Af 232 BUN/Creatinine Ratio 8.8 L Glucose 100 Calcium 7.6 L Hep Bs Antigen Pending Hep B Core Total Ab Pending Hepatitis C Ab (EIA) Pending HCV RNA Quant (PCR) Pending HIV 1&2 Antibody Pending Medical Necessity - Tobacco Use Smoking Status: Current every day smoker Tobacco Use: Cigarettes Route of nutrition/ use of supplements: [] Nutritional Intake: [] IV Site: [] Frye Catheter: [] - Assessment/Plan Antibiotics: [] Assessment/Plan: [] Active and Suspected Problems Cellulitis (Acute) MRSA bacteremia from posterior scalp abscess - I&D done of scalp abscess 05/[address] Ivy, wound cx sent. TTE showed no veg. Repeat bcx today. Continue iv vanc; trough was very low. Will need CHRISTINE later this admission, could try for tomorrow or Thursday. No sign of metastatic infection on exam. IVDU with h/o hep C - pending hiv, hep C pcr, hep b studies. Will follow
[2018-05-27] MEDS: QUEtiapine 25 MG Tablet 50 MG PO ×4 (10:51→21:52)
[2018-05-27 11:06] LABS: HIV - WCH Non-Reactive (Nonreactive)
--- NOTE | 2018-05-27 14:16 | PCM.PROGNOTE ---
<Marquis Moy - Last Filed: 05/27/18 14:20> Patient Problems: Active and Suspected Problems Cellulitis (Acute) MRSA bacteremia (Acute) Subjective: No fever or chills. No nausea/vomiting. Nonproductive cough, no SOB. No CP. No Palp. Pt would prefer to go home and come in for outpatient daily peripheral IVs and IV abx infusions, however IV access may be an issue. He does not want to go to SNF - states he has 5 kids at home he needs to get back to. - Physical Exam General: Alert, Oriented x3, Cooperative, - - disheveled HEENT: Atraumatic, PERRLA, EOMI, Normocephalic Neck: Supple, No JVD, Negative Carotid Bruits Lungs: Clear to auscultation, Normal air movement Cardiovascular: Regular rate, No murmurs Abdomen: Bowel Sounds Present, Soft, Non Tender Extremities: No edema, Capillary Refill Less than 3 Seconds Skin: No rashes, No breakdown Musculoskeletal: No Tenderness to Palpation of Joints or Extremities Neurological: Cranial nerves II-XII grossly intact Psych/Mental Status: Normal Affect, Appropriate, Alert and oriented to time, place, person, mood and affect Vital Signs Temp Pulse Resp BP Pulse Ox 98.8 F 95 18 124/69 H 99 05/27/18 11:51 05/27/18 11:51 05/27/18 11:51 05/27/18 11:51 05/27/18 11:51 Oxygen Delivery Method Room Air Weight: 124 lb 1.924 oz Body Mass Index (BMI) 20.6 Intake and Output for Last 24 Hours 05/25/18 05/26/18 05/27/18 23:59 23:59 23:59 Intake Total 6912 / 6912 6191 / 6191 3554 / 3554 Output Total 5090 / 5090 5415 / 5415 2800 / 2800 Balance 1822 / 1822 776 / 776 754 / 754 Microbiology Past 72 Hours 05/26/18 15:29 Gram Stain - Final Abs - Scalp Wound Culture - Preliminary Staphylococcus aureus 05/24/18 16:41 Bacteria Detection (PCR) - Final Blood Culture (Wb) - Venous Staphylococcus aureus mecA Resistance Marker Blood Culture - Final Staphylococcus aureus 05/24/18 15:00 Blood Culture - Final Blood Culture (Wb) - Neck Meth. resistant Staph. aureus 05/25/18 12:10 Blood Culture - Preliminary Blood Culture (Wb) - Right Hand 05/25/18 12:00 Blood Culture - Preliminary Blood Culture (Wb) - Right Hand Laboratory Tests Past 24 Hrs 05/27/18 05/27/18 05/27/18 06:32 06:32 06:32 Sodium 138 Potassium 4.0 Chloride 104 Carbon Dioxide 23.0 Anion Gap 11 BUN 4 L Creatinine 0.45 L Estim Creat Clear Calc 191.14 Est GFR (MDRD) Af Amer 280 Est GFR (MDRD) Non-Af 232 BUN/Creatinine Ratio 8.8 L Glucose 100 Calcium 7.6 L Vancomycin Trough Hep Bs Antigen Pending Hep B Core Total Ab Pending Hepatitis C Ab (EIA) Pending HCV RNA Quant (PCR) Pending HIV 1&2 Antibody Non-Reactive 05/27/18 13:25 Sodium Potassium Chloride Carbon Dioxide Anion Gap BUN Creatinine Estim Creat Clear Calc Est GFR (MDRD) Af Amer Est GFR (MDRD) Non-Af BUN/Creatinine Ratio Glucose Calcium Vancomycin Trough Pending Hep Bs Antigen Hep B Core Total Ab Hepatitis C Ab (EIA) HCV RNA Quant (PCR) HIV 1&2 Antibody Medical Necessity - Tobacco Use Smoking Status: Current every day smoker Tobacco Use: Cigarettes Assessment/Plan All Active Problems Left leg cellulitis (Resolved) Alcohol withdrawal delirium, acute, hyperactive (Acute) Opioid withdrawal delirium, acute, hyperactive (Acute) Polysubstance (including opioids) dependence, daily use (Acute) Abscess of left axilla (Acute) Abscess of skin of neck (Acute) Cellulitis (Acute) MRSA bacteremia (Acute) 1. Acute sepsis 2/2 MRSA bacteremia 2/2 IVDU - + leukocytosis. TTE neg. Needs CHRISTINE. Continue Vanco. ID following. 2. Right occipital abscess - Dr. Ivy performed bedside debridement 05/26. Continue wound care. 3. IVDU, alcohol abuse - heroin/meth. Monitor for withdrawal. Cannot have PICC. Recently went through inpatient detox and soon after resumed. Continue withdrawal meds. 4. Hx Hepatitis - check CMP, Hep panel pending. HIV screen neg. 5. Tobacco abuse - patch if desired DVT ppx: Early ambulation DC planning: dispo is difficult given likely need for outpatient abx, poor vasculature, IV drug use. This patient was seen by Marquis Moy PA-C under the supervision of Doctor Jasbir. <Jonatan Martell F - Last Filed: 05/27/18 16:53> - Physical Exam Vital Signs Temp Pulse Resp BP Pulse Ox 98.8 F 89 18 124/69 H 99 05/27/18 11:51 05/27/18 15:15 05/27/18 11:51 05/27/18 11:51 05/27/18 11:51 Oxygen Delivery Method Room Air Weight: 124 lb 1.924 oz Body Mass Index (BMI) 20.6 Intake and Output for Last 24 Hours 05/25/18 05/26/18 05/27/18 23:59 23:59 23:59 Intake Total 6912 / 6912 6191 / 6191 3554 / 3554 Output Total 5090 / 5090 5415 / 5415 2800 / 2800 Balance 1822 / 1822 776 / 776 754 / 754 Microbiology Past 72 Hours 05/26/18 15:29 Gram Stain - Final Abs - Scalp Wound Culture - Preliminary Staphylococcus aureus 05/24/18 16:41 Bacteria Detection (PCR) - Final Blood Culture (Wb) - Venous Staphylococcus aureus mecA Resistance Marker Blood Culture - Final Staphylococcus aureus 05/24/18 15:00 Blood Culture - Final Blood Culture (Wb) - Neck Meth. resistant Staph. aureus 05/25/18 12:10 Blood Culture - Preliminary Blood Culture (Wb) - Right Hand 05/25/18 12:00 Blood Culture - Preliminary Blood Culture (Wb) - Right Hand Laboratory Tests Past 24 Hrs 05/27/18 05/27/18 05/27/18 06:32 06:32 06:32 Sodium 138 Potassium 4.0 Chloride 104 Carbon Dioxide 23.0 Anion Gap 11 BUN 4 L Creatinine 0.45 L Estim Creat Clear Calc 191.14 Est GFR (MDRD) Af Amer 280 Est GFR (MDRD) Non-Af 232 BUN/Creatinine Ratio 8.8 L Glucose 100 Calcium 7.6 L Vancomycin Trough Hep Bs Antigen Pending Hep B Core Total Ab Pending Hepatitis C Ab (EIA) Pending HCV RNA Quant (PCR) Pending HIV 1&2 Antibody Non-Reactive 05/27/18 13:25 Sodium Potassium Chloride Carbon Dioxide Anion Gap BUN Creatinine Estim Creat Clear Calc Est GFR (MDRD) Af Amer Est GFR (MDRD) Non-Af BUN/Creatinine Ratio Glucose Calcium Vancomycin Trough 9.4 Hep Bs Antigen Hep B Core Total Ab Hepatitis C Ab (EIA) HCV RNA Quant (PCR) HIV 1&2 Antibody Code Visit Addendum: Dr. Martell I personally examined the patient and reviewed the chart. I agree with the above. 28-year-old male with a past medical history consistent of IV drug use, with his most recent drug use being the day before admission. Presented with right upper extremity pain after injection of heroin. Blood culture was positive for MRSA and he was started on IV vancomycin. He will need further testing to determine course of antibiotics, however he is a very complicated case given the fact that he has very poor veins in his upper extremities and currently has IVs in both of his legs. Also he is not a great candidate for PICC line given his IV drug use. Therefore infectious disease was consulted and their recommendations are appreciated. Inpatient E&M: 04106 Subs Hosp L2
[2018-05-27 14:21] LABS: Vancomycin, Trough Level 9.4 ug/mL (5.0-15.0)
--- NOTE | 2018-05-27 16:00 | PCM.RX.CS ---
Consult Pharmacy has been consulted to manage selected antiobiotic: Vancomycin Type of Consult: Follow-up Suspected Infection: Bacteremia Prior Doses of Antibiotics Received/Current Regimen: Currently on 1250mg iv q8h Labs: Sodium 138 mmol/L (136-145) 05/27/18 06:32 Potassium 4.0 mmol/L (3.5-5.1) 05/27/18 06:32 Chloride 104 mmol/L (98-107) 05/27/18 06:32 Carbon Dioxide 23.0 mmol/L (21.0-32.0) 05/27/18 06:32 Anion Gap 11 (5-15) 05/27/18 06:32 BUN 4 mg/dL (7-18) L 05/27/18 06:32 Creatinine 0.45 mg/dL (0.70-1.30) L 05/27/18 06:32 Est GFR (MDRD) Af Amer 280 mL/min (>60) 05/27/18 06:32 Est GFR (MDRD) Non-Af 232 mL/min (>60) 05/27/18 06:32 BUN/Creatinine Ratio 8.8 RATIO (10-20) L 05/27/18 06:32 Glucose 100 mg/dL (74-106) 05/27/18 06:32 Vancomycin Trough 9.4 ug/mL (5.0-15.0) 05/27/18 13:25 Microbiology: Microbiology 05/26/18 15:29 Abs - Scalp Gram Stain - Final 05/26/18 15:29 Abs - Scalp Wound Culture - Preliminary Staphylococcus aureus 05/24/18 16:41 Blood Culture (Wb) - Venous Bacteria Detection (PCR) - Final Staphylococcus aureus mecA Resistance Marker 05/24/18 16:41 Blood Culture (Wb) - Venous Blood Culture - Final Staphylococcus aureus 05/24/18 15:00 Blood Culture (Wb) - Neck Blood Culture - Final Meth. resistant Staph. aureus 05/25/18 12:10 Blood Culture (Wb) - Right Hand Blood Culture - Preliminary 05/25/18 12:00 Blood Culture (Wb) - Right Hand Blood Culture - Preliminary Weight used for dosin.3 kg Estimated Creatinine Clearance: 180 ml/min Goal Trough: 10-15 mcg/mL Pharmacy Plan for Drug Dosing: Vanco trough today 9.4, up from 3.0. Will increase dose to 1500mg iv q8h and get repeat trough before 4th dose of new regimen. Renal function same. Pharmacy Service will continue to monitor and adjust dosing as required. Follow-Up Labs: Trough Vancomycin - 11.30.18 @2130 before 2200 dose
[2018-05-28] VITALS (12 sets, daily range): BP systolic 96–110; BP diastolic 43–66; PULSE 76–98; RESP 17–18; TEMP 36.7–37.2; O2SAT 96–98
[2018-05-28] MEDS: hydrOXYzine PAM 25 MG Capsule 50 MG PO (03:05)
[2018-05-28] MEDS: 0.9% Normal Saline 1,000 ML 150 ML IV ×4 (04:12→22:42)
[2018-05-28 06:37] LABS: Absolute Neutrophil Count 7.1 X10^3/uL (2.0-7.7); Basophil# 0.07 X10^3/uL; Basophil% 0.6 % (0-1); Eosinophil# 0.41 X10^3/uL; Eosinophils% 3.4 % (0-5); Hematocrit 30.6 % (40-54); Hemoglobin 10.2 g/dl (13.0-16.5); Lymphocyte % 27.1 % (19-41); Mean Corp Hgb Conc 33.3 g/gl (32-36); Mean Corpuscular Hgb 29.3 pg (27.0-32.0); Mean Corpuscular Volume 87.9 fL (80-94); Neutrophil % 58.4 % (47-70); Platelet Count 338 K/mm3 (150-450); RBC Distribution Width CV 13.8 % (11.6-14.6); RBC Distribution Width SD 43.7 fl (35.1-43.9); Red Blood Count 3.48 M/mm3 (4.6-6.2); White Blood Count 12.2 K/mm3 (4.4-11.0)
[2018-05-28 06:40] LABS: POSITIVE COUNT NO; POSITIVE DIFFERENTIAL NO; POSITIVE MORPHOLOGY NO
[2018-05-28 06:58] LABS: ALB/GLOB Ratio 0.4 RATIO (0.9-2.4); AST(SGOT) 30 U/L (15-37); Alanine Aminotransfer ALT/SGPT 30 U/L (16-61); Albumin, Serum 1.8 g/dL (3.2-5.0); Alkaline Phosphatase 68 U/L (45-117); Anion Gap 8 (5-15); BUN 7 mg/dL (7-18); BUN/Creat Ratio 11.5 RATIO (10-20); Calcium,Total 7.9 mg/dL (8.5-10.1); Chloride 106 mmol/L (98-107); Creatinine, Serum 0.61 mg/dL (0.70-1.30); EST Glomerular Filtration Rate 165 mL/min (>60); Est Glom Filt Rate - Afr Amer 200 mL/min (>60); Estimated Creatinine Clearance 141.01 ml/min; Globulin 4.6 g/dL (2.2-4.2); Glucose 118 mg/dL (74-106); Potassium 3.9 mmol/L (3.5-5.1); Protein, Total 6.4 g/dL (6.4-8.2); Sodium Level 138 mmol/L (136-145)
--- NOTE | 2018-05-28 07:55 | PCM.PN.SRG ---
Patient Problems: Active and Suspected Problems Cellulitis (Acute) MRSA bacteremia (Acute) Subjective: Patient is more alert today, posterior scalp wound dressed - Physical Exam General: Alert, Oriented x3, Cooperative, No apparent distress Lungs: Normal air movement Skin: - - right occiput wound dressed with aquacel AG Vital Signs Temp Pulse Resp BP Pulse Ox 98.3 F 76 18 108/66 96 05/28/18 05:39 05/28/18 05:39 05/28/18 05:39 05/28/18 05:39 05/28/18 02:13 Oxygen Delivery Method Room Air Weight: 124 lb 1.924 oz Body Mass Index (BMI) 20.6 Intake and Output for Last 24 Hours 05/26/18 05/27/18 05/28/18 23:59 23:59 23:59 Intake Total 6191 / 6191 7410 / 7410 1047 / 1047 Output Total 5415 / 5415 6050 / 6050 950 / 950 Balance 776 / 776 1360 / 1360 97 / 97 Microbiology Past 72 Hours 05/26/18 15:29 Gram Stain - Final Abs - Scalp Wound Culture - Preliminary Staphylococcus aureus 05/24/18 16:41 Bacteria Detection (PCR) - Final Blood Culture (Wb) - Venous Staphylococcus aureus mecA Resistance Marker Blood Culture - Final Staphylococcus aureus 05/24/18 15:00 Blood Culture - Final Blood Culture (Wb) - Neck Meth. resistant Staph. aureus 05/25/18 12:10 Blood Culture - Preliminary Blood Culture (Wb) - Right Hand 05/25/18 12:00 Blood Culture - Preliminary Blood Culture (Wb) - Right Hand Laboratory Tests Past 24 Hrs 05/27/18 05/27/18 05/28/18 06:32 13:25 06:20 WBC 12.2 H RBC 3.48 L Hgb 10.2 L Hct 30.6 L MCV 87.9 MCH 29.3 MCHC 33.3 RDW 13.8 RDW Differential 43.7 Plt Count 338 MPV 11.0 Immature Gran % (Auto) 1.500 H Neut % (Auto) 58.4 Lymph % (Auto) 27.1 [place] % (Auto) 9.0 Eos % (Auto) 3.4 Baso % (Auto) 0.6 Absolute Neuts (auto) 7.1 Absolute Lymphs (auto) 3.30 Total Counted Not Reportable Sodium Potassium Chloride Carbon Dioxide Anion Gap BUN Creatinine Estim Creat Clear Calc Est GFR (MDRD) Af Amer Est GFR (MDRD) Non-Af BUN/Creatinine Ratio Glucose Calcium Total Bilirubin AST ALT Alkaline Phosphatase Total Protein Albumin Globulin Albumin/Globulin Ratio Vancomycin Trough 9.4 HIV 1&2 Antibody Non-Reactive 05/28/18 06:20 WBC RBC Hgb Hct MCV MCH MCHC RDW RDW Differential Plt Count MPV Immature Gran % (Auto) Neut % (Auto) Lymph % (Auto) [place] % (Auto) Eos % (Auto) Baso % (Auto) Absolute Neuts (auto) Absolute Lymphs (auto) Total Counted Sodium 138 Potassium 3.9 Chloride 106 Carbon Dioxide 24.0 Anion Gap 8 BUN 7 Creatinine 0.61 L Estim Creat Clear Calc 141.01 Est GFR (MDRD) Af Amer 200 Est GFR (MDRD) Non-Af 165 BUN/Creatinine Ratio 11.5 Glucose 118 H Calcium 7.9 L Total Bilirubin 0.20 AST 30 ALT 30 Alkaline Phosphatase 68 Total Protein 6.4 Albumin 1.8 L Globulin 4.6 H Albumin/Globulin Ratio 0.4 L Vancomycin Trough HIV 1&2 Antibody Medical Necessity - Tobacco Use Smoking Status: Current every day smoker Tobacco Use: Cigarettes Assessment/Plan All Active Problems Left leg cellulitis (Resolved) Alcohol withdrawal delirium, acute, hyperactive (Acute) Opioid withdrawal delirium, acute, hyperactive (Acute) Polysubstance (including opioids) dependence, daily use (Acute) Abscess of left axilla (Acute) Abscess of skin of neck (Acute) Cellulitis (Acute) MRSA bacteremia (Acute) 28 y/o male IV drug user (heroin), MRSA bacteremia, right occiput abscess 1. Continue wound care to right occiput wound. 2. abx per ID Mary Ivy M.D. Pager: [phone] [facility] [address] [place] [address], [facility], [address] [place] [address] Office: [phone]
[2018-05-28] MEDS: Multivitamins,Therapeutic Tablet 1 TABLET PO (08:42)
[2018-05-28] MEDS: Thiamine Hydrochloride 100 MG Tablet PO (08:42)
[2018-05-28] MEDS: Folic Acid 1 MG Tablet PO (08:42)
[2018-05-28] MEDS: QUEtiapine 25 MG Tablet 50 MG PO ×4 (10:35→21:00)
--- NOTE | 2018-05-28 11:45 | CASEMGMT ---
SW met with patient, introduced self and role at [facility]. Patient was more awake this time. SW asked if he needs any resources for drug treatment. He said he does not. SW asked, Not interested in quitting? He said, No. He then asked about the Vivitrol shot. SW told him SW can check to see who offers this and he said he already knows. [facility] offers it. SW told him he should follow up with [facility] to see if he is eligible for their program. Estela ELLSWORTH MSW
--- NOTE | 2018-05-28 12:41 | NURSING ---
wound photo: posterior head
--- NOTE | 2018-05-28 13:01 | PN.ID_ITS ---
Patient Problems: Active and Suspected Problems Cellulitis (Acute) MRSA bacteremia (Acute) Subjective: Head feeling better, no fever, no n/v/d. - Physical Exam General: Alert, Cooperative, No apparent distress Lungs: Clear to auscultation, Normal air movement Cardiovascular: Regular rate, Regular Rhythm Abdomen: Soft, Non Tender, Non-Distended Skin: No rashes Vital Signs Temp Pulse Resp BP Pulse Ox 98.9 F 92 17 104/56 L 97 05/28/18 08:40 05/28/18 11:33 05/28/18 08:40 05/28/18 08:40 05/28/18 08:40 Oxygen Delivery Method Room Air Weight: 56.3 kg Body Mass Index (BMI) 20.6 Intake and Output for Last 24 Hours 05/26/18 05/27/18 05/28/18 23:59 23:59 23:59 Intake Total 6191 / 6191 7410 / 7410 3629 / 3629 Output Total 5415 / 5415 6050 / 6050 2950 / 2950 Balance 776 / 776 1360 / 1360 679 / 679 Microbiology Past 72 Hours 05/26/18 13:40 Blood Culture - Preliminary Blood Culture (Wb) - Arm Right No growth in 48 hours. 05/26/18 15:29 Gram Stain - Final Abs - Scalp Wound Culture - Final Meth. resistant Staph. aureus Anaerobic Culture - Preliminary Checking for anaerobes, further studies to follow. 05/24/18 15:00 Blood Culture - Final Blood Culture (Wb) - Neck Meth. resistant Staph. aureus 05/24/18 16:41 Bacteria Detection (PCR) - Final Blood Culture (Wb) - Venous Staphylococcus aureus mecA Resistance Marker Blood Culture - Final Staphylococcus aureus 05/25/18 12:10 Blood Culture - Preliminary Blood Culture (Wb) - Right Hand 05/25/18 12:00 Blood Culture - Preliminary Blood Culture (Wb) - Right Hand Laboratory Tests Past 24 Hrs 05/27/18 05/28/18 05/28/18 13:25 06:20 06:20 WBC 12.2 H RBC 3.48 L Hgb 10.2 L Hct 30.6 L MCV 87.9 MCH 29.3 MCHC 33.3 RDW 13.8 RDW Differential 43.7 Plt Count 338 MPV 11.0 Immature Gran % (Auto) 1.500 H Neut % (Auto) 58.4 Lymph % (Auto) 27.1 [place] % (Auto) 9.0 Eos % (Auto) 3.4 Baso % (Auto) 0.6 Absolute Neuts (auto) 7.1 Absolute Lymphs (auto) 3.30 Total Counted Not Reportable Sodium 138 Potassium 3.9 Chloride 106 Carbon Dioxide 24.0 Anion Gap 8 BUN 7 Creatinine 0.61 L Estim Creat Clear Calc 141.01 Est GFR (MDRD) Af Amer 200 Est GFR (MDRD) Non-Af 165 BUN/Creatinine Ratio 11.5 Glucose 118 H Calcium 7.9 L Total Bilirubin 0.20 AST 30 ALT 30 Alkaline Phosphatase 68 Total Protein 6.4 Albumin 1.8 L Globulin 4.6 H Albumin/Globulin Ratio 0.4 L Vancomycin Trough 9.4 Medical Necessity - Tobacco Use Smoking Status: Current every day smoker Tobacco Use: Cigarettes Route of nutrition/ use of supplements: [] Nutritional Intake: [] IV Site: [] Frye Catheter: [] - Assessment/Plan Antibiotics: [] Assessment/Plan: [] Active and Suspected Problems Cellulitis (Acute) MRSA bacteremia from posterior scalp abscess - I&D done of scalp abscess 05/[address] Ivy, wound cx with MRSA. TTE showed no veg. Repeat bcx today. Continue iv vanc. No sign of metastatic infection on exam. Bcx neg at 48 hours. Given so far rapid clearing of bcx even with low vanc trough, good source control, negative TTE, no systemic symptoms of infection, and high risk of complications with picc placement given active IVDU, recommend home tomorrow on po linezolid 600mg bid with stop date 06/08/18. Counselled him re:life threatening nature of this infection if not properly treated, and he reports he wants to stay off heroin. IVDU with h/o hep C - neg hiv. Pending hep C pcr, hep b studies. Will follow, d/w Dr. Martell.
--- NOTE | 2018-05-28 13:18 | PCM.PROGNOTE ---
<Marquis Moy - Last Filed: 05/28/18 13:18> Patient Problems: Active and Suspected Problems Cellulitis (Acute) MRSA bacteremia (Acute) Subjective: Pt resting comfortably in bed no complaints. No fever/chills. No withdrawal symptoms. - Physical Exam General: Alert, Oriented x3, Cooperative HEENT: Atraumatic, PERRLA, EOMI, Normocephalic Neck: Supple, No JVD, Negative Carotid Bruits Lungs: Clear to auscultation, Normal air movement Cardiovascular: Regular rate, No murmurs Abdomen: Bowel Sounds Present, Soft, Non Tender Extremities: No edema, Capillary Refill Less than 3 Seconds Skin: No rashes, No breakdown Musculoskeletal: No Tenderness to Palpation of Joints or Extremities Neurological: Cranial nerves II-XII grossly intact Psych/Mental Status: Normal Affect, Appropriate, Alert and oriented to time, place, person, mood and affect Vital Signs Temp Pulse Resp BP Pulse Ox 98.9 F 92 17 104/56 L 97 05/28/18 08:40 05/28/18 11:33 05/28/18 08:40 05/28/18 08:40 05/28/18 08:40 Oxygen Delivery Method Room Air Weight: 124 lb 1.924 oz Body Mass Index (BMI) 20.6 Intake and Output for Last 24 Hours 05/26/18 05/27/18 05/28/18 23:59 23:59 23:59 Intake Total 6191 / 6191 7410 / 7410 3629 / 3629 Output Total 5415 / 5415 6050 / 6050 2950 / 2950 Balance 776 / 776 1360 / 1360 679 / 679 Microbiology Past 72 Hours 05/26/18 13:40 Blood Culture - Preliminary Blood Culture (Wb) - Arm Right No growth in 48 hours. 05/26/18 15:29 Gram Stain - Final Abs - Scalp Wound Culture - Final Meth. resistant Staph. aureus Anaerobic Culture - Preliminary Checking for anaerobes, further studies to follow. 05/24/18 15:00 Blood Culture - Final Blood Culture (Wb) - Neck Meth. resistant Staph. aureus 05/24/18 16:41 Bacteria Detection (PCR) - Final Blood Culture (Wb) - Venous Staphylococcus aureus mecA Resistance Marker Blood Culture - Final Staphylococcus aureus 05/25/18 12:10 Blood Culture - Preliminary Blood Culture (Wb) - Right Hand 05/25/18 12:00 Blood Culture - Preliminary Blood Culture (Wb) - Right Hand Laboratory Tests Past 24 Hrs 05/27/18 05/28/18 05/28/18 13:25 06:20 06:20 WBC 12.2 H RBC 3.48 L Hgb 10.2 L Hct 30.6 L MCV 87.9 MCH 29.3 MCHC 33.3 RDW 13.8 RDW Differential 43.7 Plt Count 338 MPV 11.0 Immature Gran % (Auto) 1.500 H Neut % (Auto) 58.4 Lymph % (Auto) 27.1 [place] % (Auto) 9.0 Eos % (Auto) 3.4 Baso % (Auto) 0.6 Absolute Neuts (auto) 7.1 Absolute Lymphs (auto) 3.30 Total Counted Not Reportable Sodium 138 Potassium 3.9 Chloride 106 Carbon Dioxide 24.0 Anion Gap 8 BUN 7 Creatinine 0.61 L Estim Creat Clear Calc 141.01 Est GFR (MDRD) Af Amer 200 Est GFR (MDRD) Non-Af 165 BUN/Creatinine Ratio 11.5 Glucose 118 H Calcium 7.9 L Total Bilirubin 0.20 AST 30 ALT 30 Alkaline Phosphatase 68 Total Protein 6.4 Albumin 1.8 L Globulin 4.6 H Albumin/Globulin Ratio 0.4 L Vancomycin Trough 9.4 Medical Necessity - Tobacco Use Smoking Status: Current every day smoker Tobacco Use: Cigarettes Assessment/Plan All Active Problems Left leg cellulitis (Resolved) Alcohol withdrawal delirium, acute, hyperactive (Acute) Opioid withdrawal delirium, acute, hyperactive (Acute) Polysubstance (including opioids) dependence, daily use (Acute) Abscess of left axilla (Acute) Abscess of skin of neck (Acute) Cellulitis (Acute) MRSA bacteremia (Acute) 1. Acute sepsis 2/2 MRSA bacteremia 2/2 IVDU - + leukocytosis. TTE neg. Needs CHRISTINE. Continue Vanco. ID following. Transition to zyvox as o/p. 2. Right occipital abscess - Dr. Ivy performed bedside debridement 05/26. Continue wound care. 3. IVDU, alcohol abuse - heroin/meth. Monitor for withdrawal. Cannot have PICC. Recently went through inpatient detox and soon after resumed. Continue withdrawal meds. 4. Hx Hepatitis - check CMP, Hep panel pending. HIV screen neg. 5. Tobacco abuse - patch if desired DVT ppx: Early ambulation DC planning: pt will go on zyvox tmrw if blood cultures remain negative. This patient was seen by Marquis Moy PA-C under the supervision of Doctor Jasbir. <Jonatan Martell F - Last Filed: 05/28/18 14:24> - Physical Exam Vital Signs Temp Pulse Resp BP Pulse Ox 98.9 F 92 17 104/56 L 97 05/28/18 08:40 05/28/18 11:33 05/28/18 08:40 05/28/18 08:40 05/28/18 08:40 Oxygen Delivery Method Room Air Weight: 124 lb 1.924 oz Body Mass Index (BMI) 20.6 Intake and Output for Last 24 Hours 05/26/18 05/27/18 05/28/18 23:59 23:59 23:59 Intake Total 6191 / 6191 7410 / 7410 3629 / 3629 Output Total 5415 / 5415 6050 / 6050 2950 / 2950 Balance 776 / 776 1360 / 1360 679 / 679 Microbiology Past 72 Hours 05/26/18 13:40 Blood Culture - Preliminary Blood Culture (Wb) - Arm Right No growth in 48 hours. 05/26/18 15:29 Gram Stain - Final Abs - Scalp Wound Culture - Final Meth. resistant Staph. aureus Anaerobic Culture - Preliminary Checking for anaerobes, further studies to follow. 05/24/18 15:00 Blood Culture - Final Blood Culture (Wb) - Neck Meth. resistant Staph. aureus 05/24/18 16:41 Bacteria Detection (PCR) - Final Blood Culture (Wb) - Venous Staphylococcus aureus mecA Resistance Marker Blood Culture - Final Staphylococcus aureus 05/25/18 12:10 Blood Culture - Preliminary Blood Culture (Wb) - Right Hand 05/25/18 12:00 Blood Culture - Preliminary Blood Culture (Wb) - Right Hand Laboratory Tests Past 24 Hrs 05/27/18 05/28/18 05/28/18 13:25 06:20 06:20 WBC 12.2 H RBC 3.48 L Hgb 10.2 L Hct 30.6 L MCV 87.9 MCH 29.3 MCHC 33.3 RDW 13.8 RDW Differential 43.7 Plt Count 338 MPV 11.0 Immature Gran % (Auto) 1.500 H Neut % (Auto) 58.4 Lymph % (Auto) 27.1 [place] % (Auto) 9.0 Eos % (Auto) 3.4 Baso % (Auto) 0.6 Absolute Neuts (auto) 7.1 Absolute Lymphs (auto) 3.30 Total Counted Not Reportable Sodium 138 Potassium 3.9 Chloride 106 Carbon Dioxide 24.0 Anion Gap 8 BUN 7 Creatinine 0.61 L Estim Creat Clear Calc 141.01 Est GFR (MDRD) Af Amer 200 Est GFR (MDRD) Non-Af 165 BUN/Creatinine Ratio 11.5 Glucose 118 H Calcium 7.9 L Total Bilirubin 0.20 AST 30 ALT 30 Alkaline Phosphatase 68 Total Protein 6.4 Albumin 1.8 L Globulin 4.6 H Albumin/Globulin Ratio 0.4 L Vancomycin Trough 9.4 Code Visit Addendum: Dr. Martell I personally examined the patient and reviewed the chart. I agree with the above. 28-year-old male known IV drug user presenting with MRSA bacteremia likely from a posterior scalp abscess. He was started on IV vancomycin and had serial blood cultures, the set from May 26 are still negative therefore we will plan to continue IV vancomycin tonight and then he can be discharged tomorrow morning on p.o. Zyvox for 11 days. He is not a candidate for a PICC given his IV drug use. Inpatient E&M: 38278 Subs Hosp L2
--- NOTE | 2018-05-28 15:38 | CASEMGMT ---
Addendum entered by Liliam Carnes 05/28/18 16:30: Call placed to prior auth dept @ to confirm they received the PA form. They stated it takes 4-6 hrs for it to be uploaded in the system to confirm they received it and asked for someone to call them back tomorrow morning to confirm. They also stated that Prior Auth can take up to 48-72 hrs. NAIN MAYO inquired if prior auth could be obtained via phone conversation d/t anticipated discharge is tomorrow 05/29/18. They stated Zyvox is required to be done via fax. They stated [place] will cover a 3-day emergency supply while prior auth is being processed. Pt can [employer] the 3-day supply @ [facility] and then return to [employer] the remainder after prior auth is obtained. NAIN MAYO placed call to [facility]. [facility] states someone will need to notify them once prior auth is obtained so they can process the order. Pt made aware to sp[employer] picker his prescription at [facility] when he is discharged and made aware that he may only get a 3-day supply initially. NAIN MAYO instructed pt on the importance of not missing any doses and to make sure he returns to the pharmacy to [employer] picker the remainder of the prescription if he is unable to get it all initially. Pt voiced understanding. Pt also informed that [facility] states they do not have his insurance/prescription insurance on file and that he should take this information to [facility] when he goes to spanish [employer] picker his prescriptions. Pt voices understanding. Pt made aware if he has any questions, needs, or concerns to have CM notified. Original Note: NAIN MAYO NOTE: Pt to discharge home on Zyvox. Prior Auth Required. Prior Auth form faxed to Matt @ . Awaiting response. Cuate GRAY RN, CM
[2018-05-28 23:16] LABS: Vancomycin, Trough Level 17.7 ug/mL (5.0-15.0)
--- NOTE | 2018-05-29 00:31 | PCM.RX.CS ---
Consult Pharmacy has been consulted to manage selected antiobiotic: Vancomycin Type of Consult: Follow-up Suspected Infection: Sepsis Prior Doses of Antibiotics Received/Current Regimen: Medications Vancomycin HCl 1,500 mg/ (Sodium Chloride) 530 mls @ 250 mls/hr IV Q8H MICHEL Last Admin: 05/28/18 22:36 Dose: 250 mls/hr Labs: Sodium 138 mmol/L (136-145) 05/28/18 06:20 Potassium 3.9 mmol/L (3.5-5.1) 05/28/18 06:20 Chloride 106 mmol/L (98-107) 05/28/18 06:20 Carbon Dioxide 24.0 mmol/L (21.0-32.0) 05/28/18 06:20 Anion Gap 8 (5-15) 05/28/18 06:20 BUN 7 mg/dL (7-18) 05/28/18 06:20 Creatinine 0.61 mg/dL (0.70-1.30) L 05/28/18 06:20 Est GFR (MDRD) Af Amer 200 mL/min (>60) 05/28/18 06:20 Est GFR (MDRD) Non-Af 165 mL/min (>60) 05/28/18 06:20 BUN/Creatinine Ratio 11.5 RATIO (10-20) 05/28/18 06:20 Glucose 118 mg/dL (74-106) H 05/28/18 06:20 Vancomycin Trough 17.7 ug/mL (5.0-15.0) H 05/28/18 21:30 Microbiology: Microbiology 05/26/18 13:40 Blood Culture (Wb) - Arm Right Blood Culture - Preliminary No growth in 48 hours. 05/26/18 15:29 Abs - Scalp Gram Stain - Final 05/26/18 15:29 Abs - Scalp Wound Culture - Final Meth. resistant Staph. aureus 05/26/18 15:29 Abs - Scalp Anaerobic Culture - Preliminary Checking for anaerobes, further studies to follow. 05/24/18 15:00 Blood Culture (Wb) - Neck Blood Culture - Final Meth. resistant Staph. aureus 05/24/18 16:41 Blood Culture (Wb) - Venous Bacteria Detection (PCR) - Final Staphylococcus aureus mecA Resistance Marker 05/24/18 16:41 Blood Culture (Wb) - Venous Blood Culture - Final Staphylococcus aureus 05/25/18 12:10 Blood Culture (Wb) - Right Hand Blood Culture - Preliminary 05/25/18 12:00 Blood Culture (Wb) - Right Hand Blood Culture - Preliminary Weight used for dosin.3 kg Estimated Creatinine Clearance: 141 Goal Trough: 10-15 mcg/mL Pharmacy Plan for Drug Dosing: Trough level returned at 17.7. Will continue at current dose of 1500mg q8h, but will monitor trough again in 4 doses. Pharmacy Service will continue to monitor and adjust dosing as required. Follow-Up Labs: Trough Vancomycin Labs to be done on [date and time ordered]: 05/29/18 @[id number]
[2018-05-29 02:40] VITALS: BP 99/47; PULSE 89; RESP 18; TEMP 37.3; O2SAT 97
[2018-05-29 04:39] VITALS: PULSE 91
[2018-05-29] MEDS: 0.9% Normal Saline 1,000 ML 150 ML IV (05:40)
[2018-05-29 06:15] LABS: Absolute Lymphocyte Count 3.37 X10^3/ul (0.83-4.51); Absolute Neutrophil Count 7.1 X10^3/uL (2.0-7.7); Basophil# 0.04 X10^3/uL; Basophil% 0.3 % (0-1); Eosinophil# 0.39 X10^3/uL; Eosinophils% 3.2 % (0-5); Hemoglobin 10.4 g/dl (13.0-16.5); Lymphocyte # 3.37 X10^3/ul (4.0); Lymphocyte % 27.9 % (19-41); Mean Corp Hgb Conc 32.5 g/gl (32-36); Mean Corpuscular Hgb 28.3 pg (27.0-32.0); Mean Corpuscular Volume 87.2 fL (80-94); Mean Platelet Vol. 10.4 fl (6.2-12.0); Monocyte# 1.04 X10^3/uL; Monocyte% 8.6 % (0-10); Neutrophil # 7.09 X10^3/uL (2.7-7.7); Neutrophil % 58.6 % (47-70); Platelet Count 420 K/mm3 (150-450); RBC Distribution Width SD 44.8 fl (35.1-43.9); Red Blood Count 3.67 M/mm3 (4.6-6.2); White Blood Count 12.1 K/mm3 (4.4-11.0)
[2018-05-29 06:16] LABS: POSITIVE COUNT NO; POSITIVE DIFFERENTIAL NO; POSITIVE MORPHOLOGY NO
[2018-05-29 06:56] VITALS: PULSE 90
--- NOTE | 2018-05-29 07:31 | PCM.PN.SRG ---
Patient Problems: Active and Suspected Problems Cellulitis (Acute) MRSA bacteremia (Acute) Subjective: Patient has no complaints at this time. Objective: Dressing is clean in the posterior scalp no signs of tenderness. No overt cellulitis is identified. - Physical Exam Vital Signs Temp Pulse Resp BP Pulse Ox 99.2 F H 91 18 99/47 L 97 05/29/18 02:40 05/29/18 04:39 05/29/18 02:40 05/29/18 02:40 05/29/18 02:40 Oxygen Delivery Method Room Air Weight: 124 lb 1.924 oz Body Mass Index (BMI) 20.6 Intake and Output for Last 24 Hours 05/27/18 05/28/18 05/29/18 23:59 23:59 23:59 Intake Total 7410 / 7410 6809 / 6809 2114 / 2114 Output Total 6050 / 6050 5000 / 5000 1650 / 1650 Balance 1360 / 1360 1809 / 1809 464 / 464 Microbiology Past 72 Hours 05/26/18 13:40 Blood Culture - Preliminary Blood Culture (Wb) - Arm Right No growth in 48 hours. 05/26/18 15:29 Gram Stain - Final Abs - Scalp Wound Culture - Final Meth. resistant Staph. aureus Anaerobic Culture - Preliminary Checking for anaerobes, further studies to follow. 05/24/18 15:00 Blood Culture - Final Blood Culture (Wb) - Neck Meth. resistant Staph. aureus 05/24/18 16:41 Bacteria Detection (PCR) - Final Blood Culture (Wb) - Venous Staphylococcus aureus mecA Resistance Marker Blood Culture - Final Staphylococcus aureus 05/25/18 12:10 Blood Culture - Preliminary Blood Culture (Wb) - Right Hand 05/25/18 12:00 Blood Culture - Preliminary Blood Culture (Wb) - Right Hand Laboratory Tests Past 24 Hrs 05/28/18 05/29/18 21:30 05:35 WBC 12.1 H RBC 3.67 L Hgb 10.4 L Hct 32.0 L MCV 87.2 MCH 28.3 MCHC 32.5 RDW 14.0 RDW Differential 44.8 H Plt Count 420 MPV 10.4 Immature Gran % (Auto) 1.400 H Neut % (Auto) 58.6 Lymph % (Auto) 27.9 [place] % (Auto) 8.6 Eos % (Auto) 3.2 Baso % (Auto) 0.3 Absolute Neuts (auto) 7.1 Absolute Lymphs (auto) 3.37 Total Counted Not Reportable Vancomycin Trough 17.7 H Medical Necessity - Tobacco Use Smoking Status: Current every day smoker Tobacco Use: Cigarettes Assessment/Plan All Active Problems Left leg cellulitis (Resolved) Alcohol withdrawal delirium, acute, hyperactive (Acute) Opioid withdrawal delirium, acute, hyperactive (Acute) Polysubstance (including opioids) dependence, daily use (Acute) Abscess of left axilla (Acute) Abscess of skin of neck (Acute) Cellulitis (Acute) MRSA bacteremia (Acute) Patient may be discharged from surgical standpoint follow-up with Dr. Barker in the office
--- NOTE | 2018-05-29 08:21 | PCM.DC ---
- Discharge Diagnoses Current Active Problems: Current Active and Chronic Problems Alcohol abuse (Chronic) Cellulitis (Acute) MRSA bacteremia (Acute) You will use the following diet at home:: No restrictions, Other - no alcohol Your food should be the consistency of: Regular Your liquids should be the consistency of: Regular/Thin Discharge Activity: Return to Normal Activity Additional Instructions: aquacel AG dressings daily. Allergies/Adverse Reactions: Allergies naloxone [From Suboxone] Allergy (Verified 05/24/18 17:42) makes my mouth go home buprenorphine [From Suboxone] Adverse Reaction (Verified 05/24/18 17:48) makes my mouth go numb Pt states ok to take subutex Medications to take at Discharge Clonidine HCl [Catapres] 0.1 mg PO DAILY PRN 05/24/18 Quetiapine Fumarate [Seroquel] 50 mg PO 4X/DAY 05/24/18 Linezolid [Zyvox] 600 mg PO Q12H #22 tablet 05/28/18 The following prescriptions were given: Linezolid [Zyvox] 600 mg PO Q12H #22 tablet Primary Care Physician: Care Physician,No Primary [Primary Care Provider] - Please follow up with your Primary Care Physician in: 1-2 weeks Test Results: Test results from this visit will be discussed in further detail at your follow-up appointment, if applicable. Please Follow Up With: Mary Ivy MD When: 1 week Please Follow Up With: Lonnie Brown MD When: 2 weeks Proposed Discharge Date: 05/29/18
--- NOTE | 2018-05-29 08:25 | DCINST_ITS ---
- Discharge Diagnoses Current Active Problems: Current Active and Chronic Problems Alcohol abuse (Chronic) Cellulitis (Acute) MRSA bacteremia (Acute) You will use the following diet at home:: No restrictions, Other - no alcohol Your food should be the consistency of: Regular Your liquids should be the consistency of: Regular/Thin Discharge Activity: Return to Normal Activity Additional Instructions: aquacel AG dressings daily. Allergies/Adverse Reactions: Allergies naloxone [From Suboxone] Allergy (Verified 05/24/18 17:42) makes my mouth go home buprenorphine [From Suboxone] Adverse Reaction (Verified 05/24/18 17:48) makes my mouth go numb Pt states ok to take subutex Medications to take at Discharge Clonidine HCl [Catapres] 0.1 mg PO DAILY PRN 05/24/18 Quetiapine Fumarate [Seroquel] 50 mg PO 4X/DAY 05/24/18 Linezolid [Zyvox] 600 mg PO Q12H #22 tablet 05/28/18 The following prescriptions were given: Linezolid [Zyvox] 600 mg PO Q12H #22 tablet Primary Care Physician: Care Physician,No Primary [Primary Care Provider] - Please follow up with your Primary Care Physician in: 1-2 weeks Test Results: Test results from this visit will be discussed in further detail at your follow- up appointment, if applicable. Please Follow Up With: Mary Ivy MD When: 1 week Please Follow Up With: Lonnie Brown MD When: 2 weeks Proposed Discharge Date: 05/29/18
[2018-05-29 08:34] VITALS: BP 117/60; PULSE 90; RESP 16; TEMP 36.9; O2SAT 97
[2018-05-29] MEDS: Thiamine Hydrochloride 100 MG Tablet PO (08:45)
[2018-05-29] MEDS: Multivitamins,Therapeutic Tablet 1 TABLET PO (08:45)
[2018-05-29] MEDS: Folic Acid 1 MG Tablet PO (08:45)
[2018-05-29] MEDS: QUEtiapine 25 MG Tablet 50 MG PO (08:45)
[2018-05-29 12:06] LABS: HCV Quant. RNA PCR 882000 IU/mL (.); HEPATITIS B SURFACE AG Negative (Negative)
--- NOTE | 2018-05-29 12:10 | CM.UR ---
This 11:14 spoke with [facility] to check status on prior authorization of zyvox. Was alerted that the request was denied due to lack of ID physician referral and documentation of + culture results received by them. Faxed both to them at 11:39am to fax number [phone] with tracking number: [id number] per the information given to me by the person that I spoke with. Sacha Ibarra RN, CCM.
[2018-05-29 14:21] LABS: HCV log 10 5.945 (.); Hep C Antibodies >11.0 s/co ratio (0.0-0.9); Hepatitis B Core Ab Total Negative (Negative)
--- NOTE | 2018-05-29 14:22 | DS.PCM_ITS ---
<Marquis Moy - Last Filed: 05/29/18 14:22> Discharge Date and Diagnosis Date of Admission: 05/24/18 Date of Discharge: 05/29/18 - Primary Discharge Diagnosis Sepsis, bacteremia, 2/2 MRSA, IV drug use, scalp abscess normocytic anemia Meth, heroin, alcohol abuse Tobacco abuse - Secondary Discharge Diagnosis Chronic Problems Tobacco use (Chronic) IV drug user (Chronic) Heroin abuse (Chronic) Methamphetamine abuse (Chronic) Adderall use disorder, mild, abuse (Chronic) Alcohol abuse (Chronic) Hospital Course and Treatment Imaging Results: Echo: Interpretation Summary The study was technically difficult. Contrast injection was performed. Left ventricular systolic function is normal. The estimated ejection fraction is 70 %. Mild focal mitral valve calcification of the anterior leaflet. Trivial mitral valve insufficiency. Trivial tricuspid valve insufficiency. Unable to estimate RV systolic pressure/pulmonary artery pressure due to technically difficult study. Diastolic function is indeterminate. Consultations 05/27/18 05:22 Consult: Onc/Wound/frame gate mortiser operator Routine Comment: Reason for Consult:: Abscess on back of head that was drained Operations: None Procedures: 2-D Echocardiogram Summary of Care Provided: Hospital course: The patient is a 28 year old M with past medical history of IV heroin and meth abuse, alcohol abuse, tobacco abuse, who presented to the emergency room with chief complaint of pain in his right arm where he was injecting IV drugs. He woke up with the pain, came to the emergency room, was found to be tachycardic and with leukocytosis of 15,000. Several months prior he was admitted to the hospital for IV drug use detox. Unfortunately he went back to using. He also drinks approximately a pint of alcohol daily. He was admitted to the PCU for sepsis and cellulitis placed on IV Vanco and Zosyn. Blood cultures were drawn and grew out MRSA. He had an abscess on his posterior scalp and general surgery was consulted. They did a bedside debridement of this and sent cultures which also grew MRSA. He was placed on Subutex and Librium tapers for alcohol and opioid withdrawal. Infectious disease was consulted for guidance on antibiotic therapy. An echocardiogram was obtained which was negative. The patient was not a candidate for home IV antibiotic therapy given his ongoing IV drug use. He also has very poor circulation in his arms and required IVs in his legs due to his poor access. Because of this is a poor candidate for coming in daily for peripheral IVs for clearing his bacteremia. It was felt that oral home Zyvox therapy would be most appropriate. This was arranged for him. After his blood cultures became negative he was discharged home in stable condition. He will be on Zyvox until June 19 and will need to follow-up with general surgery, his PCP for which he was given a list of local doctors, and with infectious disease. This patient was seen by Marquis Moy PA-C under the supervision of Doctor Jasbir. [] - Physical Exam General: Alert, Oriented x3, Cooperative HEENT: Atraumatic, PERRLA, EOMI, Normocephalic Neck: Supple, No JVD, Negative Carotid Bruits Lungs: Clear to auscultation, Normal air movement Cardiovascular: Regular rate, No murmurs Abdomen: Bowel Sounds Present, Soft, Non Tender Extremities: No edema, Capillary Refill Less than 3 Seconds Skin: No rashes, No breakdown, - - Posterior scalp wound dressed appropriately. Musculoskeletal: No Tenderness to Palpation of Joints or Extremities Neurological: Cranial nerves II-XII grossly intact Psych/Mental Status: Normal Affect, Appropriate Vital Signs Temp Pulse Resp BP Pulse Ox 98.5 F 90 16 117/60 97 05/29/18 08:34 05/29/18 08:34 05/29/18 08:34 05/29/18 08:34 05/29/18 08:34 Oxygen Delivery Method Room Air Weight: 124 lb 1.924 oz Body Mass Index (BMI) 20.6 Intake and Output for Last 24 Hours 05/27/18 05/28/18 05/29/18 23:59 23:59 23:59 Intake Total 7410 / 7410 6809 / 6809 3514 / 3514 Output Total 6050 / 6050 5000 / 5000 2850 / 2850 Balance 1360 / 1360 1809 / 1809 664 / 664 Microbiology Past 72 Hours 05/26/18 15:29 Gram Stain - Final Abs - Scalp Wound Culture - Final Meth. resistant Staph. aureus Anaerobic Culture - Final No anaerobic bacteria isolated. 05/26/18 13:40 Blood Culture - Preliminary Blood Culture (Wb) - Arm Right No growth in 48 hours. 05/24/18 15:00 Blood Culture - Final Blood Culture (Wb) - Neck Meth. resistant Staph. aureus 11/26/18 16:41 Bacteria Detection (PCR) - Final Blood Culture (Wb) - Venous Staphylococcus aureus mecA Resistance Marker Blood Culture - Final Staphylococcus aureus Laboratory Tests Past 24 Hrs 05/28/18 05/29/18 21:30 05:35 WBC 12.1 H RBC 3.67 L Hgb 10.4 L Hct 32.0 L MCV 87.2 MCH 28.3 MCHC 32.5 RDW 14.0 RDW Differential 44.8 H Plt Count 420 MPV 10.4 Immature Gran % (Auto) 1.400 H Neut % (Auto) 58.6 Lymph % (Auto) 27.9 [place] % (Auto) 8.6 Eos % (Auto) 3.2 Baso % (Auto) 0.3 Absolute Neuts (auto) 7.1 Absolute Lymphs (auto) 3.37 Total Counted Not Reportable Vancomycin Trough 17.7 H Discharge Diet: No Restrictions, - - No alcohol Discharge Activity: Return to Normal Activity Home Medications: Medications to take at Discharge Clonidine HCl [Catapres] 0.1 mg PO DAILY PRN 05/24/18 Linezolid [Zyvox] 600 mg PO Q12H #22 tablet 05/28/18 Quetiapine Fumarate [Seroquel] 50 mg PO 4X/DAY #28 05/29/18 Following Prescrptions Were Given to Patient: Linezolid [Zyvox] 600 mg PO Q12H #22 tablet Primary Care Physician: Care Physician,No Primary [Primary Care Provider] - Please follow up with your Primary Care Physician in: 1-2 weeks Please Follow Up With: Mary Ivy MD When: 1 week Please Follow Up With: Lonnie Brown MD When: 2 weeks Disposition: Home Minutes spent on discharge:: 35 Patient Condition:: Stable Medical Necessity - Tobacco Use Smoking Status: Current every day smoker Tobacco Use: Cigarettes Meaningful Use Info Meaningful Use Diagnoses (Choose all that apply): None applicable <Jonatan Martell - Last Filed: 05/29/18 17:09> Discharge Date and Diagnosis - Secondary Discharge Diagnosis Chronic Problems Tobacco use (Chronic) IV drug user (Chronic) Heroin abuse (Chronic) Methamphetamine abuse (Chronic) Adderall use disorder, mild, abuse (Chronic) Alcohol abuse (Chronic) Hospital Course and Treatment Consultations 05/27/18 05:22 Consult: Onc/Wound/frame gate mortiser operator Routine Comment: Reason for Consult:: Abscess on back of head that was drained Summary of Care Provided: The patient is a 28 year old M [] - Physical Exam Vital Signs Temp Pulse Resp BP Pulse Ox 98.5 F 90 16 117/60 97 05/29/18 08:34 05/29/18 08:34 05/29/18 08:34 05/29/18 08:34 05/29/18 08:34 Oxygen Delivery Method Room Air Weight: 124 lb 1.924 oz Body Mass Index (BMI) 20.6 Intake and Output for Last 24 Hours 05/27/18 05/28/18 05/29/18 23:59 23:59 23:59 Intake Total 7410 / 7410 6809 / 6809 3514 / 3514 Output Total 6050 / 6050 5000 / 5000 2850 / 2850 Balance 1360 / 1360 1809 / 1809 664 / 664 Microbiology Past 72 Hours 05/27/18 10:00 Blood Culture - Preliminary Blood Culture (Wb) - Right Hand No growth in 48 hours. 05/26/18 15:29 Gram Stain - Final Abs - Scalp Wound Culture - Final Meth. resistant Staph. aureus Anaerobic Culture - Final No anaerobic bacteria isolated. 05/26/18 13:40 Blood Culture - Preliminary Blood Culture (Wb) - Arm Right No growth in 48 hours. 05/24/18 15:00 Blood Culture - Final Blood Culture (Wb) - Neck Meth. resistant Staph. aureus 05/24/18 16:41 Bacteria Detection (PCR) - Final Blood Culture (Wb) - Venous Staphylococcus aureus mecA Resistance Marker Blood Culture - Final Staphylococcus aureus Laboratory Tests Past 24 Hrs 05/27/18 05/28/18 05/29/18 06:32 21:30 05:35 WBC 12.1 H RBC 3.67 L Hgb 10.4 L Hct 32.0 L MCV 87.2 MCH 28.3 MCHC 32.5 RDW 14.0 RDW Differential 44.8 H Plt Count 420 MPV 10.4 Immature Gran % (Auto) 1.400 H Neut % (Auto) 58.6 Lymph % (Auto) 27.9 [place] % (Auto) 8.6 Eos % (Auto) 3.2 Baso % (Auto) 0.3 Absolute Neuts (auto) 7.1 Absolute Lymphs (auto) 3.37 Total Counted Not Reportable Vancomycin Trough 17.7 H Hep Bs Antigen Negative Hep B Core Total Ab Negative Hepatitis C Ab (EIA) >11.0 H HCV RNA Quant (PCR) 822038 HCV RNA (PCR) log10 5.945 Hepatitis C RNA Comment Comment Code Visit Addendum: Dr. Martell I personally examined the patient and reviewed the chart. I agree with the above. 1-year-old male with past medical history of IV heroin and meth abuse who presented 1 day after using heroin for arm pain. He was found to have MRSA bacteremia. He had a TTE which was negative for any vegetations on his valves, and his blood cultures have remained negative that were drawn on May 26, therefore he was discharged today on Zyvox twice daily for 11 days. There is a complication and that a prior Auth has not been obtained yet for his Zyvox ho wever there is an emergency 3-day supply that has been given so that we can then receive the insurance coverage for the rest of his pills. This was explained to him in detail prior to his discharge and he is aware that he will have to return to the pharmacy to get the remainder of his pills on Thursday. The source of his MRSA bacteremia was felt to be an abscess on his posterior scalp which had been drained by general surgery and he will need to follow-up with general surgery as an outpatient as well as a new PCP since he was also given a 7-day prescription for Seroquel which she states is necessary for him to stay off of heroin. Inpatient E&M: 00536 Disch Hosp
--- NOTE | 2018-05-31 09:22 | CASEMGMT ---
NAIN MAYO NOTE: Call placed to [facility] pharmacy and they ran the Zyvox and it is showing prior-auth has not been approved yet. Call placed to [facility] Auth Dept. Prior Auth has been approved for the Zyvox, effective 05-29-18 through 06-04-18. Call placed to [facility] Pharmacy again and spoke to pharmacy resource tech, September. She reprocessed the claim and stated it is still not showing it was approved. Call placed to [facility] Auth Dept again. They contacted [facility] and had them re-process the claim. [place] pharmacy resource tech stated she spoke to Gilma @ [facility] and was able to get the claim to go through. Call placed to [facility] and spoke to September. She confirmed the claim did go through for prior auth for the Zyvox. She is going to fill the prescription and confirmed she will place call to patient to inform him his prescription is ready to tow picker. Cuate ESTESN NAIN CM
--- NOTE | 2018-05-31 14:54 | CASEMGMT ---
RN CM Discharge Follow-up Phone Call: CHAKAPerla: 9 Strata: 3 Call Date: 05/31/18 Discharge Date: 05/29/18 Time of Call: 0964 Duration: 0 ? Admitting Diagnosis: Sepsis w/MRSA, scalp abscess, IV Drug use This RN CM attempted to contact pt via telephone for discharge follow-up. Message received stating the phone number was no longer in service. Sabrina Woodward RN
== END 2018-05-29 11:25 | disposition home or self-care (01) | DRG 383 ==
LOC: ED 14:18 → PCU 16:32
PROVIDERS: Internal Medicine Infectious Disease; Physician Assistant; Admitting Provider Family Medicine; Emergency Provider Emergency Medicine; Visit Provider Family Medicine
DX: L02.811 Cutaneous abscess of head [any part, except face] (principal); E87.1 Hypo-osmolality and hyponatremia; D64.9 Anemia, unspecified; F17.210 Nicotine dependence, cigarettes, uncomplicated; M79.601 Pain in right arm; F15.10 Other stimulant abuse, uncomplicated; F11.10 Opioid abuse, uncomplicated; F10.10 Alcohol abuse, uncomplicated
CPT/HCPCS: 36415; 80048; 80053; 80202; 83605; 83930; 83935; 85025; 86703; 86704; 86803; 87040; 87070; 87075; 87077; 87149; 87186; 87205; 87340; 87522; 93306; 97802; 99285; J7030; J7040; J7050; Q9957; A4216; C8929

== ENCOUNTER 2018-07-04 21:29 | Emergency (ER) | payer MEDICAID, SELFPAY ==
[2018-05-24 17:40] VITALS: BMI 20.6
[2018-07-04 21:30] VITALS: BP 156/98; PULSE 99; RESP 18; TEMP 36.3; O2SAT 97; O2SAT 99; BMI 20.1
--- NOTE | 2018-07-04 21:52 | ED.DCSUM_ITS ---
- ER Visit Summary Date of Service: 07/04/18 Chief Complaint: Scalp wound from picking History of Present Illness: The patient is a 28 M history of heroin abuse and prior MRSA infection possible prior endocarditis. Patient states he abuses heroin last use was yesterday. He has had an area on his scalp and has been picking for more than a month. And he wants to make sure it is noninfected. He denies any fever. States the only time he has drainage is been clear. Physical Examination: Well-appearing 28-year-old male. No acute distress. Vital signs are stable. Afebrile. HEENT exam posterior part of the scalp is an area is about 2 inches x 2 inches circular that the hair is missing is picked all the topical skin off down the deeper layers. There is no active bleeding. There is currently no signs of infection or discharge. This is trauma I did there is on scalp from picking it. There are no abscesses. Neck is nontender without lymphadenopathy. Lungs clear to auscultation bilaterally. Heart regular rate and rhythm no murmur appreciated. Abdomen soft nontender. Patient moving all 4 extremities. Neurovascular intact. He has track clark in both antecubital areas but there are no acute signs of cellulitis or infection. Neurologically is awake alert with no focal motor deficits. Test Results: None Emergency Department Course and Treatment: I explained to the patient he just needs to quit picking his scalp. There is no signs of infection or cellulitis. I explained to him that oral antibiotics would do him no good. He needs to keep area clean leave it alone. Treatment Plan: Bacitracin topical antibiotic ointment. Strongly consider drug detox. Disposition: Discharge Impression: Skin from picking at the skin on his scalp History of heroin abuse This note was generated with [employer] dictation software. It may contain incorrect words, spelling, and punctuation that were not noted in review of the chart prior to signing ED Disposition - Plan for ED Patient: Chief Complaint: Wound Check Referrals: Care Physician,No Primary [Primary Care Provider] -
--- NOTE | 2018-07-04 21:52 | ED.DEP ---
ED Disposition - Plan for ED Patient: Disposition: Home or Assisted Living Chief Complaint: Wound Check Referrals: Benjamin Kang MD [NON-STAFF] - As Needed Additional Instructions: Stop picking at the skin that is the reason is not healing. Keep the area clean and apply antibiotic ointment. Follow-up with a local primary care physician to get a doctor. Strongly consider follow-up with 1 of the local drug counseling center such as [facility].
[2018-07-04 22:16] VITALS: PULSE 98; RESP 18; O2SAT 96
== END 2018-07-04 22:17 | disposition home or self-care (01) ==
PROVIDERS: Emergency Provider Emergency Medicine
DX: S00.00XA Unspecified superficial injury of scalp, initial encounter (principal); X58.XXXA Exposure to other specified factors, initial encounter; Y93.9 Activity, unspecified; Y92.9 Unspecified place or not applicable; Y99.9 Unspecified external cause status; F11.10 Opioid abuse, uncomplicated; Z72.0 Tobacco use; Z79.899 Other long term (current) drug therapy; Z86.14 Personal history of Methicillin resistant Staphylococcus aureus infection
CPT/HCPCS: 99282

== ENCOUNTER 2018-07-10 00:17 | Emergency (ER) | payer MEDICAID, SELFPAY ==
[2018-07-10] VITALS (7 sets, daily range): BP systolic 120–141; BP diastolic 86–95; PULSE 102–116; RESP 20–31; TEMP 36.1; O2SAT 96–100; BMI 21.4
[2018-07-10] MEDS: morphine 10 MG/ML Syringe 8 MG IM (00:25)
--- NOTE | 2018-07-10 00:31 | CT_ITS ---
STUDY: CT ABDOMEN AND PELVIS WITHOUT CONTRAST REASON FOR EXAM: Male, 28 years old. Sudden sharp chest pain after standing. Unable to sit or leg. RADIATION DOSAGE (If Supplied By Facility): CTDIvol = ( 6.04 ) mGy, DLP = ( 625.19 ) mGycm TECHNIQUE: Transaxial 2.5 mm images were obtained from the dome of the diaphragm to the symphysis pubis without oral contrast, and without intravenous contrast. Sagittal and coronal images were reconstructed. This examination is limited for the evaluation of gastrointestinal, solid organs and vascular structures due to the lack of internal fat planes, intravenous and oral contrast. Individualized dose optimization techniques were used for this CT. COMPARISON: None. FINDINGS: Small focally hazy airspace opacification right posterior sulcus. Mild nodular infiltrates left lower lobe, possible minor atelectasis. There is no demonstrated pneumothorax. The visualized portions of the heart are within normal limits. Normal liver. The gallbladder is poorly visualized and contracted or absent. Normal spleen. Poorly visualized pancreas. Poorly visualized bilateral adrenal glands. Normal right kidney. Normal left kidney. Marked gastric distention with fluid, food particles and air. Limited detail of the small intestine. There is moderate amount of fecal material. There is no obstruction. Segmental nonvisualization of the sigmoid colon. There is non-visualization of the appendix. Normal abdominal aorta. Normal inferior vena cava. Normal retroperitoneum. Normal urinary bladder. Bilateral inguinal lymph nodes possible lymphoid hyperplasia. Normal osseous structures. CT/Abdomen/Pelvis without Cont IMPRESSION: Marked distention of stomach as outlined above of unclear etiology, no obstructing lesions detected. Bilateral basilar airspace disease possibly inflammation/infection. Moderate amount of retained fecal material without obstruction. Technically limited examination as outlined above, poorly visualized gallbladder, pancreas, adrenal glands, small bowel, segmental sigmoid colon, appendix. Electronically Signed: Edie Gallegos MD at 2:14 EST , Service support ,
--- NOTE | 2018-07-10 00:31 | RAD_ITS ---
STUDY: X-RAY CHEST REASON FOR EXAM: Male, 28 years old. Severe shortness of breath, chest pain, unable to see the lay down. TECHNIQUE: Single AP portable view of the chest. COMPARISON: CT abdomen and pelvis lung bases 07/10/2018 FINDINGS: Mild opacification in the right posterior sulcus and mild nodular airspace infiltrates in the left lower lobe on CT are not appreciated. There is no demonstrated pneumothorax. There is hyperinflation. There is no focal parenchymal abnormality. There is no demonstrated pleural abnormality. Normal size heart. Normal mediastinum and brandy. Normal visualized pulmonary arteries. Normal visualized aortic arch and descending thoracic aorta. Normal visualized thoracic spine. Normal visualized ribs, clavicles, and shoulders. There is no demonstrated abnormality of the visualized soft tissue structures of the upper abdomen. RAD/Chest 1 View (Portable) IMPRESSION: Bibasilar airspace disease on CT not appreciated on plain film. Hyperinflation. Electronically Signed: Edie Gallegos MD at 1:49 EST , Service support ,
[2018-07-10] MEDS: 0.9% Normal Saline 1,000 ML 1000 ML IV (00:53)
[2018-07-10] MEDS: Ondansetron 4 MG/2 ML Vial IV (00:54)
[2018-07-10] MEDS: Morphine 4 MG/ML Syringe IV ×2 (00:54→02:39)
[2018-07-10 01:08] LABS: Absolute Lymphocyte Count 2.93 X10^3/ul (0.83-4.51); Absolute Neutrophil Count 10.4 X10^3/uL (2.0-7.7); Basophil# 0.07 X10^3/uL; Basophil% 0.5 % (0-1); Differential Indicated SCAN CRITERIA MET; Eosinophil# 0.14 X10^3/uL; Eosinophils% 0.9 % (0-5); Hematocrit 40.6 % (40-54); Hemoglobin 13.1 g/dl (13.0-16.5); Lymphocyte # 2.93 X10^3/ul (4.0); Lymphocyte % 19.4 % (19-41); Mean Corp Hgb Conc 32.3 g/gl (32-36); Mean Corpuscular Hgb 27.4 pg (27.0-32.0); Mean Corpuscular Volume 84.9 fL (80-94); Mean Platelet Vol. 11.4 fl (6.2-12.0); Monocyte# 1.55 X10^3/uL; Monocyte% 10.2 % (0-10); Neutrophil # 10.38 X10^3/uL (2.7-7.7); Neutrophil % 68.6 % (47-70); POSITIVE COUNT NO; POSITIVE DIFFERENTIAL YES; POSITIVE MORPHOLOGY NO; Platelet Count 264 K/mm3 (150-450); RBC Distribution Width CV 14.9 % (11.6-14.6); RBC Distribution Width SD 45.3 fl (35.1-43.9); Red Blood Count 4.78 M/mm3 (4.6-6.2); White Blood Count 15.1 K/mm3 (4.4-11.0)
[2018-07-10 01:14] LABS: ALB/GLOB Ratio 0.6 RATIO (0.9-2.4); AST(SGOT) 25 U/L (15-37); Alanine Aminotransfer ALT/SGPT 25 U/L (16-61); Albumin, Serum 3.3 g/dL (3.2-5.0); Alkaline Phosphatase 99 U/L (45-117); Anion Gap 10 (5-15); BUN 14 mg/dL (7-18); BUN/Creat Ratio 20.9 RATIO (10-20); Calcium,Total 8.6 mg/dL (8.5-10.1); Chloride 100 mmol/L (98-107); Creatinine, Serum 0.67 mg/dL (0.70-1.30); EST Glomerular Filtration Rate 148 mL/min (>60); Est Glom Filt Rate - Afr Amer 179 mL/min (>60); Estimated Creatinine Clearance 129.29 ml/min; Globulin 5.1 g/dL (2.2-4.2); Glucose 118 mg/dL (74-106); Lipase 87 U/L (73-393); Potassium 4.5 mmol/L (3.5-5.1); Protein, Total 8.4 g/dL (6.4-8.2); Sodium Level 134 mmol/L (136-145)
--- NOTE | 2018-07-10 01:42 | ED.DCSUM_ITS ---
- ER Visit Summary Date of Service: 07/10/18 Chief Complaint: Abdominal and chest pain History of Present Illness: The patient is a 28 M presenting for evaluation secondary to abdominal and chest pain. Patient has a underlying history of methamphetamine use, states his last use was this morning. He reports that he was fine all day, and went to get up off the couch and had a very sudden onset of extremely severe right lower chest and right upper abdomen pain. He reports that this pain is worse with any sort of movement palpation or with attempt to take a deep breath. It is causing him to feel somewhat short of breath. Patient denies any fevers. Denies any prior similar episodes. Physical Examination: Vital signs notable for heart rate of 116. Thin somewhat ill-appearing male visibly in severe pain and standing holding his right chest and abdomen in the room. Head is normocephalic with evidence of multiple large skin abscesses in various stages of healing. PRL, EOMI. Patient has significant rhinorrhea. Neck is supple. Heart was tachycardic and regular. Lung sounds were clear, patient had shallow respirations and right anterior chest tenderness to palpation without any evidence of crepitus step-offs or deformity. Abdomen was tender in the right upper quadrant with some guarding but no diffuse tenderness or rebound. Remainder of physical otherwise unremarkable. Test Results: CBC demonstrates leukocytosis of 15, chemistry liver and lipase are essentially unremarkable no evidence of anion gap or acidosis. One view chest by my personal review shows no acute pathology or pneumothorax. CT abdomen and pelvis demonstrates evidence of significant dilation of the patient's stomach Emergency Department Course and Treatment: Patient presented secondary to severe abdominal pain and chest pain. He initially was very difficult to get to cooperate and was given intramuscular morphine while he was standing next to the bed as he would not sit down for us. I obtained a immediate stat x-ray of the patient while standing, which did not show any evidence of pulmonary disease or pneumothorax. Ultimately we were able to get the patient finally in bed. Patient's laboratory studies do show a leukocytosis. CT abdomen and pelvis showed large gastric distention. I discussed with the patient his usage habits of methamphetamine, and he states that he did take it orally today. Potentially this is an element of an ileus secondary to stimulant dosages through the GI tract, but the patient has no evidence of ischemia as he has a normal anion gap and no evidence of decreased bicarbonate. I attempted to place an NG on the patient, and he was unable to tolerate this. I had a discussion with the patient about the importance of placing an NG and likely admission for observation due to the severity of his pain, the patient states that he wishes to leave AGAINST MEDICAL ADVICE. Patient is of sound mind currently, is not intoxicated, and has decision-making capacity. Patient understands to return for any worsening symptoms. Disposition: Discharge AGAINST MEDICAL ADVICE Impression: 1. Severe abdominal pain secondary to gastric distention 2. Methamphetamine use Critical care time 35 minutes This note was generated with [employer] dictation software. It may contain incorrect words, spelling, and punctuation that were not noted in review of the chart prior to signing ED Disposition - Plan for ED Patient: Disposition: Home or Assisted Living Chief Complaint: Chest Pain Diagnosis: Abdominal pain Instructions: ED Abdominal Pain Unkn Cause Referrals: Care Physician,No Primary [Primary Care Provider] -
[2018-07-10 01:56] LABS: Differential Comment SCANNED; Platelet Estimate ADEQUATE (ADEQ)
[2018-07-10] MEDS: Oxymetazoline 0.05% 1 SPRAY SPRAY.BTL 2 SPRAY NASAL (02:39)
[2018-07-10] MEDS: Lidocaine 4% 5 ML Ampul 2 ML INHALATION (02:45)
--- NOTE | 2018-07-10 03:16 | ED.RN ---
PT refuses further treatment or evaluation. Called friend for ride home. AMA paperwork signed, copy given to PT. PT informed to come back if needed, he agreed. PT also informed we would be placing an NG if/when he came back. PT understands. PT left AMA paperwork on bed.
--- NOTE | 2018-07-10 04:36 | ED.RN ---
ATTEMPTED TO PLACE NG TUBE, PT UNABLE TO TOLERATE PROCEDURE. MD AWARE. SHORTLY AFTERWARD, PT WANTS ALL LINES OFF HE HAS CALLED FOR HIS RIDE AND IS GOING HOME. AWARE. AMA PAPERWORK COMPLETED AND HE SIGNED. A COPY WAS GIVEN TO HIM BUT HE LEFT IT AT BEDSIDE. PT EDUCATED TO RETURN IF PAIN WORSENS, BUT AN NG WOULD HAVE TO BE PLACED. PT RETURNED VERBALIZATION.
[2018-07-12 14:45] LABS: Pathologist Review Reviewed
== END 2018-07-10 03:17 | disposition home or self-care (01) ==
LOC: ED 00:51
PROVIDERS: Emergency Provider Emergency Medicine
DX: K31.89 Other diseases of stomach and duodenum (principal); R10.9 Unspecified abdominal pain; R07.9 Chest pain, unspecified; R06.02 Shortness of breath; Z72.0 Tobacco use
CPT/HCPCS: 71045; 74176; 80053; 83690; 85025; 94640; 96361; 96372; 96374; 96375; 96376; 99285; J7030; A4216; J2405

== ENCOUNTER 2019-09-30 22:27 | Emergency (ER) | payer SELFPAY ==
[2018-07-10 00:19] VITALS: BMI 21.4
[2019-09-30 22:28] VITALS: BP 118/76; PULSE 105; RESP 18; TEMP 36.4; O2SAT 97; BMI 16.9
--- NOTE | 2019-09-30 22:35 | EKG12_ITS ---
Test Reason : OVERDOSE Blood Pressure : / mmHG Vent. Rate : 092 BPM Atrial Rate : 092 BPM P-R Int : 126 ms QRS Dur : 080 ms QT Int : 376 ms P-R-T Axes : 081 083 080 degrees QTc Int : 464 ms Normal sinus rhythm Normal ECG Confirmed by THOMAS KNOX, SALIMA ([id number]), science editor MINA BOYKIN ([id number]) on 10/04/2019 2:22:55 PM Referred By: GERARD Confirmed By:VIOLET GUZMAN MD
--- NOTE | 2019-09-30 22:35 | CT_ITS ---
STUDY: CT BRAIN WITHOUT CONTRAST REASON FOR EXAM: Male, 29 years old. OVERDOSE, MENTAL STATUS CHANGE RADIATION DOSAGE (If Supplied By Facility): CTDIvol = ( 44.99 ) mGy, DLP = ( 762.36 ) mGycm TECHNIQUE: Transaxial CT imaging of the brain was performed without administration of intravenous contrast material. Individualized dose optimization techniques were used for this CT. COMPARISON: No relevant priors. FINDINGS: Normal soft tissue structures. Normal calvarium. Normal size ventricles and extra-axial spaces for the patient''s age. Normal white matter tracts of the cerebral hemispheres. Normal basal ganglia and thalami. Normal brainstem. Normal cerebellum. There is no intracranial hemorrhage. There are no findings of an acute ischemic infarction. Mild areas of mucosal thickening in the right maxillary sinus. CT/Brain/Head without Contrast IMPRESSION: Normal unenhanced CT scan of the brain. Mild areas of mucosal thickening in the right maxillary sinus. Electronically Signed: Susu Aceves MD at 23:24 EDT , Service support ,
--- NOTE | 2019-09-30 22:38 | ED.VIS.GEN ---
History of Present Illness Chief Complaint: Overdose Informant: Patient Onset: Today Context: Sudden Onset Timing: Continuous Current Severity: Moderate Maximum Severity: Severe Narrative: The patient is a 29-year-old male that presents to the emergency department after overdose. The patient apparently called his friends and told him that he had overdosed on Seroquel. Patient gives no history. Apparently, he was more drowsy and hard to arouse. Friends called EMS, and the patient was brought in for evaluation. The patient will respond to voice, but does not give any history. He does have history of prior substance abuse including heroin. He would not voice if this was a suicidal act. Prior similar symptoms: No Recent Illness/Hospitalization: No Past Medical History - Allergies and Home Meds Allergies/Adverse Reactions: Allergies naloxone [From Suboxone] Allergy (Verified 07/10/18 00:27) makes my mouth go home buprenorphine [From Suboxone] Adverse Reaction (Verified 07/10/18 00:27) makes my mouth go numb Pt states ok to take subutex Primary Care Physician: Care Physician,No Primary [Primary Care Provider] - Prior records reviewed: Yes Past Medical History: - - History of substance abuse Surgical History: no surgical history Smoking Status: Current every day smoker - Family History Maternal Family History: Reports: Diabetes Paternal Family History: Reports: Diabetes Review of Systems General: Denies: Chills, Fever, Sweats Eyes: Denies: Visual changes - bilaterally, Diplopia ENT: Denies: Rhinorrhea, Sore throat Cardiovascular: Denies: Chest pain, Palpitations Respiratory: Denies: Dyspnea, Cough, Dyspnea on exertion Gastrointestinal: Denies: Abdominal pain, Nausea, Vomiting, Diarrhea, Melena, Hematochezia Genitourinary: Denies: Dysuria, Hematuria, Frequency Musculoskeletal: Denies: Back pain, Extremity Pain Skin: Denies: Rash, Wounds Neurological: Denies: Headache, Weakness, Numbness Physical Exam Vital Signs/Narrative: Vital Signs Temp Pulse Resp BP Pulse Ox 09/30/19 22:28 97.6 F L 105 H 18 118/76 97 Inital Vital Signs reviewed: Yes General: Well nourished, Well developed, No Acute Distress Head: Normocephalic, Atraumatic Eyes: Perrl, EOMI ENT: Moist mucous membranes, No rhinorrhea Neck: Supple, Nontender Cardiovascular: Regular rate, Regular rhythm, No murmurs Respiratory: No distress, CTA bilaterally, Chest nontender Abdomen: Soft, Nontender, Nondistended, Normal bowel sounds Back: Nontender, Normal Inspection Extremities: Nontender, No edema Skin: Normal color, No rash Neurological: Cranial nerves II-XII grossly intact, Normal Strength, Normal Sensation, Lethargic Psychological: Normal affect, Normal Mood Diagnostic/Tx/Re-eval Clinical Impression(s) from Imaging Studies Brain CT 09/30/19 22:35 IMPRESSION: Normal unenhanced CT scan of the brain. Mild areas of mucosal thickening in the right maxillary sinus. Electronically Signed: Susu Aceves MD at 23:24 EDT , Service support , Abnormal Lab Results 09/30/19 09/30/19 09/30/19 22:40 22:40 22:40 WBC 6.5 RBC 4.29 L Hgb 13.6 Hct 40.2 MCV 93.7 MCH 31.7 MCHC 33.8 RDW Std Deviation 43.5 RDW Coeff of Anais 12.7 Plt Count 149 L MPV 11.9 Immature Gran % (Auto) 0.300 Neut % (Auto) 45.1 L Lymph % (Auto) 45.8 H [place] % (Auto) 6.9 Eos % (Auto) 1.1 Baso % (Auto) 0.8 Absolute Neuts (auto) 2.9 Absolute Lymphs (auto) 2.97 Nucleated RBC % 0 Sodium 140 Potassium 3.8 Chloride 109 H Carbon Dioxide 27.0 Anion Gap 4 L BUN 21 H Creatinine 0.94 Estim Creat Clear Calc 91.32 Est GFR (MDRD) Af Amer 120 Est GFR (MDRD) Non-Af 99 BUN/Creatinine Ratio 22.4 H Glucose 119 H Calcium 8.3 L Magnesium Total Bilirubin 0.20 Direct Bilirubin 0.11 AST 31 ALT 47 Alkaline Phosphatase 53 Total Protein 6.8 Albumin 3.7 Globulin 3.1 Salicylates Acetaminophen Ethyl Alcohol < 3.0 09/30/19 09/30/19 10/01/19 22:40 22:40 03:10 WBC RBC Hgb Hct MCV MCH MCHC RDW Std Deviation RDW Coeff of Anais Plt Count MPV Immature Gran % (Auto) Neut % (Auto) Lymph % (Auto) [place] % (Auto) Eos % (Auto) Baso % (Auto) Absolute Neuts (auto) Absolute Lymphs (auto) Nucleated RBC % Sodium Potassium Chloride Carbon Dioxide Anion Gap BUN Creatinine Estim Creat Clear Calc Est GFR (MDRD) Af Amer Est GFR (MDRD) Non-Af BUN/Creatinine Ratio Glucose Calcium Magnesium 2.4 Total Bilirubin Direct Bilirubin AST ALT Alkaline Phosphatase Total Protein Albumin Globulin Salicylates 2.6 L Acetaminophen 25.2 13.5 Ethyl Alcohol - Medical Decision Making The patient presents after overdose on Seroquel. He would respond to sternal rub and to shouting. I discussed his case immediately with poison control who recommended cardiac monitoring for 6 hours. The patient was able to voice that he took 15 tablets, but he was unsure of the milligrams. Metabolic work-up was pursued and is unremarkable. Noncontrast head CT was unremarkable. As we were not sure whether this was a suicide attempt, suicidal precautions were instituted. The patient has been continuously observed and reevaluated. He did have transient hypotension that resolved with IV fluids. I did discuss his care with his , who did not voice any concerns of suicidality, however the patient is still under the influence of his medication. The plan will be to observe the patient until he is appropriate and alert. He will then be reevaluated to determine if this was an attempt at self-harm or just an ingestion. Disposition is currently pending. Impression 1. Overdose on Seroquel ED Disposition - Plan for ED Patient: Instructions: ED Accidental Ingestion Nontoxic Adult Referrals: Care Physician,No Primary [Primary Care Provider] -
[2019-09-30 22:53] LABS: Absolute Lymphocyte Count 2.97 X10^3/uL (0.83-4.51); Absolute Neutrophil Count 2.9 X10^3/uL (2.0-7.7); Basophil# 0.05 X10^3/uL; Basophil% 0.8 % (0-1); Eosinophil# 0.07 X10^3/uL; Eosinophils% 1.1 % (0-5); Hematocrit 40.2 % (40-54); Hemoglobin 13.6 g/dL (13.0-16.5); Lymphocyte # 2.97 X10^3/ul (4.0); Lymphocyte % 45.8 % (19-41); Mean Corp Hgb Conc 33.8 g/dL (32-36); Mean Corpuscular Hgb 31.7 pg (27.0-32.0); Mean Corpuscular Volume 93.7 fL (80-94); Mean Platelet Vol. 11.9 fl (6.2-12.0); Monocyte# 0.45 X10^3/uL; Monocyte% 6.9 % (0-10); NRBC Flagged by Analyzer 0 % (0-5); Neutrophil # 2.93 X10^3/uL (2.7-7.7); Neutrophil % 45.1 % (47-70); Platelet Count 149 K/mm3 (150-450); RBC Distribution Width CV 12.7 % (11.6-14.6); RBC Distribution Width SD 43.5 fl (35.1-43.9); Red Blood Count 4.29 M/mm3 (4.6-6.2); White Blood Count 6.5 K/mm3 (4.4-11.0)
[2019-09-30 23:05] LABS: AST(SGOT) 31 U/L (15-37); Alanine Aminotransfer ALT/SGPT 47 U/L (16-61); Albumin, Serum 3.7 g/dL (3.2-5.0); Alkaline Phosphatase 53 U/L (45-117); Anion Gap 4 (5-15); BUN 21 mg/dL (7-18); BUN/Creat Ratio 22.4 RATIO (10-20); Bilirubin, Direct 0.11 mg/dL (0.00-0.30); Calcium,Total 8.3 mg/dL (8.5-10.1); Chloride 109 mmol/L (98-107); Creatinine, Serum 0.94 mg/dL (0.70-1.30); EST Glomerular Filtration Rate 99 mL/min (>60); Est Glom Filt Rate - Afr Amer 120 mL/min (>60); Estimated Creatinine Clearance 91.32 ml/min; Globulin 3.1 g/dL (2.2-4.2); Glucose 119 mg/dL (74-106); Potassium 3.8 mmol/L (3.5-5.1); Protein, Total 6.8 g/dL (6.4-8.2); Sodium Level 140 mmol/L (136-145)
[2019-09-30 23:08] LABS: Magnesium 2.4 mg/dL (1.6-2.6)
[2019-09-30 23:18] LABS: Alcohol, Blood (Medical)-Serum < 3.0 mg/dL
[2019-09-30 23:20] LABS: Acetaminophen (Tylenol) Level 25.2 ug/mL (10.0-30.0); Salicylate 2.6 mg/dL (2.8-20.0)
[2019-09-30 23:27] VITALS: BP 120/77; PULSE 108; RESP 12; O2SAT 98
[2019-10-01] VITALS (11 sets, daily range): BP systolic 78–137; BP diastolic 43–89; PULSE 74–106; RESP 8–18; O2SAT 95–99
[2019-10-01] MEDS: 0.9% Normal Saline 1,000 ML 999 ML IV ×2 (00:21→01:19)
[2019-10-01 04:07] LABS: Acetaminophen (Tylenol) Level 13.5 ug/mL (10.0-30.0)
[2019-10-01 10:22] LABS: Amphetamine Urine VISTA POSITIVE (<1000 ng/mL); Barbiturate Urine VISTA NEGATIVE (< 200 ng/mL); Benzodiazepine Urine VISTA NEGATIVE (< 200 ng/mL); Cocaine Urine VISTA NEGATIVE (< 300 ng/mL); Ecstacy Urine VISTA POSITIVE (< 500 ng/mL); Methadone Urine VISTA NEGATIVE (< 300 ng/mL); PCP Urine VISTA NEGATIVE (< 25 ng/mL); THC Urine VISTA NEGATIVE (< 50 ng/mL); Vista UDS pH Range 5
== END 2019-10-01 11:20 | disposition home or self-care (01) ==
LOC: ED 22:44
PROVIDERS: Emergency Provider Emergency Medicine
DX: T43.591A Poisoning by other antipsychotics and neuroleptics, accidental (unintentional), initial encounter (principal); R40.0 Somnolence; Y92.9 Unspecified place or not applicable; F17.200 Nicotine dependence, unspecified, uncomplicated
CPT/HCPCS: 70450; 80048; 80076; 80307; 80320; 80329; 83735; 85025; 93005; 96360; 96361; 99285; J7030; A4216; G0480

== ENCOUNTER 2019-10-10 23:46 | Emergency (ER) | payer SELFPAY ==
[2019-10-10 23:47] VITALS: BP 166/108; PULSE 119; RESP 20; TEMP 36.8; O2SAT 97; BMI 18.8
--- NOTE | 2019-10-11 00:06 | ED.VIS.GEN ---
History of Present Illness Chief Complaint: Substance Abuse Detail of Chief Complaint: paranoia Informant: Patient Onset: Today Context: Gradual Onset Timing: Intermittent Quality: I was seeing shadows Current Severity: gone Maximum Severity: Moderate Worsened by: n/a Relieved by: n/a Associated Symptoms: dental pain x 1-2 months Narrative: Patient states he is a daily methamphetamine user, but has not used in the past 2 or 3 days. He states that today he has been seeing shadows and feeling paranoid because he was fairly certain that they represented people. States he has had this happen before when he stopped using methamphetamine, when using meth, I kind of lose touch with everything and do not do very much and everything feels numb which is why the left maxillary dental pain is more prominent now, which she has been basically having for the past month or 2. He was apparently walking the streets aimlessly, looking for these people he thought he saw, when police were called, they responded by calling EMS to bring him to the emergency department since he wants help for substance abuse. He states he is an ex-heroin user, he has not used any IV drugs or any other illicit substance other than methamphetamine, in the last 2 months. Other than the dental pain he denies any physical symptoms or illnesses recently. - Past Medical History (1) IV drug user Status: Chronic Past Medical History - Allergies and Home Meds Allergies/Adverse Reactions: Allergies buprenorphine [From Suboxone] Adverse Reaction (Verified 10/10/19 23:49) makes my mouth go numb Pt states ok to take subutex naloxone [From Suboxone] Adverse Reaction (Verified 10/10/19 23:49) makes my mouth go home Primary Care Physician: Care Physician,No Primary [Primary Care Provider] - Surgical History: no surgical history Lives: Homeless Smoking Status: Current every day smoker Drugs: - - Methamphetamine. See HPI. - Family History Maternal Family History: Reports: Diabetes Paternal Family History: Reports: Diabetes Review of Systems General: Denies: Chills, Fever, Sweats Eyes: Denies: Visual changes - bilaterally, Diplopia ENT: Reports: - - Dental pain. See HPI.. Denies: Rhinorrhea, Sore throat Cardiovascular: Denies: Chest pain, Palpitations Respiratory: Denies: Dyspnea, Cough, Dyspnea on exertion Gastrointestinal: Denies: Abdominal pain, Nausea, Vomiting, Diarrhea, Melena, Hematochezia Genitourinary: Denies: Dysuria, Hematuria, Frequency Musculoskeletal: Denies: Back pain, Swelling, Extremity Pain Skin: Denies: Rash, Wounds Neurological: Denies: Headache, Weakness, Numbness Psych: Reports: - - Visual hallucinations, see HPI. No auditory hallucinations.. Denies: Suicidal thoughts, Suicidal ideations Physical Exam Vital Signs/Narrative: Vital Signs Temp Pulse Resp BP Pulse Ox 10/10/19 23:47 98.2 F 119 H 20 H 166/108 H 97 Inital Vital Signs reviewed: Yes General: Well nourished, Well developed, No Acute Distress Head: Normocephalic, Atraumatic Eyes: Perrl, EOMI ENT: Moist mucous membranes, No rhinorrhea Neck: Supple, Nontender Cardiovascular: Regular rate, Regular rhythm, No murmurs Respiratory: No distress, CTA bilaterally, Chest nontender Abdomen: Soft, Nontender, Nondistended, Normal bowel sounds Back: Nontender, Normal Inspection Extremities: Nontender, No edema Skin: Normal color, No rash, No Trauma Neurological: Alert, Oriented x3, Cranial nerves II-XII grossly intact, Normal Strength, Normal Sensation, Normal Gait Psychological: Normal Mood, Agitated - Mildly, more like hyperactive. Follows commands and is pleasant, conversive. Not actively delusional. Not acting on any hallucinations during the exam. No suicidal ideation. Diagnostic/Tx/Re-eval - Medical Decision Making Patient states he used to be on Seroquel but has been off of that because he does not have a doctor. He states he needs to get back on it. I do not think that is unreasonable, and I offered him a dose tonight which I think will help his symptoms and his mild psychomotor agitation. I feel the patient is looking for a place to stay, and he made comments to the nurses like maybe he could stay here all night, if I cannot find someone to stay with. He asked for some ibuprofen for his teeth, which was given along with some water. He was offered some snacks. He was advised that he cannot stay here, he did use his cell phone then to call some people to try to find a place to stay. If needed, nursing has a taxi voucher to help with transportation tonight. There is no indication to admit him to the hospital or to do any medical tests at this time. He was given resources for [facility] and I encouraged him to follow-up with them, that would be the most appropriate disposition for him to follow-up with as an outpatient for substance abuse help. ED Disposition - Plan for ED Patient: Disposition: Home or Assisted Living Diagnosis: Methamphetamine abuse, Hallucination, drug-induced Instructions: ED AMPHETAMINE ABUSE Referrals: Care Physician,No Primary [Primary Care Provider] - [facility] [STAFF PHYSICIAN] - As soon as possible
[2019-10-11] MEDS: Ibuprofen 600 MG Tablet PO (00:09)
[2019-10-11] MEDS: QUEtiapine 100 MG Tablet PO (00:30)
--- NOTE | 2019-10-11 00:59 | ED.RN ---
PT STATES HE HAS FOUND A PLACE TO SLEEP TONIGHT. HE IS AWARE THAT HE SHOULD WAIT UNTIL HE ARRIVES AT THAT PLACE BEFORE TAKING THE SEROQUEL. PT AGREEABLE.
== END 2019-10-11 00:35 | disposition home or self-care (01) ==
LOC: ED 10-11 00:14
PROVIDERS: Emergency Provider Emergency Medicine
DX: F15.151 Other stimulant abuse with stimulant-induced psychotic disorder with hallucinations (principal); K08.89 Other specified disorders of teeth and supporting structures; F17.200 Nicotine dependence, unspecified, uncomplicated; Z59.0 Homelessness
CPT/HCPCS: 99284

== ENCOUNTER 2019-11-25 13:38 | Observation (INO) | payer SELFPAY ==
[2019-11-25 13:40] VITALS: BP 122/68; PULSE 116; RESP 18; TEMP 36.4; O2SAT 98; BMI 20.7
--- NOTE | 2019-11-25 14:06 | ED.VIS.GEN ---
History of Present Illness Informant: Patient Onset: Days - 2 days Context: Gradual Onset Timing: Continuous Quality: Nausea Location: Abdomen Current Severity: Moderate Maximum Severity: Moderate Worsened by: Food and drink Relieved by: Nothing Associated Symptoms: Diarrhea Narrative: 29-year-old male history of polysubstance abuse presents to the emergency department requesting detox from methamphetamines and opiates. Patient states he has been snorting daily heroin and methamphetamines for the last 4 to 5 months. He normally snorts at least a half a gram daily of each. He has not used any drugs in 48 hours. He states his last detox was about 18 months ago. He states he drinks 1-3 beers daily or almost daily but denies history of alcohol dependence or withdrawal. Patient is having some loose stool, no abdominal pain, some mild nausea but he has been eating and drinking normally. No chest pain shortness of breath cough or fever. No vomiting. No sick contacts. No recent admissions to the hospital in the last several months. He does have a history of multiple abscesses to both arms and his left thigh but states since he stopped doing IV heroin about 18 months ago he has not had any abscesses. Denies thoughts of homicide or suicide Prior similar symptoms: Yes Recent Illness/Hospitalization: No <Bob Casanova - Last Filed: 11/25/19 14:07> <Aaron Finnegan - Last Filed: 11/25/19 14:41> Chief Complaint: Substance Abuse Past Medical History Prior records reviewed: Yes Past Medical History: - - Hepatitis C, polysubstance abuse Surgical History: no surgical history Lives: Homeless Smoking Status: Current every day smoker Alcohol: Occasional Drugs: Heroin - Family History Maternal Family History: Reports: Diabetes Paternal Family History: Reports: Diabetes <Bob Casanova - Last Filed: 11/25/19 14:07> <Aaron Finnegan - Last Filed: 11/25/19 14:41> - Allergies and Home Meds Allergies/Adverse Reactions: Allergies buprenorphine [From Suboxone] Adverse Reaction (Verified 11/25/19 13:42) makes my mouth go numb Pt states ok to take subutex naloxone [From Suboxone] Adverse Reaction (Verified 11/25/19 13:42) makes my mouth go home Primary Care Physician: [facility] [STAFF PHYSICIAN] - Review of Systems All systems negative except as indicated General: Reports: Malaise. Denies: Chills, Fever, Sweats Eyes: Denies: Visual changes - bilaterally, Blurred Vision - bilaterally, Diplopia ENT: Denies: Rhinorrhea, Sore throat Cardiovascular: Denies: Chest pain, Palpitations, Heart racing Respiratory: Denies: Dyspnea, Cough, Sputum, Dyspnea on exertion, Orthopnea Gastrointestinal: Reports: Nausea, Diarrhea. Denies: Abdominal pain, Vomiting, Constipation, Melena, Hematochezia Genitourinary: Denies: Dysuria, Hematuria, Frequency Musculoskeletal: Denies: Myalgias, Arthralgias, Neck pain, Back pain Skin: Denies: Rash, Abscess, Abrasions, Wounds Neurological: Denies: Headache, Weakness, Parasthesia Psych: Denies: Suicidal thoughts, Suicidal ideations <Bob Casanova - Last Filed: 11/25/19 14:07> Physical Exam Vital Signs/Narrative: Vital Signs Temp Pulse Resp BP Pulse Ox 11/25/19 13:40 97.6 F L 116 H 18 122/68 H 98 Inital Vital Signs reviewed: Yes General: Well nourished, Well developed, No Acute Distress Head: Normocephalic, Atraumatic Eyes: Perrl, EOMI ENT: Moist mucous membranes Neck: Supple, Nontender, No lymphadenopathy, No JVD Cardiovascular: Regular rhythm, Tachycardia Respiratory: No distress, CTA bilaterally, Chest nontender Abdomen: Soft, Nontender, Nondistended, Normal bowel sounds, No masses Back: Nontender, Normal Inspection Extremities: Nontender, No edema Skin: Normal color, No rash, No Trauma Neurological: Alert, Oriented x3 Psychological: Normal affect, Normal Mood <Bob Casanova - Last Filed: 11/25/19 14:07> Vital Signs/Narrative: Vital Signs Temp Pulse Resp BP Pulse Ox 11/25/19 13:40 97.6 F L 116 H 18 122/68 H 98 <Aaron Finnegan - Last Filed: 11/25/19 14:41> Diagnostic/Tx/Re-eval - Medical Decision Making Patient is mildly tachycardic but overall has stable vital signs. He is not suicidal homicidal. He is requesting detox from both heroin and methamphetamines. I contacted our hospitalist and spoke with Dr. Penn will admit the patient for further treatment and evaluation. Labs will be obtained but results are pending. Patient is hemodynamically stable. He declined any antiemetics. He is agreeable with plan of admission for detox. <Bob Casanova - Last Filed: 11/25/19 14:07> - Medical Decision Making Patient was seen with me. I did a [id number] examination with the patient. Patient presents requesting detox from heroin, meth, and alcohol. Patient states he only drinks alcohol occasionally. Patient states he does use methamphetamines and heroin daily. Patient states he has not used heroin yet today but admits to using meth today. Patient denies any chest pain or shortness of breath. Patient denies any nausea or vomiting. Vital signs are stable except for mild tachycardia of 116. Patient is afebrile. Patient is in no acute distress. Oral mucosa is pink and moist. Neck is supple. Trachea is midline. There is no JVD. Heart was regular and tachycardic. Lungs are clear and equal bilaterally. Abdomen is soft and nontender. Cranial nerves II through XII are intact. There are no focal motor or sensory deficits. Case was discussed with the hospitalist. He will admit the patient. Basic labs were obtained and are pending. Patient understood and was agreeable with the plan. All questions were answered. <Aaron Finnegan - Last Filed: 11/25/19 14:41> ED Disposition <Bob Casanova - Last Filed: 11/25/19 14:07> <Aaron Finnegan - Last Filed: 11/25/19 14:41> - Plan for ED Patient: Disposition: Acute Care [facility] Diagnosis: Opioid withdrawal, Opioid dependence, Methamphetamine dependence, Hepatitis C Referrals: [facility] [STAFF PHYSICIAN] -
--- NOTE | 2019-11-25 14:33 | HP.PCM_ITS ---
Problem List (1) Hepatitis C Status: Chronic Qualifiers: Viral hepatitis chronicity: chronic Hepatic coma status: without hepatic coma Qualified Code(s): B18.2 - Chronic viral hepatitis C (2) Methamphetamine dependence Status: Chronic (3) Opioid dependence Status: Chronic (4) Opioid withdrawal Status: Acute (5) Abscess of skin of neck Status: Acute Comment: Posterior triangle of neck (6) Alcohol withdrawal delirium, acute, hyperactive Status: Acute (7) Cellulitis Status: Acute (8) Opioid withdrawal delirium, acute, hyperactive Status: Acute (9) Polysubstance (including opioids) dependence, daily use Status: Acute (10) Adderall use disorder, mild, abuse Status: Chronic (11) Alcohol abuse Status: Chronic (12) Heroin abuse Status: Chronic (13) IV drug user Status: Chronic (14) Methamphetamine abuse Status: Chronic (15) Tobacco use Status: Chronic (16) Left leg cellulitis Status: Resolved History of Present Illness Date of Admission: 11/25/19 Chief Complaint: requesting withdrawal The patient is a 29 year old M who snorts opiates which he thinks is probably more fentanyl than actual heroin. States that he does about half a gram per day. Also uses methamphetamines. Denies any other illicit drugs. Last use of opiates was around 2 days ago. He did use methamphetamines yesterday. Since then, he has been having muscle aches, muscle cramps, abdominal cramps, rhinorrhea, cough and headache. Patient is requesting opiate detoxification and eventual plan to get into a addiction program. He does not have a program at this time but states that his brother has been looking at it for him. [] Past Medical History Past Medical History (Chronic Problems): Chronic Problems Tobacco use (Chronic) IV drug user (Chronic) Heroin abuse (Chronic) Methamphetamine abuse (Chronic) Adderall use disorder, mild, abuse (Chronic) Alcohol abuse (Chronic) Opioid dependence (Chronic) Methamphetamine dependence (Chronic) Hepatitis C (Chronic) Allergies buprenorphine [From Suboxone] Adverse Reaction (Verified 11/25/19 13:42) makes my mouth go numb Pt states ok to take subutex naloxone [From Suboxone] Adverse Reaction (Verified 11/25/19 13:42) makes my mouth go home Home Medications: Ambulatory Orders Medication Instructions Recorded NK 07/10/18 Surgical History: no surgical history Psychiatric History: No pertinent psych hx Lives: Homeless Smoking Status: Current every day smoker Tobacco Use: Cigarettes Alcohol: Occasional Drugs: Heroin - *Family History Maternal History Items: Diabetes Paternal History Items: Diabetes Review of Systems Constitutional: Denies: Anorexia, Fever, Night Sweats Eyes: Denies: Blurred vision, Double vision HEENT: Denies: Head Aches, Sinus Congestion, Sinus Drainage Cardiovascular: Denies: Chest Pain, Palpitations Respiratory: Denies: Cough, Shortness of breath at rest, Sputum production Gastrointestinal: Reports: Abdominal Pain. Denies: Nausea, Vomiting Genitourinary: Denies: Dysuria Musculoskeletal: Denies: Joint Pain, Joint Tenderness Skin: Denies: Rash, Wounds Psychiatric: Denies: Anxiety, Depression Hematologic/ Lymphatic: Denies: Easy Bruising, Easy Bleeding, Hx of blood clot Comment: All review of systems were negative except as mentioned above in the history of present illness and the other review of systems. VTE Information - Inpt Only VTE Present on Admission: No VTE Pharm Prophylaxis ordered?: Yes Patient Problems: Active and Suspected Problems Opioid withdrawal (Acute) - Physical Exam Vitals/I&O's: Vital Signs Temp Pulse Resp BP Pulse Ox 36.4 C L 116 H 18 122/68 H 98 11/25/19 13:40 11/25/19 13:40 11/25/19 13:40 11/25/19 13:40 11/25/19 13:40 Oxygen Delivery Method Room Air Weight: 56.699 kg Body Mass Index (BMI) 20.7 General: Alert, - - Uncomfortable. Afebrile. Nontoxic. HEENT: Atraumatic, Normocephalic Oral: Moist Mucosa, No Gingival or Mucosal Lesions/ Ulcerations Neck: Trachea Midline Lungs: Clear to auscultation, Normal air movement, No rhonchi, No wheeze, No rales Cardiovascular: Regular rate, Regular Rhythm, Normal S1, Normal S2, No murmurs Abdomen: Bowel Sounds Present, Soft, Non Tender, Non-Distended, No Hepato- splenomegaly Extremities: No edema, No Calf Tenderness Skin: No rashes, No breakdown Psych/Mental Status: Normal Affect, Appropriate Assessment/Plan All Active Problems Left leg cellulitis (Resolved) Alcohol withdrawal delirium, acute, hyperactive (Acute) Opioid withdrawal delirium, acute, hyperactive (Acute) Polysubstance (including opioids) dependence, daily use (Acute) Abscess of skin of neck (Acute) Cellulitis (Acute) Opioid withdrawal (Acute) 1. Acute opiate withdrawal: Patient uses some combination of heroin and fentanyl. Is not sure of the actual contents of it. Patient will be initiated on buprenorphine taper. Patient does have a noted allergy and adverse reaction to it but I did talk to the patient beforehand and will proceed with that and if he does have any allergic issues and will discontinue that and treat any allergic reaction with the appropriate medications. Patient is noted allergy to buprenorphine is making his mouth go numb. 2. Methamphetamine abuse: Complicates overall care but just supportive management at this time. 3. VTE prophylaxis: Low risk. 4. Advanced care planning: Discussed with patient about very advanced directives. Patient states that he wishes to be DNR Comfort Care arrest. Told the patient that given his age I would recommend full CODE STATUS. He wishes to remain DNR Comfort Care arrest at this time. I did inform him that he could change his mind at any time if he so pleases. Inpatient E&M: [id number] Init Hosp L2
[2019-11-25 14:45] LABS: Absolute Lymphocyte Count 4.37 X10^3/uL (0.83-4.51); Absolute Neutrophil Count 5.7 X10^3/uL (2.0-7.7); Basophil# 0.08 X10^3/uL; Basophil% 0.7 % (0-1); Eosinophil# 0.66 X10^3/uL; Eosinophils% 5.6 % (0-5); Hematocrit 40.4 % (40-54); Hemoglobin 13.3 g/dL (13.0-16.5); Lymphocyte # 4.37 X10^3/ul (4.0); Lymphocyte % 37.1 % (19-41); Mean Corp Hgb Conc 32.9 g/dL (32-36); Mean Corpuscular Hgb 31.7 pg (27.0-32.0); Mean Corpuscular Volume 96.2 fL (80-94); Mean Platelet Vol. 10.7 fl (6.2-12.0); Monocyte# 0.92 X10^3/uL; Monocyte% 7.8 % (0-10); NRBC Flagged by Analyzer 0 % (0-5); Neutrophil # 5.68 X10^3/uL (2.7-7.7); Neutrophil % 48.1 % (47-70); Platelet Count 181 K/mm3 (150-450); RBC Distribution Width CV 13.5 % (11.6-14.6); White Blood Count 11.8 K/mm3 (4.4-11.0)
[2019-11-25 14:51] VITALS: BP 143/94; PULSE 112; RESP 15; TEMP 36.7; O2SAT 99
[2019-11-25 14:55] LABS: Alcohol, Blood (Medical)-Serum < 3.0 mg/dL
[2019-11-25 14:59] LABS: AST(SGOT) 42 U/L (15-37); Alanine Aminotransfer ALT/SGPT 79 U/L (16-61); Albumin, Serum 3.7 g/dL (3.2-5.0); Alkaline Phosphatase 81 U/L (45-117); Anion Gap 6 (5-15); BUN 16 mg/dL (7-18); BUN/Creat Ratio 23.2 RATIO (10-20); Calcium,Total 8.6 mg/dL (8.5-10.1); Chloride 105 mmol/L (98-107); Creatinine, Serum 0.69 mg/dL (0.70-1.30); EST Glomerular Filtration Rate 141 mL/min (>60); Est Glom Filt Rate - Afr Amer 171 mL/min (>60); Globulin 3.6 g/dL (2.2-4.2); Glucose 86 mg/dL (74-106); Potassium 4.6 mmol/L (3.5-5.1); Protein, Total 7.3 g/dL (6.4-8.2); Sodium Level 139 mmol/L (136-145)
--- NOTE | 2019-11-25 15:12 | CM.ED ---
SOCIAL WORK CALL TO DENISE AT [facility] TO UPDATE ON PATIENT'S ADMISSION. Mari ALMANZA, ATOMIC PROCESS ENGINEER, FIELD CHECKER.
[2019-11-25 15:26] VITALS: RESP 18; BMI 20.7; BMI 20.8
[2019-11-25 15:29] VITALS: BP 127/88; PULSE 102; RESP 18; TEMP 36.9; O2SAT 98
[2019-11-25] MEDS: Methocarbamol 750 MG Tablet 1500 MG PO (16:12)
[2019-11-25] MEDS: Gabapentin 300 MG Capsule PO (16:12)
[2019-11-25] MEDS: Buprenorphine HCl 2 MG TAB.SUBL 4 MG SL (16:17)
[2019-11-25 17:15] LABS: Amphetamine Urine VISTA POSITIVE (<1000 ng/mL); Barbiturate Urine VISTA NEGATIVE (< 200 ng/mL); Benzodiazepine Urine VISTA NEGATIVE (< 200 ng/mL); Cocaine Urine VISTA NEGATIVE (< 300 ng/mL); Ecstacy Urine VISTA NEGATIVE (< 500 ng/mL); Methadone Urine VISTA NEGATIVE (< 300 ng/mL); PCP Urine VISTA NEGATIVE (< 25 ng/mL); THC Urine VISTA NEGATIVE (< 50 ng/mL); Vista UDS pH Range 7
--- NOTE | 2019-11-25 22:20 | NURSING ---
notified by primary rn and pt that he would like to leave, ama paperwork signed but pt didnt want to take his copy states he doesnt need it. pt states the program isnt for him right now he doesnt want to wait until 2300 for his next subutex im too old for this shit encourage pt to followup with [facility] and that our program is here when he is ready. security came to floor to walk pt out. pt cooperative. pt has all his personal belongings per his report. denies needing staff to notify anyone and he states he has a ride. nursing supv notified. will notify
--- NOTE | 2019-11-26 00:07 | NURSING ---
11/25/192214 Patient stated that he wanted to leave. He didn't want to wait until his 0000 dose of Buprenophrine. This RN asked if I could do anything to help him and offered to give him some prn medications to help him feel better. Patient stated that the meds just make him sleep and that he doesn't want to be disrepectful, he just wants to leave. This RN said she really wanted him to get better and wants to do anything to help him achieve that. The patient communicated that 1) this program isn't for him right now 2) he might have some legal trouble 3) he just wants to leave. This RN agreed to get the charge nurse to get the AMA paperwork and wished the patient well.
--- NOTE | 2019-11-26 08:59 | DS.PCM_ITS ---
Discharge Date and Diagnosis Date of Admission: 11/25/19 Date of Discharge: 11/26/19 - Secondary Discharge Diagnosis Chronic Problems: Chronic Problems Tobacco use (Chronic) IV drug user (Chronic) Heroin abuse (Chronic) Methamphetamine abuse (Chronic) Adderall use disorder, mild, abuse (Chronic) Alcohol abuse (Chronic) Opioid dependence (Chronic) Methamphetamine dependence (Chronic) Hepatitis C (Chronic) Hospital Course and Treatment Operations: None Summary of Care Provided: The patient is a 29 year old M patient voluntarily presented for opiate withdrawal therapy voluntarily. Patient was made aware that we would be using a buprenorphine taper plus additional agents to help with other somatic complaints. Patient left AGAINST MEDICAL ADVICE. [] - Physical Exam Vitals/I&O's: Vital Signs Temp Pulse Resp BP Pulse Ox 36.9 C 102 H 18 127/88 H 98 11/25/19 15:29 11/25/19 15:29 11/25/19 15:29 11/25/19 15:29 11/25/19 15:29 Oxygen Delivery Method Room Air Weight: 56.699 kg Body Mass Index (BMI) 20.7 Intake and Output for Last 24 Hours 11/24/19 11/25/19 11/26/19 23:59 23:59 23:59 Intake Total 800 / 800 Balance 800 / 800 Laboratory Results 11/25/19 14:33: WBC 11.8 H, RBC 4.20 L, Hgb 13.3, Hct 40.4, MCV 96.2 H, MCH 31.7, MCHC 32.9, RDW Std Deviation 48.0 H, RDW Coeff of Anais 13.5, Plt Count 181, MPV 10.7, Immature Gran % (Auto) 0.700, Neut % (Auto) 48.1, Lymph % (Auto) 37.1, Sterling % (Auto) 7.8, Eos % (Auto) 5.6 H, Baso % (Auto) 0.7, Absolute Neuts (auto) 5.7, Absolute Lymphs (auto) 4.37, Nucleated RBC % 0 11/25/19 14:33: Sodium 139, Potassium 4.6, Chloride 105, Carbon Dioxide 28.0, Anion Gap 6, BUN 16, Creatinine 0.69 L, Estim Creat Clear Calc 124.40, Est GFR (MDRD) Af Amer 171, Est GFR (MDRD) Non-Af 141, BUN/Creatinine Ratio 23.2 H, Glucose 86, Calcium 8.6, Total Bilirubin 0.20, AST 42 H, ALT 79 H, Alkaline Phosphatase 81, Total Protein 7.3, Albumin 3.7, Globulin 3.6, Albumin/Globulin Ratio 1.0 11/25/19 14:33: Ethyl Alcohol < 3.0 11/25/19 16:47: Urine Opiates Screen NEGATIVE, Urine Methadone Screen NEGATIVE, Ur Barbiturates Screen NEGATIVE, Ur Phencyclidine Scrn NEGATIVE, Ur Amphetamines Screen POSITIVE H, U Methamphetamin-MDMA NEGATIVE, U Benzodiazepines Scrn NEGATIVE, Urine Cocaine Screen NEGATIVE, U Cannabinoids Screen NEGATIVE, Ur Drug Screen Comment Home Medications: Medications to take at Discharge NK 07/10/18 Primary Care Physician: [facility] [STAFF PHYSICIAN] - Disposition: Against Medical Advice Medical Necessity - Tobacco Use Smoking Status: Current every day smoker Tobacco Use: Cigarettes Meaningful Use Info Meaningful Use Diagnoses (Choose all that apply): None applicable
== END 2019-11-25 22:20 | disposition left against medical advice (07) | DRG 770 ==
LOC: ED 14:12 → MS3 01-06 08:37
PROVIDERS: Emergency Provider Physician Assistant Medical
DX: F11.23 Opioid dependence with withdrawal (principal); F15.20 Other stimulant dependence, uncomplicated; F10.10 Alcohol abuse, uncomplicated; Y90.9 Presence of alcohol in blood, level not specified; B18.2 Chronic viral hepatitis C; F17.210 Nicotine dependence, cigarettes, uncomplicated; Z66 Do not resuscitate; Z53.29 Procedure and treatment not carried out because of patient's decision for other reasons; Z59.0 Homelessness
CPT/HCPCS: 80053; 80307; 80320; 85025; 99218; 99283; G0378; G0480

== ENCOUNTER 2019-12-02 11:31 | Emergency (ER) | payer MEDICAID, SELFPAY ==
[2019-11-25 15:26] VITALS: BMI 20.7
[2019-12-02 11:33] VITALS: BP 152/97; PULSE 99; RESP 18; TEMP 36.4; O2SAT 99; BMI 20.7
--- NOTE | 2019-12-02 12:08 | VDLE_ITS ---
Reason For Study: LLE swelling/pain Procedure LEFT Exam performed portable in ED. GSV is normal. The exam was diagnostic. CFV is compressible, spontaneous, phasic, A preliminary report was called and/or faxed competent, and demonstrates normal to ED. augmentation. FV is compressible, spontaneous, phasic, competent and demonstrates normal augmentation. POP V is compressible, spontaneous, phasic, competent and demonstrates normal augmentation. T/P Trunk is compressible. PTV is compressible. LT PerV is compressible. Interpretation Summary There is no evidence of left lower extremity deep vein thrombosis. Left great saphenous vein appears patent and compressible segmentally. Ordering Physician: Bob Casanova Referring Physician: TOÑA PCP Performed By: Amber Perry, CHERYL, RVT
--- NOTE | 2019-12-02 12:55 | ED.VIS.GEN ---
History of Present Illness Informant: Patient Onset: Weeks - 1 week Context: Gradual Onset Timing: Continuous Quality: swelling Location: right face, left thigh Current Severity: Moderate Maximum Severity: Severe Worsened by: movement, palpation Relieved by: nothing Associated Symptoms: denies Narrative: 29-year-old male history of polysubstance abuse presents to the emergency department complaining of facial swelling and left thigh pain for the last 1 week. He has no fevers chills difficulty breathing or swallowing or difficulty opening closing his mouth. Denies any trauma to his leg but he is walking normally. He is not having back pain. He states he snorts the heroin he does not inject. He signed out AGAINST MEDICAL ADVICE from here 2 weeks ago for detox. His chest pain shortness of breath fevers or cough vomiting or diarrhea lightheadedness or dizziness numbness tingling or weakness. Prior similar symptoms: Yes Recent Illness/Hospitalization: Yes <Bob Casanova - Last Filed: 12/02/19 14:36> <Mitzy Cedillo - Last Filed: 12/13/19 23:52> Chief Complaint: Abscess Past Medical History Past Medical History: - - Polysubstance abuse Surgical History: no surgical history Lives: With Family Smoking Status: Current every day smoker Alcohol: Occasional Drugs: Heroin - Family History Maternal Family History: Reports: Diabetes Paternal Family History: Reports: Diabetes <Bob Casanova - Last Filed: 12/02/19 14:36> <Mitzy Cedillo - Last Filed: 12/13/19 23:52> - Allergies and Home Meds Allergies/Adverse Reactions: Allergies buprenorphine [From Suboxone] Adverse Reaction (Verified 12/02/19 11:35) makes my mouth go numb Pt states ok to take subutex naloxone [From Suboxone] Adverse Reaction (Verified 12/02/19 11:35) makes my mouth go home Primary Care Physician: Shayne Carmona MD [STAFF PHYSICIAN] - Review of Systems All systems negative except as indicated General: Denies: Chills, Fever, Malaise, Subjective, Sweats Eyes: Denies: Visual changes - bilaterally, Diplopia ENT: Reports: - - facial swelling. Denies: Bilateral ear pain, Left ear pain, Right ear pain, Rhinorrhea, Sore throat Cardiovascular: Denies: Chest pain, Palpitations Respiratory: Denies: Dyspnea, Cough, Dyspnea on exertion Gastrointestinal: Denies: Abdominal pain, Nausea, Vomiting, Diarrhea, Melena, Hematochezia Genitourinary: Denies: Dysuria, Hematuria, Frequency Musculoskeletal: Reports: Swelling, Extremity Pain. Denies: Back pain Skin: Denies: Rash, Wounds Neurological: Denies: Headache, Weakness, Numbness <Bob Casanova - Last Filed: 12/02/19 14:36> Physical Exam Vital Signs/Narrative: Vital Signs Temp Pulse Resp BP Pulse Ox 12/02/19 11:33 97.6 F L 99 18 152/97 H 99 Inital Vital Signs reviewed: Yes General: Well nourished, Well developed, No Acute Distress Head: Normocephalic, Atraumatic Eyes: Perrl, EOMI ENT: Moist mucous membranes, No rhinorrhea, - - Right-sided facial swelling with early infected hair follicle and abscess but there is no fluctuance, mild induration, mild surrounding cellulitis locally, no trismus drooling stridor voice is normal states , swallowing normally Neck: Supple, Nontender Cardiovascular: Regular rate, Regular rhythm, No murmurs Respiratory: No distress, CTA bilaterally, Chest nontender Abdomen: Soft, Nontender, Nondistended, Normal bowel sounds Back: Nontender, Normal Inspection Extremities: Nontender, No edema, - - Patient has a moderately swollen left thigh with what appears to be an early infected hair follicle in his mid anterior thigh but no focal abscess at that at this time. He is neurovascular intact distally. Compartments are soft. No lymphatic streaking. He has normal range of motion actively at the hip knee and ankle. Skin: Normal color, No rash Neurological: Alert, Oriented x3, Cranial nerves II-XII grossly intact, Normal Strength, Normal Sensation Psychological: Normal affect, Normal Mood <Bob Casanova - Last Filed: 12/02/19 14:36> Diagnostic/Tx/Re-eval - Medical Decision Making Patient's <Bob Casanova - Last Filed: 12/02/19 14:36> - Medical Decision Making Patient is evaluated for facial swelling on the right as well as left thigh pain for the past week. He appears nontoxic in no acute distress. He is sleeping throughout his stay in the emergency room. He is hemodynamically stable. His facial swelling is consistent with a possible superinfected impetigo. We placed on Bactrim for this. Lab work shows a very mild leukocytosis of 11.9 and very mild thrombocytopenia of 144. Patient does have a history of hepatitis. His duplex does not show any DVT. Patient's blood work for his CPK and BMP was hemolyzed. Patient did not want to be rechecked. I have a low suspicion for compartment syndrome or rhabdomyolysis and patient be discharged home with antibiotics. Patient has been sleeping in an office chair which might be contributing to his leg pain. He is counseled that he should sleep on a flat surface. <Mitzy Cedillo - Last Filed: 12/13/19 23:52> ED Disposition <Bob Casanova - Last Filed: 12/02/19 14:36> <Mitzy Cedillo - Last Filed: 12/13/19 23:52> - Plan for ED Patient: Disposition: Home or Assisted Living Diagnosis: Facial abscess, Hepatitis C, Alcohol abuse, IV drug user Instructions: ED Abscess Antibiotic Treatment Only Prescriptions: Smz/Tmp Ds [Bactrim Ds] 1 tab PO BID #14 tab Prescription Printed Referrals: Shayne Carmona MD [STAFF PHYSICIAN] -
[2019-12-02] MEDS: 0.9% Normal Saline 1,000 ML 1000 ML IV (12:57)
[2019-12-02 13:12] LABS: Absolute Lymphocyte Count 1.94 X10^3/uL (0.83-4.51); Absolute Neutrophil Count 8.6 X10^3/uL (2.0-7.7); Basophil# 0.04 X10^3/uL; Basophil% 0.3 % (0-1); Eosinophil# 0.34 X10^3/uL; Eosinophils% 2.9 % (0-5); Hematocrit 41.9 % (40-54); Hemoglobin 14.5 g/dL (13.0-16.5); Lymphocyte # 1.94 X10^3/ul (4.0); Lymphocyte % 16.3 % (19-41); Mean Corp Hgb Conc 34.6 g/dL (32-36); Mean Corpuscular Hgb 32.6 pg (27.0-32.0); Mean Corpuscular Volume 94.2 fL (80-94); Mean Platelet Vol. 11.6 fl (6.2-12.0); Monocyte# 0.95 X10^3/uL; NRBC Flagged by Analyzer 0 % (0-5); Neutrophil # 8.58 X10^3/uL (2.7-7.7); Neutrophil % 72.3 % (47-70); Platelet Count 144 K/mm3 (150-450); RBC Distribution Width CV 13.2 % (11.6-14.6); RBC Distribution Width SD 44.8 fl (35.1-43.9); Red Blood Count 4.45 M/mm3 (4.6-6.2); White Blood Count 11.9 K/mm3 (4.4-11.0)
--- NOTE | 2019-12-02 13:18 | NURSING ---
[facility] [place] HEMOLIZED
[2019-12-02 15:46] VITALS: BP 143/87; PULSE 90; RESP 18; O2SAT 100
== END 2019-12-02 15:54 | disposition home or self-care (01) ==
PROVIDERS: Emergency Provider Physician Assistant Medical
DX: L02.01 Cutaneous abscess of face (principal); B19.20 Unspecified viral hepatitis C without hepatic coma; F10.10 Alcohol abuse, uncomplicated; M79.652 Pain in left thigh; F17.200 Nicotine dependence, unspecified, uncomplicated
CPT/HCPCS: 85025; 93971; 96360; 99284; J7030; A4216